=== PATIENT | female | born 1955 | race African-American/Black ===

== ENCOUNTER 2016-10-10 20:26 | Emergency (ER) | payer MEDICAID ==
[~2016-10-10] VITALS: Ht 170.2 cm; Wt 68.0 kg
[2016-10-11 02:00] LABS: CLARITY URINE CLEAR (CLEAR); COLOR URINE YELLOW (YELLOW); GLUCOSE URINE NEGATIVE (NEGATIVE); KETONES URINE NEGATIVE (NEGATIVE); LEUKOCYTE ESTERASE URINE NEGATIVE (NEGATIVE); NITRITE URINE NEGATIVE (NEGATIVE); OCCULT BLOOD URINE NEGATIVE (NEGATIVE); PH URINE 5.5 (4.5-8.0); PROTEIN URINE NEGATIVE (NEGATIVE); SPECIFIC GRAVITY URINE 1.006 (1.005-1.030); UROBILINOGEN URINE 0.2 E.U./dL (0.2-1.0)
[2016-10-11 08:48] VITALS: BP 133/71
== END 2016-10-11 09:20 | disposition home or self-care (01) ==
LOC: ER 10-11 00:23
DX: F10.129 Alcohol abuse with intoxication, unspecified (principal); M25.562 Pain in left knee; J06.9 Acute upper respiratory infection, unspecified; I10 Essential (primary) hypertension
CPT/HCPCS: 36415; 71010; 73562; 81003; 99285; G0482; Z7610

== ENCOUNTER 2016-11-05 18:38 | Emergency (ER) | payer MEDICAID ==
[~2016-11-05] VITALS: Ht 165.1 cm; Wt 60.0 kg
[2016-11-05] MEDS ORDERED: IBUPROFEN 600MG TABLET PO ONE (23:00)
[2016-11-06 00:01] LABS: CLARITY URINE CLEAR (CLEAR); COLOR URINE YELLOW (YELLOW); GLUCOSE URINE NEGATIVE (NEGATIVE); KETONES URINE NEGATIVE (NEGATIVE); LEUKOCYTE ESTERASE URINE NEGATIVE (NEGATIVE); NITRITE URINE NEGATIVE (NEGATIVE); OCCULT BLOOD URINE TRACE (NEGATIVE); PH URINE 5.5 (4.5-8.0); PROTEIN URINE NEGATIVE (NEGATIVE); SPECIFIC GRAVITY URINE 1.009 (1.005-1.030)
[2016-11-06 00:07] LABS: BACTERIA URINE 1+; CALCIUM PHOSPHATE CRYSTALS UR NONE SEEN /lpf; RBC URINE 0-2 /hpf (0-2); SQUAMOUS EPITHELIAL CELL URINE 1+ /lpf (RARE/1+); WAXY CASTS URINE NONE SEEN /lpf; WBC URINE NONE SEEN /hpf (0-2); YEAST URINE NONE SEEN
[2016-11-06 01:32] VITALS: BP 142/90
== END 2016-11-06 01:32 | disposition home or self-care (01) ==
LOC: ER 22:34
DX: M25.561 Pain in right knee (principal); M19.90 Unspecified osteoarthritis, unspecified site; F10.20 Alcohol dependence, uncomplicated; I10 Essential (primary) hypertension; F17.210 Nicotine dependence, cigarettes, uncomplicated
CPT/HCPCS: 73562; 81001; 81003; 99285

== ENCOUNTER 2016-11-15 02:54 | Emergency (ER) | payer MEDICAID ==
[~2016-11-15] VITALS: Ht 162.6 cm; Wt 64.0 kg
[2016-11-15] MEDS ORDERED: KETOROLAC 60MG/2ML VIAL IM ONE (06:45)
[2016-11-15 09:00] VITALS: BP 133/73
== END 2016-11-15 09:02 | disposition home or self-care (01) ==
LOC: ER 02:54
DX: S43.402A Unspecified sprain of left shoulder joint, initial encounter (principal); R07.81 Pleurodynia; E11.9 Type 2 diabetes mellitus without complications; I10 Essential (primary) hypertension; J45.909 Unspecified asthma, uncomplicated; F17.200 Nicotine dependence, unspecified, uncomplicated; W18.30XA Fall on same level, unspecified, initial encounter; Y93.89 Activity, other specified; Y99.8 Other external cause status; Y92.811 Bus as the place of occurrence of the external cause
CPT/HCPCS: 71010; 73030; 96372; 99284; J1885; Z7610

== ENCOUNTER 2016-11-16 11:35 | Emergency (ER) | payer MEDICAID ==
[~2016-11-16] VITALS: Ht 162.6 cm; Wt 50.0 kg
[2016-11-16 11:56] VITALS: BP 107/57
== END 2016-11-16 14:54 | disposition home or self-care (01) ==
LOC: ER 13:21
DX: R91.1 Solitary pulmonary nodule (principal); R07.81 Pleurodynia; J45.909 Unspecified asthma, uncomplicated; I10 Essential (primary) hypertension; F17.210 Nicotine dependence, cigarettes, uncomplicated
CPT/HCPCS: 71101; 99283; 99284

== ENCOUNTER 2016-11-19 11:36 | Emergency (ER) | payer MEDICAID ==
[~2016-11-19] VITALS: Ht 162.6 cm; Wt 59.0 kg
[2016-11-19] MEDS ORDERED: SODIUM CHLORIDE 0.9% 1,000 ML IV ONE (12:23)
[2016-11-19] MEDS ORDERED: ACETAMINOPHEN 325MG TABLET PO ONE (12:30)
[2016-11-19 12:58] LABS: BASOPHILS % 0.6 % (0.0-2.0); EOSINOPHILS % 0.8 % (0.0-5.0); HEMATOCRIT. 34.4 % (36.0-48.0); HEMOGLOBIN. 11.6 g/dL (12.0-16.0); LYMPHOCYTES % 15.7 % (20.0-50.0); MEAN CORPUSCULAR HEMOGLOBIN 32.8 pg (28.0-32.0); MEAN CORPUSCULAR HGB CONC 33.6 g/dL (31.0-37.0); MEAN CORPUSCULAR VOLUME 97.6 fL (81.0-99.0); MEAN PLATELET VOLUME 7.2 fl (7.4-10.4); MONOCYTES % 9.5 % (2.0-8.0); NEUTROPHILS % 73.4 % (40.0-76.0); PLATELET 477 x1000/uL (130-400); RED BLOOD CELL COUNT 3.52 mill/uL (4.2-5.4); RED CELL DISTRIBUTION WIDTH 13.9 % (11.6-14.6); WHITE BLOOD COUNT 4.6 x1000/uL (4.5-11.0)
[2016-11-19 12:59] LABS: ALBUMIN 3.2 g/dL (3.4-5.0); ANION GAP 17; CALCIUM 8.5 mg/dL (8.5-10.1); CARBON DIOXIDE 27 mEq/L (21-32); CHLORIDE 97 mEq/L (98-107); INDEX HEMOLYSI 1 (1-3); INDEX ICTERIC 1 (1-4); INDEX LIPEMIC 1 (1-3); UREA NITROGEN BLOOD 5 mg/dL (7-21)
[2016-11-19 13:04] LABS: ALANINE AMINOTRANSFERASE 18 IU/L (13-61); ETHANOL BLOOD 221 mg/dL; eGFR > 60 mL/min (>60)
[2016-11-19 16:38] VITALS: BP 112/80
== END 2016-11-19 17:13 | disposition home or self-care (01) ==
LOC: ER 12:41
DX: F10.129 Alcohol abuse with intoxication, unspecified (principal); F17.200 Nicotine dependence, unspecified, uncomplicated; W10.9XXA Fall (on) (from) unspecified stairs and steps, initial encounter; Y93.89 Activity, other specified; Y99.9 Unspecified external cause status; Y92.89 Other specified places as the place of occurrence of the external cause
CPT/HCPCS: 36415; 70450; 71010; 72170; 80053; 85025; 99285; G0482; J7030

== ENCOUNTER 2016-11-24 15:04 | Emergency (ER) | payer MEDICAID ==
[~2016-11-24] VITALS: Ht 162.6 cm; Wt 60.0 kg
[2016-11-24 16:04] VITALS: BP 100/49
[2016-11-24] MEDS ORDERED: ACETAMINOPHEN 325MG TABLET PO ONE (20:00)
== END 2016-11-25 00:24 | disposition home or self-care (01) ==
LOC: ER 15:07
DX: S20.212A Contusion of left front wall of thorax, initial encounter (principal); S09.90XA Unspecified injury of head, initial encounter; F10.129 Alcohol abuse with intoxication, unspecified; I10 Essential (primary) hypertension; F17.200 Nicotine dependence, unspecified, uncomplicated; W19.XXXA Unspecified fall, initial encounter; Y93.89 Activity, other specified; Y99.8 Other external cause status; Y92.89 Other specified places as the place of occurrence of the external cause
CPT/HCPCS: 70450; 71010; 72125; 99284; Z7610

== ENCOUNTER 2016-11-28 19:40 | Emergency (ER) | payer MEDICAID ==
[~2016-11-28] VITALS: Ht 162.6 cm; Wt 59.0 kg
[2016-11-28] MEDS ORDERED: IBUPROFEN 600MG TABLET PO ONE (22:15)
[2016-11-28 22:27] LABS: BASOPHILS % 0.2 % (0.0-2.0); EOSINOPHILS % 0.5 % (0.0-5.0); HEMATOCRIT. 31.8 % (36.0-48.0); HEMOGLOBIN. 10.9 g/dL (12.0-16.0); LYMPHOCYTES % 34.8 % (20.0-50.0); MEAN CORPUSCULAR HEMOGLOBIN 33.2 pg (28.0-32.0); MEAN CORPUSCULAR HGB CONC 34.1 g/dL (31.0-37.0); MEAN CORPUSCULAR VOLUME 97.3 fL (81.0-99.0); MEAN PLATELET VOLUME 7.4 fl (7.4-10.4); MONOCYTES % 8.6 % (2.0-8.0); NEUTROPHILS % 55.9 % (40.0-76.0); PLATELET 190 x1000/uL (130-400); RED BLOOD CELL COUNT 3.27 mill/uL (4.2-5.4); RED CELL DISTRIBUTION WIDTH 14.2 % (11.6-14.6); WHITE BLOOD COUNT 4.2 x1000/uL (4.5-11.0)
[2016-11-28 22:32] LABS: CHLORIDE 99 mEq/L (98-107); INDEX HEMOLYSI 1 (1-3); INDEX ICTERIC 1 (1-4); INDEX LIPEMIC 1 (1-3)
[2016-11-28 22:35] LABS: CLARITY URINE CLEAR (CLEAR); COLOR URINE YELLOW (YELLOW); GLUCOSE URINE NEGATIVE (NEGATIVE); KETONES URINE NEGATIVE (NEGATIVE); LEUKOCYTE ESTERASE URINE NEGATIVE (NEGATIVE); NITRITE URINE NEGATIVE (NEGATIVE); OCCULT BLOOD URINE NEGATIVE (NEGATIVE); PH URINE 5.5 (4.5-8.0); PROTEIN URINE NEGATIVE (NEGATIVE); SPECIFIC GRAVITY URINE 1.006 (1.005-1.030); UROBILINOGEN URINE 0.2 E.U./dL (0.2-1.0)
[2016-11-28 22:42] LABS: ALANINE AMINOTRANSFERASE 15 IU/L (13-61); ALBUMIN 3.3 g/dL (3.4-5.0); ANION GAP 11; CALCIUM 8.1 mg/dL (8.5-10.1); CARBON DIOXIDE 29 mEq/L (21-32); UREA NITROGEN BLOOD 8 mg/dL (7-21); eGFR > 60 mL/min (>60)
[2016-11-28 22:49] LABS: ETHANOL BLOOD 308 mg/dL
[2016-11-28 22:50] LABS: *AMPHETAMINES SCREEN URINE NEGATIVE (NEGATIVE); *BARBITURATES SCREEN URINE NEGATIVE (NEGATIVE); *BENZODIAZEPINES SCREEN URINE NEGATIVE (NEGATIVE); *COCAINE SCREEN URINE PRESUMTIVE POSITIVE (NEGATIVE); CANNABINOID URINE SCREEN NEGATIVE (NEGATIVE); ECSTASY MDMA SCREEN URINE NEGATIVE (NEGATIVE); METHADONE URINE SCREEN NEGATIVE (NEGATIVE); OPIATES URINE SCREEN NEGATIVE (NEGATIVE); PHENCYCLIDINE URINE SCREEN NEGATIVE (NEGATIVE)
[2016-11-29 16:45] VITALS: BP 146/85
== END 2016-11-29 17:20 | disposition home or self-care (01) ==
LOC: ER 22:17
DX: S20.219A Contusion of unspecified front wall of thorax, initial encounter (principal); F10.129 Alcohol abuse with intoxication, unspecified; F14.10 Cocaine abuse, uncomplicated; I10 Essential (primary) hypertension; R10.9 Unspecified abdominal pain; F17.200 Nicotine dependence, unspecified, uncomplicated; W10.8XXA Fall (on) (from) other stairs and steps, initial encounter; Y93.89 Activity, other specified; Y99.8 Other external cause status; Y92.89 Other specified places as the place of occurrence of the external cause
CPT/HCPCS: 36415; 71101; 80053; 80305; 81003; 85025; 99285; G0482

== ENCOUNTER 2016-11-30 16:47 | Emergency (ER) | payer MEDICAID | END 2016-11-30 20:58 | disposition left against medical advice (07) | LOC: ER 20:34 | DX: R06.02 Shortness of breath (principal); Z53.21 Procedure and treatment not carried out due to patient leaving prior to being seen by health care provider ==

== ENCOUNTER 2016-12-02 12:30 | Emergency (ER) | payer MEDICAID ==
[~2016-12-02] VITALS: Ht 162.6 cm; Wt 59.0 kg
[2016-12-02] MEDS ORDERED: KETOROLAC 30MG/ML VIAL IV STA (14:10)
[2016-12-02] MEDS ORDERED: KETOROLAC 30MG/ML VIAL IV ONE (14:15)
[2016-12-02 14:27] LABS: BASOPHILS % 0.4 % (0.0-2.0); EOSINOPHILS % 0.1 % (0.0-5.0); HEMATOCRIT. 32.3 % (36.0-48.0); HEMOGLOBIN. 10.9 g/dL (12.0-16.0); LYMPHOCYTES % 10.7 % (20.0-50.0); MEAN CORPUSCULAR HEMOGLOBIN 32.7 pg (28.0-32.0); MEAN CORPUSCULAR HGB CONC 33.7 g/dL (31.0-37.0); MEAN CORPUSCULAR VOLUME 96.9 fL (81.0-99.0); MEAN PLATELET VOLUME 7.5 fl (7.4-10.4); MONOCYTES % 7.4 % (2.0-8.0); NEUTROPHILS % 81.4 % (40.0-76.0); PLATELET 204 x1000/uL (130-400); RED BLOOD CELL COUNT 3.34 mill/uL (4.2-5.4); RED CELL DISTRIBUTION WIDTH 14.1 % (11.6-14.6); WHITE BLOOD COUNT 10.6 x1000/uL (4.5-11.0)
[2016-12-02 14:35] LABS: CHLORIDE 101 mEq/L (98-107); INDEX HEMOLYSI 1 (1-3); INDEX ICTERIC 1 (1-4); INDEX LIPEMIC 1 (1-3)
[2016-12-02 14:37] LABS: INR 0.9; PARTIAL THROMBOPLASTIN TIME 31.4 sec (24.0-34.0); PROTHROMBIN TIME 9.7 sec
[2016-12-02 14:38] LABS: CLARITY URINE CLEAR (CLEAR); COLOR URINE YELLOW (YELLOW); GLUCOSE URINE NEGATIVE (NEGATIVE); KETONES URINE NEGATIVE (NEGATIVE); LEUKOCYTE ESTERASE URINE NEGATIVE (NEGATIVE); NITRITE URINE NEGATIVE (NEGATIVE); OCCULT BLOOD URINE NEGATIVE (NEGATIVE); PH URINE 5.5 (4.5-8.0); PROTEIN URINE NEGATIVE (NEGATIVE); SPECIFIC GRAVITY URINE 1.009 (1.005-1.030); UROBILINOGEN URINE 0.2 E.U./dL (0.2-1.0)
[2016-12-02 14:42] LABS: ALANINE AMINOTRANSFERASE 13 IU/L (13-61); ANION GAP 14; CALCIUM 8.6 mg/dL (8.5-10.1); CARBON DIOXIDE 24 mEq/L (21-32); ETHANOL BLOOD 158 mg/dL; UREA NITROGEN BLOOD 6 mg/dL (7-21); eGFR > 60 mL/min (>60)
[2016-12-02 14:45] LABS: TROPONIN I < 0.02 ng/mL (0.00-0.04)
[2016-12-02 15:01] LABS: *AMPHETAMINES SCREEN URINE NEGATIVE (NEGATIVE); *BARBITURATES SCREEN URINE NEGATIVE (NEGATIVE); *BENZODIAZEPINES SCREEN URINE NEGATIVE (NEGATIVE); *COCAINE SCREEN URINE NEGATIVE (NEGATIVE); CANNABINOID URINE SCREEN NEGATIVE (NEGATIVE); ECSTASY MDMA SCREEN URINE NEGATIVE (NEGATIVE); METHADONE URINE SCREEN NEGATIVE (NEGATIVE); OPIATES URINE SCREEN NEGATIVE (NEGATIVE); PHENCYCLIDINE URINE SCREEN NEGATIVE (NEGATIVE)
[2016-12-02 17:16] VITALS: BP 124/69
== END 2016-12-02 17:17 | disposition home or self-care (01) ==
LOC: ER 14:16
DX: R07.89 Other chest pain (principal); F10.10 Alcohol abuse, uncomplicated; J45.909 Unspecified asthma, uncomplicated; I10 Essential (primary) hypertension; F17.200 Nicotine dependence, unspecified, uncomplicated; F14.10 Cocaine abuse, uncomplicated; Y90.6 Blood alcohol level of 120-199 mg/100 ml
CPT/HCPCS: 36415; 71010; 80053; 80305; 81003; 84484; 85025; 85610; 85730; 93005; 96374; 99285; G0482; J1885; Z7610

== ENCOUNTER 2016-12-07 19:24 | Emergency (ER) | payer MEDICAID | END 2016-12-07 20:52 | disposition left against medical advice (07) | LOC: ER 19:25 | DX: Z53.21 Procedure and treatment not carried out due to patient leaving prior to being seen by health care provider (principal) ==

== ENCOUNTER 2016-12-16 21:18 | Emergency (ER) | payer MEDICAID ==
[~2016-12-16] VITALS: Ht 162.6 cm; Wt 58.0 kg
[2016-12-17] MEDS ORDERED: IBUPROFEN 600MG TABLET PO STA (00:32)
[2016-12-17 01:09] LABS: CHLORIDE 105 mEq/L (98-107)
[2016-12-17 01:11] LABS: BASOPHILS % 0.3 % (0.0-2.0); EOSINOPHILS % 0.9 % (0.0-5.0); HEMATOCRIT. 35.5 % (36.0-48.0); HEMOGLOBIN. 12.1 g/dL (12.0-16.0); LYMPHOCYTES % 42.7 % (20.0-50.0); MEAN CORPUSCULAR HEMOGLOBIN 32.8 pg (28.0-32.0); MEAN CORPUSCULAR VOLUME 96.2 fL (81.0-99.0); MEAN PLATELET VOLUME 7.5 fl (7.4-10.4); MONOCYTES % 8.6 % (2.0-8.0); NEUTROPHILS % 47.5 % (40.0-76.0); PLATELET 213 x1000/uL (130-400); RED BLOOD CELL COUNT 3.69 mill/uL (4.2-5.4)
[2016-12-17 01:18] LABS: CARBON DIOXIDE 28 mEq/L (21-32)
[2016-12-17 01:28] LABS: CLARITY URINE CLEAR (CLEAR); COLOR URINE YELLOW (YELLOW); GLUCOSE URINE NEGATIVE (NEGATIVE); KETONES URINE NEGATIVE (NEGATIVE); LEUKOCYTE ESTERASE URINE NEGATIVE (NEGATIVE); NITRITE URINE NEGATIVE (NEGATIVE); OCCULT BLOOD URINE NEGATIVE (NEGATIVE); PROTEIN URINE NEGATIVE (NEGATIVE); SPECIFIC GRAVITY URINE 1.008 (1.005-1.030); UROBILINOGEN URINE 0.2 E.U./dL (0.2-1.0)
[2016-12-17 04:35] VITALS: BP 134/59
== END 2016-12-17 05:56 | disposition home or self-care (01) ==
LOC: ER 21:18
DX: J06.9 Acute upper respiratory infection, unspecified (principal); R07.81 Pleurodynia; J45.909 Unspecified asthma, uncomplicated; F17.210 Nicotine dependence, cigarettes, uncomplicated
CPT/HCPCS: 36415; 71010; 80053; 81003; 85025; 99285

== ENCOUNTER 2017-01-01 14:39 | Emergency (ER) | payer MEDICAID ==
[~2017-01-01] VITALS: Ht 162.6 cm; Wt 63.0 kg
[2017-01-01] MEDS ORDERED: KETOROLAC 60MG/2ML VIAL IM ONE (15:30)
[2017-01-01 15:54] LABS: CLARITY URINE CLEAR (CLEAR); COLOR URINE YELLOW (YELLOW); GLUCOSE URINE NEGATIVE (NEGATIVE); KETONES URINE NEGATIVE (NEGATIVE); LEUKOCYTE ESTERASE URINE NEGATIVE (NEGATIVE); NITRITE URINE NEGATIVE (NEGATIVE); OCCULT BLOOD URINE NEGATIVE (NEGATIVE); PH URINE 5.5 (4.5-8.0); PROTEIN URINE NEGATIVE (NEGATIVE); SPECIFIC GRAVITY URINE 1.007 (1.005-1.030); UROBILINOGEN URINE 0.2 E.U./dL (0.2-1.0)
[2017-01-01 16:03] LABS: *AMPHETAMINES SCREEN URINE NEGATIVE (NEGATIVE); *BARBITURATES SCREEN URINE NEGATIVE (NEGATIVE); *BENZODIAZEPINES SCREEN URINE NEGATIVE (NEGATIVE); *COCAINE SCREEN URINE PRESUMTIVE POSITIVE (NEGATIVE); CANNABINOID URINE SCREEN NEGATIVE (NEGATIVE); METHADONE URINE SCREEN NEGATIVE (NEGATIVE); OPIATES URINE SCREEN NEGATIVE (NEGATIVE); PHENCYCLIDINE URINE SCREEN NEGATIVE (NEGATIVE)
[2017-01-01 16:48] VITALS: BP 115/60
== END 2017-01-01 17:11 | disposition home or self-care (01) ==
LOC: ER 15:51
DX: M54.5 Low back pain (principal); F10.129 Alcohol abuse with intoxication, unspecified; R10.2 Pelvic and perineal pain; F14.10 Cocaine abuse, uncomplicated; J45.909 Unspecified asthma, uncomplicated; F17.200 Nicotine dependence, unspecified, uncomplicated
CPT/HCPCS: 72100; 80305; 81003; 96372; 99285; J1885

== ENCOUNTER 2017-01-07 11:59 | Emergency (ER) | payer MEDICAID ==
[~2017-01-07] VITALS: Ht 162.6 cm; Wt 61.0 kg
[2017-01-07] MEDS ORDERED: KETOROLAC 60MG/2ML VIAL IM ONE (13:00)
[2017-01-07 16:50] VITALS: BP 123/80
== END 2017-01-07 16:40 | disposition home or self-care (01) ==
LOC: ER 13:05
DX: S22.32XA Fracture of one rib, left side, initial encounter for closed fracture (principal); J45.909 Unspecified asthma, uncomplicated; I10 Essential (primary) hypertension; W01.0XXA Fall on same level from slipping, tripping and stumbling without subsequent striking against object, initial encounter; Y93.89 Activity, other specified; Y92.89 Other specified places as the place of occurrence of the external cause; Y99.8 Other external cause status
CPT/HCPCS: 71101; 93005; 96372; 99284; J1885; Z7610

== ENCOUNTER 2017-01-16 17:13 | Emergency (ER) | payer MEDICAID ==
[~2017-01-16] VITALS: Ht 162.6 cm; Wt 61.0 kg
[2017-01-16 17:54] VITALS: BP 128/92
[2017-01-16] MEDS ORDERED: MOTRIN (18:00)
== END 2017-01-16 20:43 | disposition left against medical advice (07) ==
LOC: ER 17:13
DX: R10.9 Unspecified abdominal pain (principal); Z53.21 Procedure and treatment not carried out due to patient leaving prior to being seen by health care provider

== ENCOUNTER 2017-01-18 19:58 | Emergency (ER) | payer MEDICAID ==
[~2017-01-18] VITALS: Ht 167.6 cm; Wt 59.0 kg
[~2017-01-18 19:58] MED LIST: MOTRIN
[2017-01-19] MEDS ORDERED: SODIUM CHLORIDE 0.9% 1,000 ML IV ONE (02:50)
[2017-01-19] MEDS ORDERED: ONDANSETRON HCL 4MG/2ML VIAL IV ONE (03:00)
[2017-01-19] MEDS ORDERED: KETOROLAC 30MG/ML VIAL IV ONE (03:00)
[2017-01-19 03:18] LABS: CLARITY URINE CLEAR (CLEAR); COLOR URINE YELLOW (YELLOW); GLUCOSE URINE NEGATIVE (NEGATIVE); KETONES URINE NEGATIVE (NEGATIVE); LEUKOCYTE ESTERASE URINE NEGATIVE (NEGATIVE); NITRITE URINE NEGATIVE (NEGATIVE); OCCULT BLOOD URINE NEGATIVE (NEGATIVE); PH URINE 5.5 (4.5-8.0); PROTEIN URINE NEGATIVE (NEGATIVE); SPECIFIC GRAVITY URINE 1.006 (1.005-1.030); UROBILINOGEN URINE 0.2 E.U./dL (0.2-1.0)
[2017-01-19 03:40] LABS: *AMPHETAMINES SCREEN URINE NEGATIVE (NEGATIVE); *BARBITURATES SCREEN URINE NEGATIVE (NEGATIVE); *BENZODIAZEPINES SCREEN URINE NEGATIVE (NEGATIVE); *COCAINE SCREEN URINE NEGATIVE (NEGATIVE); CANNABINOID URINE SCREEN NEGATIVE (NEGATIVE); METHADONE URINE SCREEN NEGATIVE (NEGATIVE); OPIATES URINE SCREEN NEGATIVE (NEGATIVE); PHENCYCLIDINE URINE SCREEN NEGATIVE (NEGATIVE)
[2017-01-19 07:25] VITALS: BP 122/73
== END 2017-01-19 08:24 | disposition home or self-care (01) ==
LOC: ER 19:59
DX: F10.10 Alcohol abuse, uncomplicated (principal); I10 Essential (primary) hypertension; F17.210 Nicotine dependence, cigarettes, uncomplicated; Y90.7 Blood alcohol level of 200-239 mg/100 ml; Z91.81 History of falling
CPT/HCPCS: 36415; 70450; 72040; 80305; 81003; 96361; 96374; 96375; 99285; G0482; J1885; J2405; J7030; Z7610

== ENCOUNTER 2017-01-22 15:52 | Emergency (ER) | payer MEDICAID ==
[~2017-01-22] VITALS: Ht 165.1 cm; Wt 65.0 kg
[2017-01-23] MEDS ORDERED: ACETAMINOPHEN 650MG/20.3ML UDC PO ONE (07:30)
[2017-01-23 12:00] VITALS: BP 126/84
== END 2017-01-23 12:31 | disposition home or self-care (01) ==
LOC: ER 16:22
DX: R07.81 Pleurodynia (principal); F10.129 Alcohol abuse with intoxication, unspecified; I10 Essential (primary) hypertension; E11.9 Type 2 diabetes mellitus without complications; J45.909 Unspecified asthma, uncomplicated; Y90.8 Blood alcohol level of 240 mg/100 ml or more
CPT/HCPCS: 36415; 71010; 99285; G0482

== ENCOUNTER 2017-01-29 15:21 | Emergency (ER) | payer MEDICAID ==
[~2017-01-29] VITALS: Ht 162.6 cm; Wt 62.0 kg
[2017-01-29 15:29] VITALS: BP 114/58
== END 2017-01-29 18:20 | disposition left against medical advice (07) ==
LOC: ER 15:21
DX: R10.9 Unspecified abdominal pain (principal); R11.0 Nausea; Z53.21 Procedure and treatment not carried out due to patient leaving prior to being seen by health care provider

== ENCOUNTER 2017-02-04 13:57 | Emergency (ER) | payer MEDICAID ==
[~2017-02-04] VITALS: Ht 165.1 cm; Wt 60.0 kg
[2017-02-04 14:00] VITALS: BP 138/91
== END 2017-02-04 21:34 | disposition left against medical advice (07) ==
LOC: ER 21:28
DX: R07.81 Pleurodynia (principal); Z53.21 Procedure and treatment not carried out due to patient leaving prior to being seen by health care provider

== ENCOUNTER 2017-02-10 15:16 | Emergency (ER) | payer MEDICAID ==
[~2017-02-10] VITALS: Ht 162.6 cm; Wt 59.0 kg
[2017-02-10] MEDS ORDERED: IBUPROFEN 600MG TABLET PO ONE (18:45)
[2017-02-10 19:35] VITALS: BP 110/60
== END 2017-02-10 21:20 | disposition home or self-care (01) ==
LOC: ER 17:56
DX: S22.42XA Multiple fractures of ribs, left side, initial encounter for closed fracture (principal); I11.9 Hypertensive heart disease without heart failure; I51.7 Cardiomegaly; F17.200 Nicotine dependence, unspecified, uncomplicated; W01.0XXA Fall on same level from slipping, tripping and stumbling without subsequent striking against object, initial encounter; Y93.89 Activity, other specified; Y92.89 Other specified places as the place of occurrence of the external cause; Y99.8 Other external cause status
CPT/HCPCS: 71111; 99284

== ENCOUNTER 2017-02-27 11:50 | Emergency (ER) | payer MEDICAID ==
[~2017-02-27] VITALS: Ht 160 cm; Wt 45.0 kg
[2017-02-27] MEDS ORDERED: SODIUM CHLORIDE 0.9% 1,000 ML IV ONE (12:08)
[2017-02-27] MEDS ORDERED: FAMOTIDINE 20MG/2ML VIAL IV ONE (12:15)
[2017-02-27 13:04] LABS: BASOPHILS % 0.1 % (0.0-2.0); EOSINOPHILS % 0.2 % (0.0-5.0); HEMATOCRIT. 33.2 % (36.0-48.0); HEMOGLOBIN. 11.5 g/dL (12.0-16.0); LYMPHOCYTES % 12.4 % (20.0-50.0); MEAN CORPUSCULAR HEMOGLOBIN 33.3 pg (28.0-32.0); MEAN CORPUSCULAR VOLUME 96.3 fL (81.0-99.0); NEUTROPHILS % 75.3 % (40.0-76.0); PLATELET 153 x1000/uL (130-400); RED BLOOD CELL COUNT 3.45 mill/uL (4.2-5.4); RED CELL DISTRIBUTION WIDTH 13.8 % (11.6-14.6)
[2017-02-27 13:12] LABS: *AMPHETAMINES SCREEN URINE NEGATIVE (NEGATIVE); *BARBITURATES SCREEN URINE NEGATIVE (NEGATIVE); *BENZODIAZEPINES SCREEN URINE NEGATIVE (NEGATIVE); *COCAINE SCREEN URINE NEGATIVE (NEGATIVE); CANNABINOID URINE SCREEN NEGATIVE (NEGATIVE); METHADONE URINE SCREEN NEGATIVE (NEGATIVE); OPIATES URINE SCREEN NEGATIVE (NEGATIVE); PHENCYCLIDINE URINE SCREEN NEGATIVE (NEGATIVE)
[2017-02-27 13:12] LABS: CARBON DIOXIDE 22 mEq/L (21-32); CHLORIDE 94 mEq/L (98-107); ETHANOL BLOOD 80 mg/dL
[2017-02-27 14:23] VITALS: BP 115/78
== END 2017-02-27 14:26 | disposition home or self-care (01) ==
LOC: ER 12:13
DX: F10.129 Alcohol abuse with intoxication, unspecified (principal); I10 Essential (primary) hypertension; J45.909 Unspecified asthma, uncomplicated; E11.9 Type 2 diabetes mellitus without complications; W01.0XXA Fall on same level from slipping, tripping and stumbling without subsequent striking against object, initial encounter; Y93.89 Activity, other specified; Y99.8 Other external cause status; Y92.89 Other specified places as the place of occurrence of the external cause
CPT/HCPCS: 36415; 80053; 80305; 85025; 96361; 96374; 99284; G0482; J3490; J7030; Z7610

== ENCOUNTER 2017-03-20 17:17 | Emergency (ER) | payer MEDICAID ==
[~2017-03-20] VITALS: Ht 165.1 cm; Wt 66.0 kg
[2017-03-20 19:55] LABS: BASOPHILS % 0.3 % (0.0-2.0); EOSINOPHILS % 0.7 % (0.0-5.0); HEMOGLOBIN. 9.9 g/dL (12.0-16.0); LYMPHOCYTES % 28.8 % (20.0-50.0); MEAN CORPUSCULAR HEMOGLOBIN 33.3 pg (28.0-32.0); MEAN CORPUSCULAR VOLUME 97.3 fL (81.0-99.0); MEAN PLATELET VOLUME 7.9 fl (7.4-10.4); MONOCYTES % 7.3 % (2.0-8.0); NEUTROPHILS % 62.9 % (40.0-76.0); PLATELET 270 x1000/uL (130-400); RED BLOOD CELL COUNT 2.98 mill/uL (4.2-5.4)
[2017-03-20 20:03] LABS: CARBON DIOXIDE 28 mEq/L (21-32); CHLORIDE 107 mEq/L (98-107); ETHANOL BLOOD 140 mg/dL
[2017-03-20 22:23] VITALS: BP 116/71
== END 2017-03-20 22:17 | disposition home or self-care (01) ==
LOC: ER 19:30
DX: R10.9 Unspecified abdominal pain (principal); F10.129 Alcohol abuse with intoxication, unspecified; I10 Essential (primary) hypertension; Y90.6 Blood alcohol level of 120-199 mg/100 ml
CPT/HCPCS: 36415; 80053; 82962; 83690; 85025; 99284; G0482

== ENCOUNTER 2017-03-21 04:37 | Emergency (ER) | payer MEDICAID ==
[~2017-03-21] VITALS: Ht 162.6 cm; Wt 61.0 kg
[2017-03-21] MEDS ORDERED: KETOROLAC 30MG/ML VIAL IV STA (07:42)
[2017-03-21 08:09] LABS: BASOPHILS % 0.2 % (0.0-2.0); EOSINOPHILS % 0.4 % (0.0-5.0); HEMATOCRIT. 28.9 % (36.0-48.0); HEMOGLOBIN. 9.7 g/dL (12.0-16.0); LYMPHOCYTES % 18.9 % (20.0-50.0); MEAN CORPUSCULAR VOLUME 98.4 fL (81.0-99.0); MEAN PLATELET VOLUME 7.7 fl (7.4-10.4); MONOCYTES % 8.7 % (2.0-8.0); NEUTROPHILS % 71.8 % (40.0-76.0); PLATELET 258 x1000/uL (130-400); RED BLOOD CELL COUNT 2.93 mill/uL (4.2-5.4); RED CELL DISTRIBUTION WIDTH 14.2 % (11.6-14.6)
[2017-03-21 08:10] LABS: GLUCOSE URINE NEGATIVE (NEGATIVE); KETONES URINE NEGATIVE (NEGATIVE); LEUKOCYTE ESTERASE URINE 1+ (NEGATIVE); NITRITE URINE NEGATIVE (NEGATIVE); OCCULT BLOOD URINE NEGATIVE (NEGATIVE); PH URINE 5.5 (4.5-8.0); PROTEIN URINE NEGATIVE (NEGATIVE); SPECIFIC GRAVITY URINE 1.021 (1.005-1.030); UROBILINOGEN URINE 0.2 E.U./dL (0.2-1.0)
[2017-03-21 08:14] LABS: CHLORIDE 110 mEq/L (98-107); CLARITY URINE CLOUDY (CLEAR); COLOR URINE YELLOW (YELLOW)
[2017-03-21 08:16] LABS: INR 0.9; PROTHROMBIN TIME 9.7 sec (9.4-11.6)
[2017-03-21 08:23] LABS: CARBON DIOXIDE 29 mEq/L (21-32); ETHANOL BLOOD < 10 mg/dL
[2017-03-21 08:31] LABS: *AMPHETAMINES SCREEN URINE NEGATIVE (NEGATIVE); *BARBITURATES SCREEN URINE NEGATIVE (NEGATIVE); *BENZODIAZEPINES SCREEN URINE NEGATIVE (NEGATIVE); CANNABINOID URINE SCREEN PRESUMTIVE POSITIVE (NEGATIVE); METHADONE URINE SCREEN NEGATIVE (NEGATIVE); OPIATES URINE SCREEN NEGATIVE (NEGATIVE); PHENCYCLIDINE URINE SCREEN NEGATIVE (NEGATIVE)
[2017-03-21 08:45] LABS: *COCAINE SCREEN URINE PRESUMTIVE POSITIVE (NEGATIVE)
[2017-03-21 09:30] VITALS: BP 107/57
== END 2017-03-21 10:28 | disposition home or self-care (01) ==
LOC: ER 04:37
DX: R10.32 Left lower quadrant pain (principal); F17.210 Nicotine dependence, cigarettes, uncomplicated; F14.10 Cocaine abuse, uncomplicated; F12.10 Cannabis abuse, uncomplicated
CPT/HCPCS: 36415; 80053; 80305; 81001; 81025; 83690; 85025; 85610; 96374; 99284; G0482; J1885; Z7610

== ENCOUNTER 2017-03-21 15:33 | Emergency (ER) | payer MEDICAID | END 2017-03-21 16:52 | disposition left against medical advice (07) | LOC: ER 15:33 | DX: M54.9 Dorsalgia, unspecified (principal); Z53.21 Procedure and treatment not carried out due to patient leaving prior to being seen by health care provider ==

== ENCOUNTER 2017-04-19 18:01 | Emergency (ER) | payer MEDICAID ==
[~2017-04-19] VITALS: Ht 160 cm; Wt 64.0 kg
[2017-04-19] MEDS ORDERED: LIDOCAINE HCL 1% 20ML VIAL (Pyxis) INJ MC ONE (21:45)
[2017-04-19] MEDS ORDERED: BACITRACIN ZINC OINT UDPKT TOP ONE (21:45)
[2017-04-19] MEDS ORDERED: TETANUS, DIPHTHERIA, PERTUSSIS VAC/PF 0.5ML (>7YR OLD) IM ONE (21:45)
[2017-04-20 05:29] VITALS: BP 108/73
== END 2017-04-20 06:51 | disposition home or self-care (01) ==
LOC: ER 18:31
DX: S01.01XA Laceration without foreign body of scalp, initial encounter (principal); S79.912A Unspecified injury of left hip, initial encounter; M85.80 Other specified disorders of bone density and structure, unspecified site; W01.0XXA Fall on same level from slipping, tripping and stumbling without subsequent striking against object, initial encounter; Y93.89 Activity, other specified; Y92.018 Other place in single-family (private) house as the place of occurrence of the external cause
CPT/HCPCS: 12002; 70450; 73502; 99284; J3490; X7700; Z7610

== ENCOUNTER 2017-05-14 16:23 | Emergency (ER) | payer MEDICAID ==
[~2017-05-14] VITALS: Ht 167.6 cm; Wt 55.0 kg
[2017-05-14] MEDS ORDERED: SODIUM CHLORIDE 0.9% 1,000 ML IV ONE (18:26)
[2017-05-14] MEDS ORDERED: ONDANSETRON HCL 4MG/2ML VIAL IV ONE (18:30)
[2017-05-14] MEDS ORDERED: ACETAMINOPHEN 325MG TABLET PO ONE (18:30)
[2017-05-14 19:09] LABS: CLARITY URINE CLOUDY (CLEAR); COLOR URINE YELLOW (YELLOW); GLUCOSE URINE NEGATIVE (NEGATIVE); KETONES URINE NEGATIVE (NEGATIVE); LEUKOCYTE ESTERASE URINE 2+ (NEGATIVE); NITRITE URINE POSITIVE (NEGATIVE); OCCULT BLOOD URINE TRACE (NEGATIVE); PROTEIN URINE NEGATIVE (NEGATIVE); UROBILINOGEN URINE 0.2 E.U./dL (0.2-1.0)
[2017-05-14 19:10] LABS: BASOPHILS % 0.2 % (0.0-2.0); EOSINOPHILS % 0.5 % (0.0-5.0); HEMATOCRIT. 35.7 % (36.0-48.0); HEMOGLOBIN. 12.1 g/dL (12.0-16.0); LYMPHOCYTES % 34.4 % (20.0-50.0); MEAN CORPUSCULAR HEMOGLOBIN 33.4 pg (28.0-32.0); MEAN CORPUSCULAR VOLUME 98.3 fL (81.0-99.0); MEAN PLATELET VOLUME 7.9 fl (7.4-10.4); MONOCYTES % 9.3 % (2.0-8.0); NEUTROPHILS % 55.6 % (40.0-76.0); PLATELET 290 x1000/uL (130-400); RED BLOOD CELL COUNT 3.63 mill/uL (4.2-5.4); RED CELL DISTRIBUTION WIDTH 13.8 % (11.6-14.6)
[2017-05-14 19:21] LABS: CARBON DIOXIDE 25 mEq/L (21-32); CHLORIDE 101 mEq/L (98-107); ETHANOL BLOOD 222 mg/dL
[2017-05-14 19:23] LABS: *AMPHETAMINES SCREEN URINE NEGATIVE (NEGATIVE); *BARBITURATES SCREEN URINE NEGATIVE (NEGATIVE); *BENZODIAZEPINES SCREEN URINE NEGATIVE (NEGATIVE); *COCAINE SCREEN URINE NEGATIVE (NEGATIVE); CANNABINOID URINE SCREEN NEGATIVE (NEGATIVE); OPIATES URINE SCREEN NEGATIVE (NEGATIVE); PHENCYCLIDINE URINE SCREEN NEGATIVE (NEGATIVE)
[2017-05-14 19:28] LABS: METHADONE URINE SCREEN NEGATIVE (NEGATIVE)
[2017-05-14 22:35] VITALS: BP 143/77
== END 2017-05-14 22:35 | disposition home or self-care (01) ==
LOC: ER 16:59
DX: S20.212A Contusion of left front wall of thorax, initial encounter (principal); S20.211A Contusion of right front wall of thorax, initial encounter; S00.01XA Abrasion of scalp, initial encounter; F10.129 Alcohol abuse with intoxication, unspecified; J45.909 Unspecified asthma, uncomplicated; I10 Essential (primary) hypertension; E11.9 Type 2 diabetes mellitus without complications; F17.200 Nicotine dependence, unspecified, uncomplicated; W10.9XXA Fall (on) (from) unspecified stairs and steps, initial encounter; Y93.89 Activity, other specified; Y92.89 Other specified places as the place of occurrence of the external cause; Y99.8 Other external cause status
CPT/HCPCS: 36415; 70450; 71111; 80048; 80305; 81001; 85025; 87086; 96361; 96374; 99285; G0482; J2405; J7030; Z7610

== ENCOUNTER 2017-05-19 17:51 | Emergency (ER) | payer MEDICAID ==
[~2017-05-19] VITALS: Ht 167.6 cm; Wt 59.0 kg
[2017-05-19] MEDS ORDERED: MORPHINE SULFATE 10 MG/ML CPJ IM ONE (18:45)
[2017-05-19] MEDS ORDERED: KETOROLAC 30MG/ML VIAL IM ONE (18:45)
[2017-05-20 06:14] VITALS: BP 152/73
== END 2017-05-20 06:30 | disposition home or self-care (01) ==
LOC: ER 17:55
DX: S09.90XA Unspecified injury of head, initial encounter (principal); T51.0X1A Toxic effect of ethanol, accidental (unintentional), initial encounter; I10 Essential (primary) hypertension; E11.9 Type 2 diabetes mellitus without complications; J45.909 Unspecified asthma, uncomplicated; F17.200 Nicotine dependence, unspecified, uncomplicated; W19.XXXA Unspecified fall, initial encounter; Y93.89 Activity, other specified; Y92.89 Other specified places as the place of occurrence of the external cause; Y99.8 Other external cause status
CPT/HCPCS: 36415; 70450; 73560; 82962; 96372; 99285; 99406; G0482; J1885; J2270; Z7610

== ENCOUNTER 2017-05-20 16:00 | Emergency (ER) | payer MEDICAID ==
[~2017-05-20] VITALS: Ht 162.6 cm; Wt 59.0 kg
[2017-05-20] MEDS ORDERED: IBUPROFEN 400MG TABLET PO ONE (19:15)
[2017-05-20 21:04] VITALS: BP 105/78
== END 2017-05-20 20:55 | disposition home or self-care (01) ==
LOC: ER 16:00
DX: R07.81 Pleurodynia (principal); R51 Headache; F17.200 Nicotine dependence, unspecified, uncomplicated
CPT/HCPCS: 99283; Z7610

== ENCOUNTER 2017-05-22 16:42 | Emergency (ER) | payer MEDICAID ==
[~2017-05-22] VITALS: Ht 162.6 cm; Wt 59.0 kg
[2017-05-22 19:51] LABS: CLARITY URINE CLOUDY (CLEAR); COLOR URINE YELLOW (YELLOW); GLUCOSE URINE NEGATIVE (NEGATIVE); KETONES URINE 1+ (NEGATIVE); LEUKOCYTE ESTERASE URINE 2+ (NEGATIVE); NITRITE URINE POSITIVE (NEGATIVE); OCCULT BLOOD URINE TRACE (NEGATIVE); PROTEIN URINE 1+ (NEGATIVE); SPECIFIC GRAVITY URINE 1.017 (1.005-1.030)
[2017-05-22] MEDS ORDERED: IBUPROFEN 600MG TABLET PO ONE (20:30)
[2017-05-22 20:32] VITALS: BP 147/76
== END 2017-05-22 21:56 | disposition home or self-care (01) ==
LOC: ER 16:53
DX: M13.861 Other specified arthritis, right knee (principal); N39.0 Urinary tract infection, site not specified
CPT/HCPCS: 73560; 81001; 99285

== ENCOUNTER 2017-05-24 23:42 | Emergency (ER) | payer MEDICAID ==
[~2017-05-24] VITALS: Ht 162.6 cm; Wt 54.0 kg
[2017-05-25 01:23] LABS: BASOPHILS % 0.2 % (0.0-2.0); EOSINOPHILS % 0.3 % (0.0-5.0); HEMATOCRIT. 35.8 % (36.0-48.0); HEMOGLOBIN. 12.2 g/dL (12.0-16.0); LYMPHOCYTES % 28.8 % (20.0-50.0); MEAN CORPUSCULAR HEMOGLOBIN 33.9 pg (28.0-32.0); MEAN CORPUSCULAR VOLUME 99.1 fL (81.0-99.0); MEAN PLATELET VOLUME 7.5 fl (7.4-10.4); MONOCYTES % 9.6 % (2.0-8.0); NEUTROPHILS % 61.1 % (40.0-76.0); PLATELET 224 x1000/uL (130-400); RED BLOOD CELL COUNT 3.61 mill/uL (4.2-5.4)
[2017-05-25 02:21] LABS: CARBON DIOXIDE 22 mEq/L (21-32); CHLORIDE 106 mEq/L (98-107)
[2017-05-25 02:40] LABS: ETHANOL BLOOD 354 mg/dL
[2017-05-25] MEDS ORDERED: BACITRACIN ZINC OINT UDPKT TOP ONE (03:30)
[2017-05-25] MEDS ORDERED: SODIUM CHLORIDE 0.9% 1,000 ML IV ONE (04:15)
[2017-05-25 06:00] VITALS: BP 118/80
== END 2017-05-25 08:49 | disposition home or self-care (01) ==
LOC: ER 23:42
DX: F10.129 Alcohol abuse with intoxication, unspecified (principal); I10 Essential (primary) hypertension; J45.909 Unspecified asthma, uncomplicated; E11.9 Type 2 diabetes mellitus without complications; Y90.8 Blood alcohol level of 240 mg/100 ml or more
CPT/HCPCS: 36415; 70450; 80053; 85025; 96360; 96361; 99285; G0482; J7030; Z7610

== ENCOUNTER 2017-05-27 19:28 | Emergency (ER) | payer MEDICAID ==
[~2017-05-27] VITALS: Ht 172.7 cm; Wt 64.0 kg
[2017-05-27 20:24] LABS: BASOPHILS % 0.6 % (0.0-2.0); EOSINOPHILS % 0.6 % (0.0-5.0); HEMATOCRIT. 34.2 % (36.0-48.0); HEMOGLOBIN. 11.6 g/dL (12.0-16.0); LYMPHOCYTES % 30.1 % (20.0-50.0); MEAN CORPUSCULAR HEMOGLOBIN 33.7 pg (28.0-32.0); MEAN CORPUSCULAR VOLUME 99.7 fL (81.0-99.0); MEAN PLATELET VOLUME 7.8 fl (7.4-10.4); MONOCYTES % 9.4 % (2.0-8.0); NEUTROPHILS % 59.3 % (40.0-76.0); PLATELET 226 x1000/uL (130-400); RED BLOOD CELL COUNT 3.43 mill/uL (4.2-5.4)
[2017-05-27 20:42] LABS: CHLORIDE 99 mEq/L (98-107)
[2017-05-27 20:47] LABS: CARBON DIOXIDE 28 mEq/L (21-32)
[2017-05-27 20:56] LABS: ETHANOL BLOOD 326 mg/dL
[2017-05-28 04:05] VITALS: BP 120/56
== END 2017-05-28 04:09 | disposition home or self-care (01) ==
LOC: ER 19:41
DX: T51.0X1A Toxic effect of ethanol, accidental (unintentional), initial encounter (principal); S09.90XA Unspecified injury of head, initial encounter; J45.909 Unspecified asthma, uncomplicated; I10 Essential (primary) hypertension; F17.200 Nicotine dependence, unspecified, uncomplicated; W19.XXXA Unspecified fall, initial encounter; Y93.89 Activity, other specified; Y99.8 Other external cause status; Y92.89 Other specified places as the place of occurrence of the external cause
CPT/HCPCS: 36415; 70450; 80053; 85025; 99285; G0482

== ENCOUNTER 2017-06-01 05:10 | Emergency (ER) | payer MEDICAID ==
[~2017-06-01] VITALS: Ht 162.6 cm; Wt 55.0 kg
[2017-06-01] MEDS ORDERED: ACETAMINOPHEN 325MG TABLET PO ONE (07:00)
[2017-06-01 07:43] LABS: BASOPHILS % 0.3 % (0.0-2.0); EOSINOPHILS % 0.1 % (0.0-5.0); HEMATOCRIT. 33.9 % (36.0-48.0); HEMOGLOBIN. 11.5 g/dL (12.0-16.0); LYMPHOCYTES % 23.7 % (20.0-50.0); MEAN CORPUSCULAR HEMOGLOBIN 33.7 pg (28.0-32.0); MEAN CORPUSCULAR VOLUME 99.3 fL (81.0-99.0); MEAN PLATELET VOLUME 7.1 fl (7.4-10.4); MONOCYTES % 9.2 % (2.0-8.0); NEUTROPHILS % 66.7 % (40.0-76.0); PLATELET 290 x1000/uL (130-400); RED BLOOD CELL COUNT 3.42 mill/uL (4.2-5.4); RED CELL DISTRIBUTION WIDTH 14.2 % (11.6-14.6)
[2017-06-01 07:50] LABS: CHLORIDE 108 mEq/L (98-107)
[2017-06-01 07:55] LABS: *AMPHETAMINES SCREEN URINE NEGATIVE (NEGATIVE); *BARBITURATES SCREEN URINE NEGATIVE (NEGATIVE); *BENZODIAZEPINES SCREEN URINE NEGATIVE (NEGATIVE); *COCAINE SCREEN URINE NEGATIVE (NEGATIVE); CANNABINOID URINE SCREEN NEGATIVE (NEGATIVE); METHADONE URINE SCREEN NEGATIVE (NEGATIVE); OPIATES URINE SCREEN NEGATIVE (NEGATIVE); PHENCYCLIDINE URINE SCREEN NEGATIVE (NEGATIVE)
[2017-06-01 07:56] LABS: CARBON DIOXIDE 26 mEq/L (21-32); ETHANOL BLOOD 233 mg/dL
[2017-06-01] MEDS ORDERED: SODIUM CHLORIDE 0.9% 1,000 ML IV ONE (08:15)
[2017-06-01 12:20] VITALS: BP 135/64
== END 2017-06-01 12:21 | disposition home or self-care (01) ==
LOC: ER 05:10
DX: S09.8XXA Other specified injuries of head, initial encounter (principal); I10 Essential (primary) hypertension; F10.129 Alcohol abuse with intoxication, unspecified; F17.210 Nicotine dependence, cigarettes, uncomplicated; F14.10 Cocaine abuse, uncomplicated; W01.0XXA Fall on same level from slipping, tripping and stumbling without subsequent striking against object, initial encounter; Y93.E9 Activity, other interior property and clothing maintenance
CPT/HCPCS: 36415; 70450; 80048; 80305; 85025; 96360; 96361; 99285; G0482; J7030; Z7610

== ENCOUNTER 2017-06-06 11:35 | Emergency (ER) | payer MEDICAID ==
[~2017-06-06] VITALS: Ht 162.6 cm; Wt 55.0 kg
[2017-06-06] MEDS ORDERED: IBUPROFEN 600MG TABLET PO STA (14:43)
[2017-06-06 14:55] VITALS: BP 102/66
== END 2017-06-06 15:51 | disposition home or self-care (01) ==
LOC: ER 11:44
DX: S09.90XA Unspecified injury of head, initial encounter (principal); W01.0XXA Fall on same level from slipping, tripping and stumbling without subsequent striking against object, initial encounter; M79.1 Myalgia; J45.909 Unspecified asthma, uncomplicated; F14.10 Cocaine abuse, uncomplicated; E11.9 Type 2 diabetes mellitus without complications; I10 Essential (primary) hypertension
CPT/HCPCS: 70450; 99284

== ENCOUNTER 2017-06-06 23:36 | Emergency (ER) | payer MEDICAID ==
[~2017-06-06] VITALS: Ht 165.1 cm; Wt 59.0 kg
[2017-06-07] MEDS ORDERED: SODIUM CHLORIDE 0.9% 1,000 ML IV ONE (01:33)
[2017-06-07 01:53] LABS: BASOPHILS % 0.3 % (0.0-2.0); EOSINOPHILS % 0.4 % (0.0-5.0); HEMATOCRIT. 32.8 % (36.0-48.0); HEMOGLOBIN. 11.3 g/dL (12.0-16.0); LYMPHOCYTES % 12.6 % (20.0-50.0); MEAN CORPUSCULAR HEMOGLOBIN 34.1 pg (28.0-32.0); MEAN CORPUSCULAR VOLUME 99.1 fL (81.0-99.0); MEAN PLATELET VOLUME 7.6 fl (7.4-10.4); MONOCYTES % 10.6 % (2.0-8.0); NEUTROPHILS % 76.1 % (40.0-76.0); PLATELET 217 x1000/uL (130-400); RED BLOOD CELL COUNT 3.31 mill/uL (4.2-5.4); RED CELL DISTRIBUTION WIDTH 14.1 % (11.6-14.6)
[2017-06-07 01:57] LABS: CHLORIDE 100 mEq/L (98-107)
[2017-06-07 02:06] LABS: CARBON DIOXIDE 27 mEq/L (21-32); ETHANOL BLOOD 112 mg/dL
[2017-06-07 06:40] VITALS: BP 151/93
== END 2017-06-07 07:01 | disposition home or self-care (01) ==
LOC: ER 23:36
DX: R51 Headache (principal); G31.2 Degeneration of nervous system due to alcohol; E11.9 Type 2 diabetes mellitus without complications; J45.909 Unspecified asthma, uncomplicated; F14.10 Cocaine abuse, uncomplicated; I10 Essential (primary) hypertension
CPT/HCPCS: 36415; 80053; 85025; 96360; 99284; G0482; J7030; Z7610

== ENCOUNTER 2017-06-08 17:30 | Emergency (ER) | payer MEDICAID ==
[~2017-06-08] VITALS: Ht 160 cm; Wt 65.0 kg
[2017-06-08 18:07] LABS: HEMATOCRIT. 33.6 % (36.0-48.0); HEMOGLOBIN. 11.3 g/dL (12.0-16.0); MEAN CORPUSCULAR HEMOGLOBIN 33.7 pg (28.0-32.0); MEAN CORPUSCULAR VOLUME 99.9 fL (81.0-99.0); MEAN PLATELET VOLUME 7.6 fl (7.4-10.4); PLATELET 234 x1000/uL (130-400); RED BLOOD CELL COUNT 3.37 mill/uL (4.2-5.4); RED CELL DISTRIBUTION WIDTH 14.1 % (11.6-14.6)
[2017-06-08 18:11] LABS: CHLORIDE 100 mEq/L (98-107)
[2017-06-08 18:16] LABS: CARBON DIOXIDE 26 mEq/L (21-32); ETHANOL BLOOD 272 mg/dL
[2017-06-08] MEDS: SODIUM CHLORIDE 0.9% 1,000 ML IV ONE (18:23)
[2017-06-08 18:39] LABS: *AMPHETAMINES SCREEN URINE NEGATIVE (NEGATIVE); *BARBITURATES SCREEN URINE NEGATIVE (NEGATIVE); *BENZODIAZEPINES SCREEN URINE NEGATIVE (NEGATIVE); *COCAINE SCREEN URINE NEGATIVE (NEGATIVE); CANNABINOID URINE SCREEN NEGATIVE (NEGATIVE); METHADONE URINE SCREEN NEGATIVE (NEGATIVE); OPIATES URINE SCREEN NEGATIVE (NEGATIVE); PHENCYCLIDINE URINE SCREEN NEGATIVE (NEGATIVE)
[2017-06-08 19:46] LABS: PLATELET ESTIMATE NORMAL
[2017-06-09 06:00] VITALS: BP 117/88
== END 2017-06-09 06:13 | disposition home or self-care (01) ==
LOC: ER 17:35
DX: S06.0X0A Concussion without loss of consciousness, initial encounter (principal); F10.129 Alcohol abuse with intoxication, unspecified; I10 Essential (primary) hypertension; E11.9 Type 2 diabetes mellitus without complications; J45.909 Unspecified asthma, uncomplicated; F17.200 Nicotine dependence, unspecified, uncomplicated; F14.10 Cocaine abuse, uncomplicated; W10.9XXA Fall (on) (from) unspecified stairs and steps, initial encounter; Y93.89 Activity, other specified; Y92.89 Other specified places as the place of occurrence of the external cause; Y99.8 Other external cause status
CPT/HCPCS: 36415; 70450; 70486; 80048; 80305; 83735; 85025; 93005; 96360; 99285; G0482; J7030

== ENCOUNTER 2017-06-11 16:56 | Emergency (ER) | payer MEDICAID, OTHER ==
[~2017-06-11] VITALS: Ht 162.6 cm; Wt 55.0 kg
[2017-06-12 02:19] LABS: CHLORIDE 102 mEq/L (98-107)
[2017-06-12 02:21] LABS: BASOPHILS % 0.3 % (0.0-2.0); EOSINOPHILS % 0.9 % (0.0-5.0); HEMATOCRIT. 33.4 % (36.0-48.0); HEMOGLOBIN. 11.3 g/dL (12.0-16.0); LYMPHOCYTES % 31.6 % (20.0-50.0); MEAN CORPUSCULAR VOLUME 97.7 fL (81.0-99.0); MEAN PLATELET VOLUME 7.6 fl (7.4-10.4); MONOCYTES % 11.3 % (2.0-8.0); NEUTROPHILS % 55.9 % (40.0-76.0); PLATELET 235 x1000/uL (130-400); RED BLOOD CELL COUNT 3.42 mill/uL (4.2-5.4); RED CELL DISTRIBUTION WIDTH 13.5 % (11.6-14.6)
[2017-06-12 02:30] LABS: CARBON DIOXIDE 29 mEq/L (21-32); ETHANOL BLOOD < 10 mg/dL
[2017-06-12] MEDS ORDERED: ACETAMINOPHEN 325MG TABLET PO ONE (03:45)
[2017-06-12 03:47] LABS: CLARITY URINE TURBID (CLEAR); COLOR URINE YELLOW (YELLOW); GLUCOSE URINE NEGATIVE (NEGATIVE); KETONES URINE NEGATIVE (NEGATIVE); LEUKOCYTE ESTERASE URINE 3+ (NEGATIVE); NITRITE URINE POSITIVE (NEGATIVE); OCCULT BLOOD URINE 1+ (NEGATIVE); PH URINE 6.5 (4.5-8.0); PROTEIN URINE NEGATIVE (NEGATIVE); UROBILINOGEN URINE 0.2 E.U./dL (0.2-1.0)
[2017-06-12 04:01] LABS: *AMPHETAMINES SCREEN URINE NEGATIVE (NEGATIVE); *BARBITURATES SCREEN URINE NEGATIVE (NEGATIVE); *BENZODIAZEPINES SCREEN URINE NEGATIVE (NEGATIVE); *COCAINE SCREEN URINE NEGATIVE (NEGATIVE); CANNABINOID URINE SCREEN NEGATIVE (NEGATIVE); METHADONE URINE SCREEN NEGATIVE (NEGATIVE); OPIATES URINE SCREEN NEGATIVE (NEGATIVE); PHENCYCLIDINE URINE SCREEN NEGATIVE (NEGATIVE)
[2017-06-12 05:44] VITALS: BP 143/93
== END 2017-06-12 06:46 | disposition home or self-care (01) ==
LOC: ER 17:35
DX: R51 Headache (principal); N39.0 Urinary tract infection, site not specified; I10 Essential (primary) hypertension; E11.9 Type 2 diabetes mellitus without complications; J45.909 Unspecified asthma, uncomplicated; F14.10 Cocaine abuse, uncomplicated; W19.XXXA Unspecified fall, initial encounter; Y93.89 Activity, other specified; Y92.89 Other specified places as the place of occurrence of the external cause; Y99.8 Other external cause status
CPT/HCPCS: 36415; 80053; 80305; 81001; 85025; 93005; 99285; G0482

== ENCOUNTER 2017-06-15 18:01 | Emergency (ER) | payer MEDICAID ==
[~2017-06-15] VITALS: Ht 162.6 cm; Wt 50.0 kg
[2017-06-15 23:32] LABS: CHLORIDE 105 mEq/L (98-107)
[2017-06-15 23:33] LABS: BASOPHILS % 0.3 % (0.0-2.0); EOSINOPHILS % 0.8 % (0.0-5.0); HEMATOCRIT. 35.5 % (36.0-48.0); HEMOGLOBIN. 11.7 g/dL (12.0-16.0); LYMPHOCYTES % 40.4 % (20.0-50.0); MEAN CORPUSCULAR HEMOGLOBIN 32.2 pg (28.0-32.0); MEAN CORPUSCULAR VOLUME 98.1 fL (81.0-99.0); MEAN PLATELET VOLUME 7.5 fl (7.4-10.4); NEUTROPHILS % 47.5 % (40.0-76.0); PLATELET 303 x1000/uL (130-400); RED BLOOD CELL COUNT 3.62 mill/uL (4.2-5.4)
[2017-06-15 23:41] LABS: CARBON DIOXIDE 29 mEq/L (21-32); ETHANOL BLOOD 123 mg/dL
[2017-06-16 00:11] LABS: CLARITY URINE CLEAR (CLEAR); COLOR URINE YELLOW (YELLOW); GLUCOSE URINE NEGATIVE (NEGATIVE); KETONES URINE NEGATIVE (NEGATIVE); LEUKOCYTE ESTERASE URINE 2+ (NEGATIVE); NITRITE URINE NEGATIVE (NEGATIVE); OCCULT BLOOD URINE NEGATIVE (NEGATIVE); PH URINE 5.5 (4.5-8.0); PROTEIN URINE NEGATIVE (NEGATIVE); SPECIFIC GRAVITY URINE 1.008 (1.005-1.030); UROBILINOGEN URINE 0.2 E.U./dL (0.2-1.0)
[2017-06-16 00:23] LABS: *AMPHETAMINES SCREEN URINE NEGATIVE (NEGATIVE); *BARBITURATES SCREEN URINE NEGATIVE (NEGATIVE); *BENZODIAZEPINES SCREEN URINE NEGATIVE (NEGATIVE); *COCAINE SCREEN URINE PRESUMTIVE POSITIVE (NEGATIVE); CANNABINOID URINE SCREEN NEGATIVE (NEGATIVE); METHADONE URINE SCREEN NEGATIVE (NEGATIVE); OPIATES URINE SCREEN NEGATIVE (NEGATIVE); PHENCYCLIDINE URINE SCREEN NEGATIVE (NEGATIVE)
[2017-06-16 06:35] VITALS: BP 147/68
== END 2017-06-16 07:35 | disposition home or self-care (01) ==
LOC: ER 18:08
DX: F14.10 Cocaine abuse, uncomplicated (principal); F10.129 Alcohol abuse with intoxication, unspecified; I10 Essential (primary) hypertension; E11.9 Type 2 diabetes mellitus without complications; J45.909 Unspecified asthma, uncomplicated
CPT/HCPCS: 36415; 80053; 80305; 81001; 85025; 99284; G0482

== ENCOUNTER 2017-06-17 01:06 | Emergency (ER) | payer MEDICAID ==
[~2017-06-17] VITALS: Ht 167.6 cm; Wt 64.0 kg
[2017-06-17 08:15] VITALS: BP 164/80
== END 2017-06-17 08:30 | disposition home or self-care (01) ==
LOC: ER 01:06
DX: R51 Headache (principal); I10 Essential (primary) hypertension; E11.9 Type 2 diabetes mellitus without complications; J45.909 Unspecified asthma, uncomplicated; F10.20 Alcohol dependence, uncomplicated; F14.10 Cocaine abuse, uncomplicated; W10.9XXA Fall (on) (from) unspecified stairs and steps, initial encounter; Y93.89 Activity, other specified; Y92.009 Unspecified place in unspecified non-institutional (private) residence as the place of occurrence of the external cause; Y99.8 Other external cause status
CPT/HCPCS: 70450; 99284; Z7610

== ENCOUNTER 2017-06-17 13:33 | Emergency (ER) | payer MEDICAID ==
[~2017-06-17] VITALS: Ht 167.6 cm; Wt 75.0 kg
[2017-06-17 13:41] VITALS: BP 110/60
== END 2017-06-17 16:43 | disposition home or self-care (01) ==
LOC: ER 13:41
DX: R51 Headache (principal); I10 Essential (primary) hypertension; E11.9 Type 2 diabetes mellitus without complications; J45.909 Unspecified asthma, uncomplicated; F10.20 Alcohol dependence, uncomplicated; F17.200 Nicotine dependence, unspecified, uncomplicated; F14.10 Cocaine abuse, uncomplicated; W19.XXXA Unspecified fall, initial encounter; Y93.89 Activity, other specified; Y92.89 Other specified places as the place of occurrence of the external cause; Y99.8 Other external cause status
CPT/HCPCS: 99283

== ENCOUNTER 2017-06-26 20:42 | Emergency (ER) | payer MEDICAID ==
[~2017-06-26] VITALS: Ht 167.6 cm; Wt 69.0 kg
[2017-06-26 21:23] VITALS: BP 146/82
== END 2017-06-26 21:57 | disposition home or self-care (01) ==
LOC: ER 21:53
DX: F10.129 Alcohol abuse with intoxication, unspecified (principal); I10 Essential (primary) hypertension; E11.9 Type 2 diabetes mellitus without complications; J45.909 Unspecified asthma, uncomplicated; F19.10 Other psychoactive substance abuse, uncomplicated; Y09 Assault by unspecified means
CPT/HCPCS: 99283

== ENCOUNTER 2017-06-27 01:12 | Emergency (ER) | payer MEDICAID ==
[~2017-06-27] VITALS: Ht 162.6 cm; Wt 69.0 kg
[2017-06-27 01:18] VITALS: BP 126/66
== END 2017-06-27 02:28 | disposition home or self-care (01) ==
LOC: ER 01:12
DX: Z09 Encounter for follow-up examination after completed treatment for conditions other than malignant neoplasm (principal)
CPT/HCPCS: 99283

== ENCOUNTER 2017-06-27 22:19 | Emergency (ER) | payer MEDICAID ==
[~2017-06-27] VITALS: Ht 162.6 cm; Wt 73.0 kg
[2017-06-28 08:38] VITALS: BP 126/88
== END 2017-06-28 08:39 | disposition home or self-care (01) ==
LOC: ER 22:19
DX: F10.229 Alcohol dependence with intoxication, unspecified (principal); Y90.9 Presence of alcohol in blood, level not specified
CPT/HCPCS: 99283; Z7610

== ENCOUNTER 2017-07-03 19:39 | Emergency (ER) | payer MEDICAID ==
[~2017-07-03] VITALS: Ht 167.6 cm; Wt 54.0 kg
[2017-07-03 19:44] VITALS: BP 127/77
== END 2017-07-03 21:00 | disposition left against medical advice (07) ==
LOC: ER 19:39
DX: R51 Headache (principal); Z53.21 Procedure and treatment not carried out due to patient leaving prior to being seen by health care provider

== ENCOUNTER 2017-07-04 20:20 | Emergency (ER) | payer MEDICAID ==
[~2017-07-04] VITALS: Ht 162.6 cm; Wt 59.0 kg
[2017-07-05] MEDS ORDERED: SODIUM CHLORIDE 0.9% 1,000 ML IV ONE (01:01)
[2017-07-05 01:33] LABS: BASOPHILS % 0.2 % (0.0-2.0); EOSINOPHILS % 0.3 % (0.0-5.0); HEMATOCRIT. 35.4 % (36.0-48.0); HEMOGLOBIN. 11.7 g/dL (12.0-16.0); LYMPHOCYTES % 19.8 % (20.0-50.0); MEAN CORPUSCULAR HEMOGLOBIN 32.2 pg (28.0-32.0); MEAN CORPUSCULAR VOLUME 97.1 fL (81.0-99.0); MEAN PLATELET VOLUME 7.5 fl (7.4-10.4); MONOCYTES % 7.2 % (2.0-8.0); NEUTROPHILS % 72.5 % (40.0-76.0); PLATELET 255 x1000/uL (130-400); RED BLOOD CELL COUNT 3.65 mill/uL (4.2-5.4); RED CELL DISTRIBUTION WIDTH 13.6 % (11.6-14.6)
[2017-07-05 01:42] LABS: CHLORIDE 105 mEq/L (98-107)
[2017-07-05 01:52] LABS: CARBON DIOXIDE 26 mEq/L (21-32)
[2017-07-05 01:58] LABS: ETHANOL BLOOD 302 mg/dL
[2017-07-05 09:54] VITALS: BP 150/78
== END 2017-07-05 13:00 | disposition home or self-care (01) ==
LOC: ER 20:29
DX: F10.129 Alcohol abuse with intoxication, unspecified (principal); D72.819 Decreased white blood cell count, unspecified; E11.9 Type 2 diabetes mellitus without complications; I10 Essential (primary) hypertension; J45.909 Unspecified asthma, uncomplicated; F17.210 Nicotine dependence, cigarettes, uncomplicated; Y90.8 Blood alcohol level of 240 mg/100 ml or more
CPT/HCPCS: 36415; 80053; 85025; 96360; 99284; G0482; J7030

== ENCOUNTER 2017-07-07 22:35 | Emergency (ER) | payer MEDICAID ==
[~2017-07-07] VITALS: Ht 167.6 cm; Wt 64.0 kg
[2017-07-08 09:32] VITALS: BP 133/71
[2017-07-08] MEDS ORDERED: ACETAMINOPHEN 325MG TABLET PO ONE (10:45)
== END 2017-07-08 11:12 | disposition home or self-care (01) ==
LOC: ER 22:46
DX: S09.8XXA Other specified injuries of head, initial encounter (principal); W01.0XXA Fall on same level from slipping, tripping and stumbling without subsequent striking against object, initial encounter; Y93.89 Activity, other specified; Y99.8 Other external cause status; Y92.000 Kitchen of unspecified non-institutional (private) residence as the place of occurrence of the external cause
CPT/HCPCS: 70450; 99284

== ENCOUNTER 2017-07-14 23:18 | Emergency (ER) | payer MEDICAID ==
[~2017-07-14] VITALS: Ht 162.6 cm; Wt 55.0 kg
[2017-07-15 09:40] LABS: *AMPHETAMINES SCREEN URINE NEGATIVE (NEGATIVE); *BARBITURATES SCREEN URINE NEGATIVE (NEGATIVE); *BENZODIAZEPINES SCREEN URINE NEGATIVE (NEGATIVE); *COCAINE SCREEN URINE NEGATIVE (NEGATIVE); CANNABINOID URINE SCREEN NEGATIVE (NEGATIVE); METHADONE URINE SCREEN NEGATIVE (NEGATIVE); OPIATES URINE SCREEN NEGATIVE (NEGATIVE); PHENCYCLIDINE URINE SCREEN NEGATIVE (NEGATIVE)
[2017-07-15 10:45] VITALS: BP 126/77
== END 2017-07-15 11:28 | disposition home or self-care (01) ==
LOC: ER 23:18
DX: F10.129 Alcohol abuse with intoxication, unspecified (principal); I10 Essential (primary) hypertension; J45.909 Unspecified asthma, uncomplicated; W01.0XXA Fall on same level from slipping, tripping and stumbling without subsequent striking against object, initial encounter; Y93.89 Activity, other specified; Y92.89 Other specified places as the place of occurrence of the external cause; Y99.8 Other external cause status
CPT/HCPCS: 36415; 70450; 80305; 99285; G0482

== ENCOUNTER 2017-07-15 19:55 | Emergency (ER) | payer MEDICAID ==
[~2017-07-15] VITALS: Ht 162.6 cm; Wt 56.0 kg
[2017-07-16 10:00] LABS: *AMPHETAMINES SCREEN URINE NEGATIVE (NEGATIVE); *BARBITURATES SCREEN URINE NEGATIVE (NEGATIVE); *BENZODIAZEPINES SCREEN URINE NEGATIVE (NEGATIVE); *COCAINE SCREEN URINE NEGATIVE (NEGATIVE); CANNABINOID URINE SCREEN NEGATIVE (NEGATIVE); METHADONE URINE SCREEN NEGATIVE (NEGATIVE); OPIATES URINE SCREEN NEGATIVE (NEGATIVE); PHENCYCLIDINE URINE SCREEN NEGATIVE (NEGATIVE)
[2017-07-16 10:04] VITALS: BP 127/77
== END 2017-07-16 10:13 | disposition home or self-care (01) ==
LOC: ER 20:26
DX: S09.90XA Unspecified injury of head, initial encounter (principal); F10.129 Alcohol abuse with intoxication, unspecified; I10 Essential (primary) hypertension; J45.909 Unspecified asthma, uncomplicated; W01.0XXA Fall on same level from slipping, tripping and stumbling without subsequent striking against object, initial encounter; Y93.01 Activity, walking, marching and hiking; Y92.89 Other specified places as the place of occurrence of the external cause; Y99.8 Other external cause status
CPT/HCPCS: 36415; 70450; 80305; 99285; G0482; Z7610

== ENCOUNTER 2017-07-17 00:28 | Emergency (ER) | payer MEDICAID ==
[~2017-07-17] VITALS: Ht 167.6 cm; Wt 50.0 kg
[2017-07-17 04:13] LABS: BASOPHILS % 0.4 % (0.0-2.0); EOSINOPHILS % 0.8 % (0.0-5.0); HEMATOCRIT. 36.1 % (36.0-48.0); HEMOGLOBIN. 11.8 g/dL (12.0-16.0); LYMPHOCYTES % 38.1 % (20.0-50.0); MEAN CORPUSCULAR HEMOGLOBIN 31.2 pg (28.0-32.0); MEAN CORPUSCULAR VOLUME 95.5 fL (81.0-99.0); MEAN PLATELET VOLUME 7.4 fl (7.4-10.4); MONOCYTES % 9.9 % (2.0-8.0); NEUTROPHILS % 50.8 % (40.0-76.0); PLATELET 247 x1000/uL (130-400); RED BLOOD CELL COUNT 3.78 mill/uL (4.2-5.4); RED CELL DISTRIBUTION WIDTH 13.6 % (11.6-14.6)
[2017-07-17 04:26] LABS: CARBON DIOXIDE 29 mEq/L (21-32); CHLORIDE 102 mEq/L (98-107); ETHANOL BLOOD 161 mg/dL
[2017-07-17 07:08] VITALS: BP 121/76
== END 2017-07-17 07:09 | disposition home or self-care (01) ==
LOC: ER 00:34
DX: S09.90XA Unspecified injury of head, initial encounter (principal); T51.0X1A Toxic effect of ethanol, accidental (unintentional), initial encounter; I10 Essential (primary) hypertension; F17.200 Nicotine dependence, unspecified, uncomplicated; W01.0XXA Fall on same level from slipping, tripping and stumbling without subsequent striking against object, initial encounter; Y93.89 Activity, other specified; Y92.89 Other specified places as the place of occurrence of the external cause; Y99.8 Other external cause status
CPT/HCPCS: 36415; 70450; 80053; 85025; 99285; G0482

== ENCOUNTER 2017-07-18 00:36 | Emergency (ER) | payer MEDICAID ==
[~2017-07-18] VITALS: Ht 167.6 cm; Wt 75.0 kg
[2017-07-18 10:28] LABS: BASOPHILS % 0.2 % (0.0-2.0); EOSINOPHILS % 0.5 % (0.0-5.0); HEMATOCRIT. 37.3 % (36.0-48.0); HEMOGLOBIN. 12.4 g/dL (12.0-16.0); LYMPHOCYTES % 23.2 % (20.0-50.0); MEAN CORPUSCULAR HEMOGLOBIN 31.3 pg (28.0-32.0); MEAN CORPUSCULAR VOLUME 94.2 fL (81.0-99.0); MEAN PLATELET VOLUME 7.5 fl (7.4-10.4); MONOCYTES % 11.3 % (2.0-8.0); NEUTROPHILS % 64.8 % (40.0-76.0); PLATELET 248 x1000/uL (130-400); RED BLOOD CELL COUNT 3.96 mill/uL (4.2-5.4); RED CELL DISTRIBUTION WIDTH 13.5 % (11.6-14.6)
[2017-07-18 10:32] LABS: CHLORIDE 104 mEq/L (98-107)
[2017-07-18 10:37] LABS: CARBON DIOXIDE 29 mEq/L (21-32); ETHANOL BLOOD 18 mg/dL
[2017-07-18 11:35] VITALS: BP 121/64
== END 2017-07-18 12:09 | disposition home or self-care (01) ==
LOC: ER 00:36
DX: F10.229 Alcohol dependence with intoxication, unspecified (principal); R51 Headache; I10 Essential (primary) hypertension; F17.200 Nicotine dependence, unspecified, uncomplicated
CPT/HCPCS: 36415; 80048; 85025; 99284; G0482

== ENCOUNTER 2017-07-24 17:21 | Emergency (ER) | payer MEDICAID ==
[~2017-07-24] VITALS: Ht 165.1 cm; Wt 64.0 kg
[2017-07-24 17:27] VITALS: BP 116/89
== END 2017-07-24 22:09 | disposition left against medical advice (07) ==
LOC: ER 17:21
DX: R51 Headache (principal); Z53.21 Procedure and treatment not carried out due to patient leaving prior to being seen by health care provider

== ENCOUNTER 2017-07-25 01:16 | Emergency (ER) | payer MEDICAID ==
[~2017-07-25] VITALS: Ht 162.6 cm; Wt 50.0 kg
[2017-07-25 02:17] VITALS: BP 142/71
== END 2017-07-25 09:49 | disposition left against medical advice (07) ==
LOC: ER 01:16
DX: R52 Pain, unspecified (principal); Z53.21 Procedure and treatment not carried out due to patient leaving prior to being seen by health care provider

== ENCOUNTER 2017-08-05 19:06 | Emergency (ER) | payer MEDICAID ==
[~2017-08-05] VITALS: Ht 162.6 cm; Wt 60.0 kg
[2017-08-06] MEDS ORDERED: ACETAMINOPHEN 325MG TABLET PO STA (06:32)
[2017-08-06] MEDS ORDERED: SODIUM CHLORIDE 0.9% 1,000 ML IV ONE (06:32)
[2017-08-06 07:15] LABS: BASOPHILS % 0.2 % (0.0-2.0); EOSINOPHILS % 0.4 % (0.0-5.0); HEMATOCRIT. 36.8 % (36.0-48.0); HEMOGLOBIN. 12.8 g/dL (12.0-16.0); LYMPHOCYTES % 29.7 % (20.0-50.0); MEAN CORPUSCULAR HEMOGLOBIN 32.5 pg (28.0-32.0); MEAN CORPUSCULAR VOLUME 93.5 fL (81.0-99.0); MEAN PLATELET VOLUME 7.7 fl (7.4-10.4); MONOCYTES % 10.8 % (2.0-8.0); NEUTROPHILS % 58.9 % (40.0-76.0); PLATELET 317 x1000/uL (130-400); RED BLOOD CELL COUNT 3.94 mill/uL (4.2-5.4); RED CELL DISTRIBUTION WIDTH 14.1 % (11.6-14.6)
[2017-08-06 07:34] LABS: CHLORIDE 106 mEq/L (98-107)
[2017-08-06 07:38] LABS: AMMONIA 26 uMol/L (<32)
[2017-08-06 07:44] LABS: CARBON DIOXIDE 25 mEq/L (21-32); ETHANOL BLOOD < 10 mg/dL
[2017-08-06 08:03] LABS: HCG SCREEN NEGATIVE
[2017-08-06 08:17] LABS: CLARITY URINE TURBID (CLEAR); COLOR URINE YELLOW (YELLOW); KETONES URINE NEGATIVE (NEGATIVE); LEUKOCYTE ESTERASE URINE 3+ (NEGATIVE); NITRITE URINE POSITIVE (NEGATIVE); OCCULT BLOOD URINE 1+ (NEGATIVE); PROTEIN URINE TRACE (NEGATIVE); SPECIFIC GRAVITY URINE 1.017 (1.005-1.030); UROBILINOGEN URINE 0.2 E.U./dL (0.2-1.0)
[2017-08-06 09:30] VITALS: BP 140/75
[2017-08-06] MEDS ORDERED: CEFTRIAXONE 1 G PREMIX 50 ML IV ONE (09:30)
[2017-08-06 09:31] LABS: *AMPHETAMINES SCREEN URINE NEGATIVE (NEGATIVE); *BARBITURATES SCREEN URINE NEGATIVE (NEGATIVE); *BENZODIAZEPINES SCREEN URINE NEGATIVE (NEGATIVE); *COCAINE SCREEN URINE NEGATIVE (NEGATIVE); CANNABINOID URINE SCREEN NEGATIVE (NEGATIVE); METHADONE URINE SCREEN NEGATIVE (NEGATIVE); PHENCYCLIDINE URINE SCREEN NEGATIVE (NEGATIVE)
[2017-08-06 09:32] LABS: OPIATES URINE SCREEN NEGATIVE (NEGATIVE)
== END 2017-08-06 13:08 | disposition home or self-care (01) ==
LOC: ER 19:47
DX: R51 Headache (principal); F10.229 Alcohol dependence with intoxication, unspecified; I10 Essential (primary) hypertension; W01.0XXA Fall on same level from slipping, tripping and stumbling without subsequent striking against object, initial encounter; Y93.89 Activity, other specified; Y92.89 Other specified places as the place of occurrence of the external cause; Y99.8 Other external cause status; Y90.0 Blood alcohol level of less than 20 mg/100 ml
CPT/HCPCS: 36415; 70450; 72125; 80053; 80305; 80307; 80329; 81001; 82140; 84703; 85025; 87086; 96361; 96365; 99285; G0482; J0696; J7040; Z7610; J7030

== ENCOUNTER 2017-08-07 19:38 | Emergency (ER) | payer MEDICAID ==
[~2017-08-07] VITALS: Ht 165.1 cm; Wt 57.0 kg
[2017-08-08] MEDS ORDERED: ACETAMINOPHEN 500MG TABLET PO ONE (06:30)
[2017-08-08] MEDS ORDERED: IBUPROFEN 400MG TABLET PO ONE (06:30)
[2017-08-08 06:51] VITALS: BP 118/74
[2017-08-08 06:59] LABS: BASOPHILS % 0.4 % (0.0-2.0); EOSINOPHILS % 0.8 % (0.0-5.0); HEMATOCRIT. 36.8 % (36.0-48.0); HEMOGLOBIN. 12.5 g/dL (12.0-16.0); LYMPHOCYTES % 27.4 % (20.0-50.0); MEAN CORPUSCULAR HEMOGLOBIN 31.6 pg (28.0-32.0); MEAN CORPUSCULAR VOLUME 93.6 fL (81.0-99.0); MEAN PLATELET VOLUME 7.4 fl (7.4-10.4); MONOCYTES % 9.3 % (2.0-8.0); NEUTROPHILS % 62.1 % (40.0-76.0); PLATELET 307 x1000/uL (130-400); RED BLOOD CELL COUNT 3.94 mill/uL (4.2-5.4); RED CELL DISTRIBUTION WIDTH 13.8 % (11.6-14.6)
[2017-08-08 07:06] LABS: CHLORIDE 107 mEq/L (98-107)
[2017-08-08 07:11] LABS: CARBON DIOXIDE 28 mEq/L (21-32); ETHANOL BLOOD 45 mg/dL
[2017-08-08 08:18] LABS: CLARITY URINE CLEAR (CLEAR); COLOR URINE YELLOW (YELLOW); KETONES URINE NEGATIVE (NEGATIVE); LEUKOCYTE ESTERASE URINE 1+ (NEGATIVE); NITRITE URINE NEGATIVE (NEGATIVE); OCCULT BLOOD URINE NEGATIVE (NEGATIVE); PROTEIN URINE NEGATIVE (NEGATIVE); SPECIFIC GRAVITY URINE 1.014 (1.005-1.030); UROBILINOGEN URINE 0.2 E.U./dL (0.2-1.0)
[2017-08-08 08:50] LABS: *AMPHETAMINES SCREEN URINE NEGATIVE (NEGATIVE); *BARBITURATES SCREEN URINE NEGATIVE (NEGATIVE); *BENZODIAZEPINES SCREEN URINE NEGATIVE (NEGATIVE); *COCAINE SCREEN URINE NEGATIVE (NEGATIVE); CANNABINOID URINE SCREEN NEGATIVE (NEGATIVE); METHADONE URINE SCREEN NEGATIVE (NEGATIVE); OPIATES URINE SCREEN NEGATIVE (NEGATIVE); PHENCYCLIDINE URINE SCREEN NEGATIVE (NEGATIVE)
[2017-08-08] MEDS ORDERED: NITROFURANTOIN 100MG M/M CAPSULE PO ONE (09:00)
== END 2017-08-08 09:29 | disposition home or self-care (01) ==
LOC: ER 19:38
DX: S50.01XA Contusion of right elbow, initial encounter (principal); S80.01XA Contusion of right knee, initial encounter; S09.90XA Unspecified injury of head, initial encounter; N39.0 Urinary tract infection, site not specified; F10.229 Alcohol dependence with intoxication, unspecified; I10 Essential (primary) hypertension; F17.200 Nicotine dependence, unspecified, uncomplicated; W10.9XXA Fall (on) (from) unspecified stairs and steps, initial encounter; Y93.89 Activity, other specified; Y92.89 Other specified places as the place of occurrence of the external cause; Y99.8 Other external cause status
CPT/HCPCS: 36415; 70450; 72125; 73080; 73562; 80048; 80305; 81001; 82962; 85025; 87086; 99285; G0482

== ENCOUNTER 2017-08-10 20:13 | Emergency (ER) | payer MEDICAID ==
[~2017-08-10] VITALS: Ht 162.6 cm; Wt 63.0 kg
[2017-08-11 08:49] VITALS: BP 159/94
== END 2017-08-11 09:26 | disposition home or self-care (01) ==
LOC: ER 20:30
DX: S09.8XXA Other specified injuries of head, initial encounter (principal); F10.129 Alcohol abuse with intoxication, unspecified; I10 Essential (primary) hypertension; E11.9 Type 2 diabetes mellitus without complications; J45.909 Unspecified asthma, uncomplicated; F17.200 Nicotine dependence, unspecified, uncomplicated; Y04.0XXA Assault by unarmed brawl or fight, initial encounter; Y93.89 Activity, other specified; Y92.89 Other specified places as the place of occurrence of the external cause; Y99.8 Other external cause status
CPT/HCPCS: 70450; 99284

== ENCOUNTER 2017-08-11 18:20 | Emergency (ER) | payer MEDICAID ==
[~2017-08-11] VITALS: Ht 162.6 cm; Wt 64.0 kg
[2017-08-12 03:07] LABS: BASOPHILS % 0.8 % (0.0-2.0); EOSINOPHILS % 1.1 % (0.0-5.0); HEMATOCRIT. 34.8 % (36.0-48.0); HEMOGLOBIN. 11.8 g/dL (12.0-16.0); LYMPHOCYTES % 37.1 % (20.0-50.0); MEAN CORPUSCULAR HEMOGLOBIN 31.9 pg (28.0-32.0); MEAN CORPUSCULAR VOLUME 94.1 fL (81.0-99.0); MEAN PLATELET VOLUME 7.9 fl (7.4-10.4); MONOCYTES % 12.4 % (2.0-8.0); NEUTROPHILS % 48.6 % (40.0-76.0); PLATELET 237 x1000/uL (130-400); RED CELL DISTRIBUTION WIDTH 14.1 % (11.6-14.6)
[2017-08-12 03:19] LABS: CHLORIDE 106 mEq/L (98-107); ETHANOL BLOOD 14 mg/dL
[2017-08-12 03:34] LABS: *AMPHETAMINES SCREEN URINE NEGATIVE (NEGATIVE); *BENZODIAZEPINES SCREEN URINE NEGATIVE (NEGATIVE); METHADONE URINE SCREEN NEGATIVE (NEGATIVE); PHENCYCLIDINE URINE SCREEN NEGATIVE (NEGATIVE)
[2017-08-12 04:31] LABS: *BARBITURATES SCREEN URINE NEGATIVE (NEGATIVE); *COCAINE SCREEN URINE NEGATIVE (NEGATIVE); CANNABINOID URINE SCREEN NEGATIVE (NEGATIVE); OPIATES URINE SCREEN NEGATIVE (NEGATIVE)
[2017-08-12 05:46] VITALS: BP 123/82
== END 2017-08-12 05:45 | disposition home or self-care (01) ==
LOC: ER 18:26
DX: S50.01XA Contusion of right elbow, initial encounter (principal); S20.211A Contusion of right front wall of thorax, initial encounter; F17.200 Nicotine dependence, unspecified, uncomplicated; F10.229 Alcohol dependence with intoxication, unspecified; J44.9 Chronic obstructive pulmonary disease, unspecified; I10 Essential (primary) hypertension; E11.9 Type 2 diabetes mellitus without complications; Y90.0 Blood alcohol level of less than 20 mg/100 ml; W10.9XXA Fall (on) (from) unspecified stairs and steps, initial encounter; Y93.89 Activity, other specified; Y99.8 Other external cause status; Y92.89 Other specified places as the place of occurrence of the external cause
CPT/HCPCS: 36415; 71101; 73070; 80048; 80305; 80307; 80329; 85025; 99285; G0482

== ENCOUNTER 2017-08-12 17:36 | Emergency (ER) | payer MEDICAID ==
[~2017-08-12] VITALS: Ht 165.1 cm; Wt 63.0 kg
[2017-08-12] MEDS ORDERED: ACETAMINOPHEN 325MG TABLET PO ONE (21:00)
[2017-08-12 21:19] LABS: CLARITY URINE CLEAR (CLEAR); COLOR URINE YELLOW (YELLOW); KETONES URINE NEGATIVE (NEGATIVE); LEUKOCYTE ESTERASE URINE NEGATIVE (NEGATIVE); NITRITE URINE NEGATIVE (NEGATIVE); OCCULT BLOOD URINE NEGATIVE (NEGATIVE); PROTEIN URINE NEGATIVE (NEGATIVE); SPECIFIC GRAVITY URINE 1.014 (1.005-1.030); UROBILINOGEN URINE 0.2 E.U./dL (0.2-1.0)
[2017-08-12 22:05] VITALS: BP 120/76
== END 2017-08-12 22:05 | disposition home or self-care (01) ==
LOC: ER 17:36
DX: S22.31XA Fracture of one rib, right side, initial encounter for closed fracture (principal); J44.9 Chronic obstructive pulmonary disease, unspecified; I10 Essential (primary) hypertension; F10.20 Alcohol dependence, uncomplicated; E11.9 Type 2 diabetes mellitus without complications; F17.200 Nicotine dependence, unspecified, uncomplicated; W18.30XA Fall on same level, unspecified, initial encounter; Y93.89 Activity, other specified; Y99.8 Other external cause status; Y92.89 Other specified places as the place of occurrence of the external cause
CPT/HCPCS: 99283

== ENCOUNTER 2017-08-13 01:36 | Emergency (ER) | payer MEDICAID ==
[~2017-08-13] VITALS: Ht 162.6 cm; Wt 60.0 kg
[2017-08-13] MEDS ORDERED: ACETAMINOPHEN 325MG TABLET PO ONE (05:30)
[2017-08-13] MEDS ORDERED: IBUPROFEN 400MG TABLET PO ONE (08:15)
[2017-08-13 08:37] VITALS: BP 112/68
== END 2017-08-13 08:45 | disposition home or self-care (01) ==
LOC: ER 01:36
DX: M25.559 Pain in unspecified hip (principal); F17.200 Nicotine dependence, unspecified, uncomplicated; I10 Essential (primary) hypertension; W10.9XXA Fall (on) (from) unspecified stairs and steps, initial encounter; Y93.89 Activity, other specified; Y99.8 Other external cause status; Y92.89 Other specified places as the place of occurrence of the external cause
CPT/HCPCS: 72170; 99283; X7700

== ENCOUNTER 2017-08-13 20:16 | Emergency (ER) | payer MEDICAID ==
[~2017-08-13] VITALS: Ht 165.1 cm; Wt 57.0 kg
[2017-08-14 00:37] LABS: BASOPHILS % 0.3 % (0.0-2.0); EOSINOPHILS % 1.1 % (0.0-5.0); HEMATOCRIT. 35.7 % (36.0-48.0); HEMOGLOBIN. 11.9 g/dL (12.0-16.0); LYMPHOCYTES % 42.1 % (20.0-50.0); MEAN CORPUSCULAR HEMOGLOBIN 31.4 pg (28.0-32.0); MEAN PLATELET VOLUME 7.8 fl (7.4-10.4); MONOCYTES % 9.7 % (2.0-8.0); NEUTROPHILS % 46.8 % (40.0-76.0); PLATELET 271 x1000/uL (130-400); RED CELL DISTRIBUTION WIDTH 13.9 % (11.6-14.6)
[2017-08-14 00:41] LABS: CHLORIDE 105 mEq/L (98-107)
[2017-08-14 00:45] LABS: AMMONIA 36 uMol/L (<32)
[2017-08-14 00:51] LABS: CARBON DIOXIDE 26 mEq/L (21-32); ETHANOL BLOOD 116 mg/dL
[2017-08-14 09:30] VITALS: BP 140/70
== END 2017-08-14 10:15 | disposition home or self-care (01) ==
LOC: ER 21:58
DX: S50.00XA Contusion of unspecified elbow, initial encounter (principal); E11.9 Type 2 diabetes mellitus without complications; I10 Essential (primary) hypertension; J45.909 Unspecified asthma, uncomplicated; R51 Headache; M25.561 Pain in right knee; F10.10 Alcohol abuse, uncomplicated; W10.8XXA Fall (on) (from) other stairs and steps, initial encounter; Y93.89 Activity, other specified; Y99.8 Other external cause status; Y92.89 Other specified places as the place of occurrence of the external cause
CPT/HCPCS: 36415; 70450; 80053; 80307; 80329; 82140; 83690; 85025; 85610; 93005; 99285; G0482

== ENCOUNTER 2017-08-14 19:59 | Emergency (ER) | payer MEDICAID ==
[~2017-08-14] VITALS: Ht 170.2 cm; Wt 59.0 kg
[2017-08-15 03:27] VITALS: BP 161/71
== END 2017-08-15 09:00 | disposition left against medical advice (07) ==
LOC: ER 20:13
DX: Z53.21 Procedure and treatment not carried out due to patient leaving prior to being seen by health care provider (principal)

== ENCOUNTER 2017-08-16 01:21 | Emergency (ER) | payer MEDICAID ==
[~2017-08-16] VITALS: Ht 167.6 cm; Wt 65.0 kg
[2017-08-16 07:28] VITALS: BP 133/89
== END 2017-08-16 08:10 | disposition home or self-care (01) ==
LOC: ER 01:21
DX: R51 Headache (principal); F10.20 Alcohol dependence, uncomplicated; Y90.9 Presence of alcohol in blood, level not specified; F17.210 Nicotine dependence, cigarettes, uncomplicated; W01.0XXA Fall on same level from slipping, tripping and stumbling without subsequent striking against object, initial encounter; Y93.89 Activity, other specified; Y92.89 Other specified places as the place of occurrence of the external cause
CPT/HCPCS: 99283

== ENCOUNTER 2017-08-18 02:41 | Emergency (ER) | payer MEDICAID ==
[~2017-08-18] VITALS: Ht 157.5 cm; Wt 63.0 kg
[2017-08-18 08:45] VITALS: BP 116/62
== END 2017-08-18 08:48 | disposition home or self-care (01) ==
LOC: ER 02:41
DX: M25.551 Pain in right hip (principal); F10.129 Alcohol abuse with intoxication, unspecified; E11.9 Type 2 diabetes mellitus without complications; I10 Essential (primary) hypertension; W01.0XXA Fall on same level from slipping, tripping and stumbling without subsequent striking against object, initial encounter; Y93.89 Activity, other specified; Y92.000 Kitchen of unspecified non-institutional (private) residence as the place of occurrence of the external cause; Y99.8 Other external cause status
CPT/HCPCS: 99283

== ENCOUNTER 2017-08-20 18:54 | Emergency (ER) | payer MEDICAID ==
[~2017-08-20] VITALS: Ht 162.6 cm; Wt 61.0 kg
[2017-08-20 18:56] VITALS: BP 124/78
== END 2017-08-21 00:59 | disposition left against medical advice (07) ==
LOC: ER 19:11
DX: R51 Headache (principal); Z53.21 Procedure and treatment not carried out due to patient leaving prior to being seen by health care provider

== ENCOUNTER 2017-08-21 02:22 | Emergency (ER) | payer MEDICAID ==
[~2017-08-21] VITALS: Ht 160 cm; Wt 59.0 kg
[2017-08-21] MEDS ORDERED: IBUPROFEN 600MG TABLET PO ONE (08:00)
[2017-08-21 08:35] VITALS: BP 145/79
== END 2017-08-21 08:54 | disposition home or self-care (01) ==
LOC: ER 02:22
DX: R07.81 Pleurodynia (principal); J44.9 Chronic obstructive pulmonary disease, unspecified; W01.0XXA Fall on same level from slipping, tripping and stumbling without subsequent striking against object, initial encounter; Y92.000 Kitchen of unspecified non-institutional (private) residence as the place of occurrence of the external cause
CPT/HCPCS: 71045; 99283

== ENCOUNTER 2017-08-26 00:19 | Emergency (ER) | payer MEDICAID ==
[~2017-08-26] VITALS: Ht 157.5 cm; Wt 59.0 kg
[2017-08-26 00:21] VITALS: BP 163/91
== END 2017-08-26 10:36 | disposition left against medical advice (07) ==
LOC: ER 00:19
DX: Z53.21 Procedure and treatment not carried out due to patient leaving prior to being seen by health care provider (principal)

== ENCOUNTER 2017-08-27 00:11 | Emergency (ER) | payer MEDICAID ==
[~2017-08-27] VITALS: Ht 167.6 cm; Wt 70.0 kg
[2017-08-27] MEDS ORDERED: SODIUM CHLORIDE 0.9% 1,000 ML IV ONE (07:15)
[2017-08-27] MEDS ORDERED: ONDANSETRON HCL 4MG/2ML VIAL IV STA (07:15)
[2017-08-27 07:30] LABS: BASOPHILS % 0.3 % (0.0-2.0); EOSINOPHILS % 0.8 % (0.0-5.0); HEMOGLOBIN. 11.4 g/dL (12.0-16.0); LYMPHOCYTES % 34.7 % (20.0-50.0); MEAN CORPUSCULAR HEMOGLOBIN 31.4 pg (28.0-32.0); MEAN CORPUSCULAR VOLUME 93.4 fL (81.0-99.0); MEAN PLATELET VOLUME 7.3 fl (7.4-10.4); MONOCYTES % 12.4 % (2.0-8.0); NEUTROPHILS % 51.8 % (40.0-76.0); PLATELET 277 x1000/uL (130-400); RED BLOOD CELL COUNT 3.64 mill/uL (4.2-5.4); RED CELL DISTRIBUTION WIDTH 14.3 % (11.6-14.6)
[2017-08-27 07:35] LABS: CHLORIDE 105 mEq/L (98-107)
[2017-08-27 07:36] LABS: PROTHROMBIN TIME 10.1 sec (9.4-11.6)
[2017-08-27 07:43] LABS: ETHANOL BLOOD 15 mg/dL
[2017-08-27] MEDS ORDERED: ONDANSETRON 4MG ODT PO ONE (08:45)
[2017-08-27 09:47] VITALS: BP 151/86
== END 2017-08-27 10:15 | disposition home or self-care (01) ==
LOC: ER 00:11
DX: S09.90XA Unspecified injury of head, initial encounter (principal); I10 Essential (primary) hypertension; E11.9 Type 2 diabetes mellitus without complications; J45.909 Unspecified asthma, uncomplicated; F10.20 Alcohol dependence, uncomplicated; W18.30XA Fall on same level, unspecified, initial encounter; Y93.89 Activity, other specified; Y92.410 Unspecified street and highway as the place of occurrence of the external cause; Y99.8 Other external cause status
CPT/HCPCS: 36415; 70450; 80053; 85025; 85610; 96361; 96374; 99285; G0482; J2405; J7030; Q0162; Z7610

== ENCOUNTER 2017-08-29 23:27 | Emergency (ER) | payer MEDICAID ==
[~2017-08-29] VITALS: Ht 165.1 cm; Wt 54.0 kg
[2017-08-29 23:32] VITALS: BP 140/80
== END 2017-08-30 02:30 | disposition left against medical advice (07) ==
LOC: ER 23:27
DX: S00.83XA Contusion of other part of head, initial encounter (principal); F10.129 Alcohol abuse with intoxication, unspecified; E11.9 Type 2 diabetes mellitus without complications; I10 Essential (primary) hypertension; J45.909 Unspecified asthma, uncomplicated; Y90.9 Presence of alcohol in blood, level not specified; Y08.89XA Assault by other specified means, initial encounter; Y93.89 Activity, other specified; Y92.488 Other paved roadways as the place of occurrence of the external cause
CPT/HCPCS: 99283

== ENCOUNTER 2017-09-02 20:55 | Emergency (ER) | payer MEDICAID ==
[~2017-09-02] VITALS: Ht 160 cm; Wt 66.0 kg
[2017-09-03] MEDS ORDERED: SODIUM CHLORIDE 0.9% 1,000 ML IV ONE (02:49)
[2017-09-03 03:14] LABS: BASOPHILS % 0.2 % (0.0-2.0); EOSINOPHILS % 0.7 % (0.0-5.0); HEMATOCRIT. 34.7 % (36.0-48.0); HEMOGLOBIN. 11.8 g/dL (12.0-16.0); LYMPHOCYTES % 24.6 % (20.0-50.0); MEAN CORPUSCULAR HEMOGLOBIN 32.1 pg (28.0-32.0); MEAN CORPUSCULAR VOLUME 94.1 fL (81.0-99.0); MEAN PLATELET VOLUME 7.5 fl (7.4-10.4); MONOCYTES % 10.4 % (2.0-8.0); NEUTROPHILS % 64.1 % (40.0-76.0); PLATELET 220 x1000/uL (130-400); RED BLOOD CELL COUNT 3.69 mill/uL (4.2-5.4); RED CELL DISTRIBUTION WIDTH 14.8 % (11.6-14.6)
[2017-09-03 03:35] LABS: CHLORIDE 103 mEq/L (98-107); ETHANOL BLOOD 105 mg/dL
[2017-09-03] MEDS ORDERED: IBUPROFEN 600MG TABLET PO ONE (06:00)
[2017-09-03 09:06] LABS: CLARITY URINE CLEAR (CLEAR); COLOR URINE YELLOW (YELLOW); KETONES URINE NEGATIVE (NEGATIVE); LEUKOCYTE ESTERASE URINE NEGATIVE (NEGATIVE); NITRITE URINE NEGATIVE (NEGATIVE); OCCULT BLOOD URINE NEGATIVE (NEGATIVE); PROTEIN URINE NEGATIVE (NEGATIVE); SPECIFIC GRAVITY URINE 1.007 (1.005-1.030); UROBILINOGEN URINE 0.2 E.U./dL (0.2-1.0)
[2017-09-03 09:40] LABS: *AMPHETAMINES SCREEN URINE NEGATIVE (NEGATIVE); *BARBITURATES SCREEN URINE NEGATIVE (NEGATIVE); *BENZODIAZEPINES SCREEN URINE NEGATIVE (NEGATIVE); *COCAINE SCREEN URINE NEGATIVE (NEGATIVE); CANNABINOID URINE SCREEN NEGATIVE (NEGATIVE); METHADONE URINE SCREEN NEGATIVE (NEGATIVE); OPIATES URINE SCREEN NEGATIVE (NEGATIVE); PHENCYCLIDINE URINE SCREEN NEGATIVE (NEGATIVE)
[2017-09-03 10:16] VITALS: BP 158/86
== END 2017-09-03 10:00 | disposition home or self-care (01) ==
LOC: ER 21:10
DX: F10.229 Alcohol dependence with intoxication, unspecified (principal); Y90.5 Blood alcohol level of 100-119 mg/100 ml
CPT/HCPCS: 36415; 80053; 80305; 81003; 85025; 96360; 96361; 99285; G0482; J7030

== ENCOUNTER 2017-09-03 21:40 | Emergency (ER) | payer MEDICAID ==
[~2017-09-03] VITALS: Ht 162.6 cm; Wt 61.0 kg
[2017-09-03] MEDS ORDERED: ACETAMINOPHEN 325MG TABLET PO ONE (23:15)
[2017-09-04 00:36] LABS: BASOPHILS % 0.1 % (0.0-2.0); EOSINOPHILS % 0.5 % (0.0-5.0); HEMATOCRIT. 36.4 % (36.0-48.0); HEMOGLOBIN. 12.1 g/dL (12.0-16.0); LYMPHOCYTES % 34.7 % (20.0-50.0); MEAN CORPUSCULAR HEMOGLOBIN 31.9 pg (28.0-32.0); MEAN CORPUSCULAR VOLUME 95.7 fL (81.0-99.0); MEAN PLATELET VOLUME 7.6 fl (7.4-10.4); MONOCYTES % 7.6 % (2.0-8.0); NEUTROPHILS % 57.1 % (40.0-76.0); PLATELET 230 x1000/uL (130-400); RED BLOOD CELL COUNT 3.81 mill/uL (4.2-5.4); RED CELL DISTRIBUTION WIDTH 14.7 % (11.6-14.6)
[2017-09-04 00:41] LABS: CHLORIDE 102 mEq/L (98-107)
[2017-09-04 00:52] LABS: ETHANOL BLOOD 180 mg/dL
[2017-09-04 06:20] VITALS: BP 131/62
== END 2017-09-04 06:28 | disposition home or self-care (01) ==
LOC: ER 21:40
DX: S09.8XXA Other specified injuries of head, initial encounter (principal); F17.200 Nicotine dependence, unspecified, uncomplicated; Y08.89XA Assault by other specified means, initial encounter; Y93.89 Activity, other specified; Y92.89 Other specified places as the place of occurrence of the external cause; Y99.8 Other external cause status
CPT/HCPCS: 36415; 80048; 85025; 99284; G0482

== ENCOUNTER 2017-10-12 22:46 | Emergency (ER) | payer MEDICAID ==
[~2017-10-12] VITALS: Ht 162.6 cm; Wt 66.0 kg
[2017-10-13] MEDS ORDERED: SODIUM CHLORIDE 0.9% 1,000 ML IV ONE (04:52)
[2017-10-13 05:23] LABS: BASOPHILS % 0.3 % (0.0-2.0); EOSINOPHILS % 0.7 % (0.0-5.0); HEMATOCRIT. 34.3 % (36.0-48.0); HEMOGLOBIN. 11.7 g/dL (12.0-16.0); LYMPHOCYTES % 26.3 % (20.0-50.0); MEAN CORPUSCULAR HEMOGLOBIN 31.4 pg (28.0-32.0); MEAN CORPUSCULAR VOLUME 92.4 fL (81.0-99.0); MEAN PLATELET VOLUME 7.8 fl (7.4-10.4); MONOCYTES % 11.6 % (2.0-8.0); NEUTROPHILS % 61.1 % (40.0-76.0); PLATELET 273 x1000/uL (130-400); RED BLOOD CELL COUNT 3.71 mill/uL (4.2-5.4); RED CELL DISTRIBUTION WIDTH 14.7 % (11.6-14.6)
[2017-10-13 05:33] LABS: CHLORIDE 105 mEq/L (98-107); ETHANOL BLOOD 48 mg/dL
[2017-10-13 12:11] VITALS: BP 163/74
== END 2017-10-13 13:07 | disposition home or self-care (01) ==
LOC: ER 22:59
DX: R51 Headache (principal); F10.229 Alcohol dependence with intoxication, unspecified; I10 Essential (primary) hypertension; J44.9 Chronic obstructive pulmonary disease, unspecified; E11.9 Type 2 diabetes mellitus without complications; F17.200 Nicotine dependence, unspecified, uncomplicated; Y90.2 Blood alcohol level of 40-59 mg/100 ml
CPT/HCPCS: 36415; 80048; 85025; 96360; 96361; 99285; G0482; J7030

== ENCOUNTER 2017-10-13 21:00 | Emergency (ER) | payer MEDICAID ==
[~2017-10-13] VITALS: Ht 172.7 cm; Wt 73.0 kg
[2017-10-13 21:05] VITALS: BP 118/69
== END 2017-10-14 07:13 | disposition left against medical advice (07) ==
LOC: ER 21:22
DX: M79.1 Myalgia (principal); Z53.21 Procedure and treatment not carried out due to patient leaving prior to being seen by health care provider

== ENCOUNTER 2017-10-14 21:25 | Emergency (ER) | payer MEDICAID ==
[~2017-10-14] VITALS: Ht 165.1 cm; Wt 56.0 kg
[2017-10-14 21:35] VITALS: BP 126/86
[2017-10-15 00:31] LABS: ETHANOL BLOOD 88 mg/dL
== END 2017-10-14 23:00 | disposition home or self-care (01) ==
LOC: ER 21:31
DX: F10.20 Alcohol dependence, uncomplicated (principal); I10 Essential (primary) hypertension; E11.9 Type 2 diabetes mellitus without complications; J44.9 Chronic obstructive pulmonary disease, unspecified; W19.XXXA Unspecified fall, initial encounter; Y93.89 Activity, other specified; Y99.8 Other external cause status; Y92.89 Other specified places as the place of occurrence of the external cause
CPT/HCPCS: 36415; 82947; 99284

== ENCOUNTER 2017-10-15 01:12 | Emergency (ER) | payer MEDICAID ==
[~2017-10-15] VITALS: Ht 154.9 cm; Wt 60.0 kg
[2017-10-15 07:21] VITALS: BP 138/79
== END 2017-10-15 07:22 | disposition home or self-care (01) ==
LOC: ER 01:12
DX: F10.10 Alcohol abuse, uncomplicated (principal); F17.200 Nicotine dependence, unspecified, uncomplicated; W18.30XA Fall on same level, unspecified, initial encounter; Y93.01 Activity, walking, marching and hiking; Y92.000 Kitchen of unspecified non-institutional (private) residence as the place of occurrence of the external cause; Y99.8 Other external cause status
CPT/HCPCS: 99283

== ENCOUNTER 2017-10-17 01:44 | Emergency (ER) | payer MEDICAID ==
[~2017-10-17] VITALS: Ht 162.6 cm; Wt 68.0 kg
[2017-10-17 11:43] VITALS: BP 161/88
== END 2017-10-17 11:49 | disposition home or self-care (01) ==
LOC: ER 01:44
DX: S09.8XXA Other specified injuries of head, initial encounter (principal); F10.229 Alcohol dependence with intoxication, unspecified; F17.200 Nicotine dependence, unspecified, uncomplicated; Y90.9 Presence of alcohol in blood, level not specified; W01.0XXA Fall on same level from slipping, tripping and stumbling without subsequent striking against object, initial encounter; Y93.89 Activity, other specified; Y92.010 Kitchen of single-family (private) house as the place of occurrence of the external cause
CPT/HCPCS: 70450; 99284; Z7610

== ENCOUNTER 2017-11-05 20:42 | Emergency (ER) | payer MEDICAID ==
[~2017-11-05] VITALS: Ht 162.6 cm; Wt 50.0 kg
[2017-11-06 06:44] VITALS: BP 142/81
== END 2017-11-06 07:01 | disposition home or self-care (01) ==
LOC: ER 20:42
DX: F10.229 Alcohol dependence with intoxication, unspecified (principal); Y90.6 Blood alcohol level of 120-199 mg/100 ml
CPT/HCPCS: 36415; 99283; G0482

== ENCOUNTER 2017-11-08 03:50 | Emergency (ER) | payer MEDICAID ==
[~2017-11-08] VITALS: Ht 162.6 cm; Wt 54.0 kg
[2017-11-08] MEDS ORDERED: IBUPROFEN 600MG TABLET PO STA (06:33)
[2017-11-08 07:02] LABS: CHLORIDE 103 mEq/L (98-107)
[2017-11-08 07:06] LABS: BASOPHILS % 0.3 % (0.0-2.0); EOSINOPHILS % 0.4 % (0.0-5.0); HEMATOCRIT. 32.7 % (36.0-48.0); HEMOGLOBIN. 11.2 g/dL (12.0-16.0); LYMPHOCYTES % 25.2 % (20.0-50.0); MEAN CORPUSCULAR HEMOGLOBIN 31.4 pg (28.0-32.0); MEAN CORPUSCULAR VOLUME 91.4 fL (81.0-99.0); MEAN PLATELET VOLUME 7.5 fl (7.4-10.4); MONOCYTES % 8.7 % (2.0-8.0); NEUTROPHILS % 65.4 % (40.0-76.0); PLATELET 304 x1000/uL (130-400); RED BLOOD CELL COUNT 3.58 mill/uL (4.2-5.4); RED CELL DISTRIBUTION WIDTH 14.5 % (11.6-14.6)
[2017-11-08 07:07] LABS: ETHANOL BLOOD 73 mg/dL
[2017-11-08 08:22] VITALS: BP 140/79
== END 2017-11-08 09:24 | disposition home or self-care (01) ==
LOC: ER 03:56
DX: R07.81 Pleurodynia (principal); M79.602 Pain in left arm; R51 Headache; F10.229 Alcohol dependence with intoxication, unspecified; Y90.3 Blood alcohol level of 60-79 mg/100 ml; W10.9XXA Fall (on) (from) unspecified stairs and steps, initial encounter; Y93.89 Activity, other specified; Y92.89 Other specified places as the place of occurrence of the external cause; I10 Essential (primary) hypertension; E11.9 Type 2 diabetes mellitus without complications; J45.909 Unspecified asthma, uncomplicated; Z91.14 Patient's other noncompliance with medication regimen; Z87.81 Personal history of (healed) traumatic fracture
CPT/HCPCS: 36415; 71101; 73060; 73090; 80053; 85025; 99285; G0482; Z7610

== ENCOUNTER 2017-11-08 21:16 | Emergency (ER) | payer MEDICAID ==
[~2017-11-08] VITALS: Ht 167.6 cm; Wt 64.0 kg
[2017-11-08 21:19] VITALS: BP 155/79
== END 2017-11-08 23:51 | disposition left against medical advice (07) ==
LOC: ER 21:16
DX: Z53.21 Procedure and treatment not carried out due to patient leaving prior to being seen by health care provider (principal)

== ENCOUNTER 2017-11-09 22:23 | Emergency (ER) | payer MEDICAID ==
[~2017-11-09] VITALS: Ht 162.6 cm; Wt 54.0 kg
[2017-11-10] MEDS ORDERED: KETOROLAC 15MG/ML VIAL IM ONE (05:15)
[2017-11-10 05:28] LABS: BASOPHILS % 0.4 % (0.0-2.0); EOSINOPHILS % 0.8 % (0.0-5.0); HEMATOCRIT. 35.6 % (36.0-48.0); HEMOGLOBIN. 11.9 g/dL (12.0-16.0); LYMPHOCYTES % 31.6 % (20.0-50.0); MEAN CORPUSCULAR HEMOGLOBIN 30.6 pg (28.0-32.0); MEAN CORPUSCULAR VOLUME 91.2 fL (81.0-99.0); MEAN PLATELET VOLUME 7.7 fl (7.4-10.4); MONOCYTES % 10.4 % (2.0-8.0); NEUTROPHILS % 56.8 % (40.0-76.0); PLATELET 274 x1000/uL (130-400); RED CELL DISTRIBUTION WIDTH 14.8 % (11.6-14.6)
[2017-11-10 05:33] LABS: CHLORIDE 105 mEq/L (98-107)
[2017-11-10 05:39] LABS: ETHANOL BLOOD 52 mg/dL
[2017-11-10 07:56] VITALS: BP 141/61
== END 2017-11-10 08:38 | disposition home or self-care (01) ==
LOC: ER 22:30
DX: F10.129 Alcohol abuse with intoxication, unspecified (principal); E11.9 Type 2 diabetes mellitus without complications; D64.9 Anemia, unspecified; W18.30XA Fall on same level, unspecified, initial encounter; Y93.89 Activity, other specified; Y92.89 Other specified places as the place of occurrence of the external cause; Y99.8 Other external cause status
CPT/HCPCS: 36415; 80053; 85025; 96372; 99284; G0482; J1885

== ENCOUNTER 2017-11-26 21:40 | Emergency (ER) | payer MEDICAID ==
[~2017-11-26] VITALS: Ht 165.1 cm; Wt 55.0 kg
[2017-11-27] MEDS ORDERED: ACETAMINOPHEN 325MG TABLET PO ONE (07:15)
[2017-11-27 07:35] VITALS: BP 150/80
== END 2017-11-27 08:06 | disposition home or self-care (01) ==
LOC: ER 21:52
DX: F10.20 Alcohol dependence, uncomplicated (principal); M79.671 Pain in right foot; M79.672 Pain in left foot; J45.909 Unspecified asthma, uncomplicated; I10 Essential (primary) hypertension; F17.200 Nicotine dependence, unspecified, uncomplicated; Y90.9 Presence of alcohol in blood, level not specified
CPT/HCPCS: 99283

== ENCOUNTER 2017-11-27 21:55 | Emergency (ER) | payer MEDICAID ==
[~2017-11-27] VITALS: Ht 162.6 cm; Wt 70.0 kg
[2017-11-27 23:10] LABS: HEMATOCRIT 35.4 % (36.0-48.0); HEMOGLOBIN 12.1 g/dL (12.0-16.0); MEAN CORPUSCULAR HEMOGLOBIN 30.8 pg (28.0-32.0); MEAN CORPUSCULAR VOLUME 89.9 fL (81.0-99.0); PLATELET 246 x1000/uL (130-400); RED BLOOD CELL COUNT 3.94 mill/uL (4.2-5.4); RED CELL DISTRIBUTION WIDTH 14.7 % (11.6-14.6)
[2017-11-27 23:15] LABS: CHLORIDE 99 mEq/L (98-107)
[2017-11-27 23:20] LABS: ETHANOL BLOOD 85 mg/dL
[2017-11-28 03:40] VITALS: BP 160/82
== END 2017-11-28 04:30 | disposition home or self-care (01) ==
LOC: ER 22:03
DX: F10.129 Alcohol abuse with intoxication, unspecified (principal); G89.29 Other chronic pain; W19.XXXA Unspecified fall, initial encounter
CPT/HCPCS: 36415; 80053; 85027; 99284; G0482; Z7610

== ENCOUNTER 2017-11-30 21:47 | Emergency (ER) | payer MEDICAID ==
[~2017-11-30] VITALS: Ht 162.6 cm; Wt 59.0 kg
[2017-11-30] MEDS ORDERED: IBUPROFEN 600MG TABLET PO STA (22:52)
[2017-11-30] MEDS ORDERED: IBUPROFEN 600MG TABLET PO SCH (23:54)
[2017-12-01 00:08] LABS: BASOPHILS % 0.3 % (0.0-2.0); EOSINOPHILS % 0.4 % (0.0-5.0); HEMATOCRIT. 33.4 % (36.0-48.0); HEMOGLOBIN. 11.4 g/dL (12.0-16.0); MEAN CORPUSCULAR HEMOGLOBIN 30.7 pg (28.0-32.0); MEAN CORPUSCULAR VOLUME 89.6 fL (81.0-99.0); MEAN PLATELET VOLUME 7.3 fl (7.4-10.4); MONOCYTES % 7.5 % (2.0-8.0); NEUTROPHILS % 64.8 % (40.0-76.0); PLATELET 267 x1000/uL (130-400); RED BLOOD CELL COUNT 3.73 mill/uL (4.2-5.4); RED CELL DISTRIBUTION WIDTH 14.9 % (11.6-14.6)
[2017-12-01 00:12] LABS: CHLORIDE 103 mEq/L (98-107)
[2017-12-01 00:16] LABS: INR 0.9; PARTIAL THROMBOPLASTIN TIME 26.7 sec (23.4-31.0); PROTHROMBIN TIME 9.8 sec (9.4-11.6)
[2017-12-01 08:45] VITALS: BP 135/85
== END 2017-12-01 09:09 | disposition home or self-care (01) ==
LOC: ER 21:56
DX: F10.20 Alcohol dependence, uncomplicated (principal); E04.1 Nontoxic single thyroid nodule; W19.XXXA Unspecified fall, initial encounter; Y93.89 Activity, other specified; Y92.89 Other specified places as the place of occurrence of the external cause; Y99.8 Other external cause status; R79.1 Abnormal coagulation profile; Y90.9 Presence of alcohol in blood, level not specified
CPT/HCPCS: 36415; 70450; 71045; 72125; 72170; 80053; 85025; 85610; 85730; 86850; 86900; 99285; A4315

== ENCOUNTER 2017-12-03 01:03 | Emergency (ER) | payer MEDICAID ==
[~2017-12-03] VITALS: Ht 167.6 cm; Wt 68.0 kg
[2017-12-03 01:06] VITALS: BP 138/60
== END 2017-12-03 01:35 | disposition left against medical advice (07) ==
LOC: ER 01:03
DX: M79.605 Pain in left leg (principal); Z53.21 Procedure and treatment not carried out due to patient leaving prior to being seen by health care provider

== ENCOUNTER 2017-12-03 21:47 | Emergency (ER) | payer MEDICAID ==
[~2017-12-03] VITALS: Ht 167.6 cm; Wt 64.0 kg
[2017-12-04 01:16] LABS: BASOPHILS % 0.4 % (0.0-2.0); EOSINOPHILS % 0.5 % (0.0-5.0); HEMATOCRIT. 33.1 % (36.0-48.0); HEMOGLOBIN. 11.2 g/dL (12.0-16.0); LYMPHOCYTES % 26.6 % (20.0-50.0); MEAN CORPUSCULAR HEMOGLOBIN 30.1 pg (28.0-32.0); MEAN CORPUSCULAR VOLUME 88.8 fL (81.0-99.0); MEAN PLATELET VOLUME 7.2 fl (7.4-10.4); MONOCYTES % 9.9 % (2.0-8.0); NEUTROPHILS % 62.6 % (40.0-76.0); PLATELET 297 x1000/uL (130-400); RED BLOOD CELL COUNT 3.73 mill/uL (4.2-5.4); RED CELL DISTRIBUTION WIDTH 14.7 % (11.6-14.6)
[2017-12-04 01:20] LABS: CHLORIDE 102 mEq/L (98-107)
[2017-12-04 01:24] LABS: ETHANOL BLOOD 184 mg/dL
[2017-12-04 06:49] VITALS: BP 141/65
== END 2017-12-04 06:49 | disposition home or self-care (01) ==
LOC: ER 22:01
DX: F10.229 Alcohol dependence with intoxication, unspecified (principal); Y90.6 Blood alcohol level of 120-199 mg/100 ml
CPT/HCPCS: 36415; 80053; 85025; 99284; G0482

== ENCOUNTER 2017-12-04 19:40 | Emergency (ER) | payer MEDICAID ==
[~2017-12-04] VITALS: Ht 162.6 cm; Wt 61.0 kg
[2017-12-04 19:42] VITALS: BP 130/73
== END 2017-12-04 21:00 | disposition left against medical advice (07) ==
LOC: ER 20:00
DX: M54.9 Dorsalgia, unspecified (principal); Z53.21 Procedure and treatment not carried out due to patient leaving prior to being seen by health care provider

== ENCOUNTER 2017-12-05 04:51 | Emergency (ER) | payer MEDICAID ==
[~2017-12-05] VITALS: Ht 165.1 cm; Wt 63.0 kg
[2017-12-05] MEDS ORDERED: ACETAMINOPHEN 325MG TABLET PO ONE (08:45)
[2017-12-05 09:18] LABS: BASOPHILS % 0.2 % (0.0-2.0); EOSINOPHILS % 0.6 % (0.0-5.0); HEMATOCRIT. 35.6 % (36.0-48.0); HEMOGLOBIN. 12.2 g/dL (12.0-16.0); LYMPHOCYTES % 21.7 % (20.0-50.0); MEAN CORPUSCULAR HEMOGLOBIN 30.4 pg (28.0-32.0); MEAN CORPUSCULAR VOLUME 88.7 fL (81.0-99.0); MEAN PLATELET VOLUME 7.3 fl (7.4-10.4); MONOCYTES % 9.2 % (2.0-8.0); NEUTROPHILS % 68.3 % (40.0-76.0); PLATELET 328 x1000/uL (130-400); RED BLOOD CELL COUNT 4.01 mill/uL (4.2-5.4)
[2017-12-05 10:23] LABS: CHLORIDE 106 mEq/L (98-107)
[2017-12-05 10:31] LABS: ETHANOL BLOOD 142 mg/dL
[2017-12-05 12:40] VITALS: BP 138/76
== END 2017-12-05 12:55 | disposition home or self-care (01) ==
LOC: ER 04:51
DX: R51 Headache (principal); F10.20 Alcohol dependence, uncomplicated; Y90.6 Blood alcohol level of 120-199 mg/100 ml; F17.210 Nicotine dependence, cigarettes, uncomplicated
CPT/HCPCS: 36415; 80053; 85025; 99284; G0482

== ENCOUNTER 2017-12-05 22:11 | Emergency (ER) | payer MEDICAID ==
[~2017-12-05] VITALS: Ht 157.5 cm; Wt 60.0 kg
[2017-12-06] MEDS ORDERED: ACETAMINOPHEN 325MG TABLET PO STA (06:21)
[2017-12-06 06:52] LABS: BASOPHILS % 0.3 % (0.0-2.0); EOSINOPHILS % 0.7 % (0.0-5.0); HEMATOCRIT. 35.1 % (36.0-48.0); HEMOGLOBIN. 11.8 g/dL (12.0-16.0); LYMPHOCYTES % 30.5 % (20.0-50.0); MEAN CORPUSCULAR HEMOGLOBIN 29.9 pg (28.0-32.0); MEAN CORPUSCULAR VOLUME 89.2 fL (81.0-99.0); MEAN PLATELET VOLUME 7.3 fl (7.4-10.4); MONOCYTES % 11.9 % (2.0-8.0); NEUTROPHILS % 56.6 % (40.0-76.0); PLATELET 333 x1000/uL (130-400); RED BLOOD CELL COUNT 3.93 mill/uL (4.2-5.4); RED CELL DISTRIBUTION WIDTH 14.8 % (11.6-14.6)
[2017-12-06 06:54] LABS: CHLORIDE 104 mEq/L (98-107)
[2017-12-06 07:00] LABS: ETHANOL BLOOD 59 mg/dL
[2017-12-06 10:34] VITALS: BP 149/84
== END 2017-12-06 10:34 | disposition home or self-care (01) ==
LOC: ER 22:44
DX: R51 Headache (principal); F10.20 Alcohol dependence, uncomplicated; Y90.2 Blood alcohol level of 40-59 mg/100 ml; I10 Essential (primary) hypertension
CPT/HCPCS: 36415; 80053; 85025; 99284; G0482

== ENCOUNTER 2017-12-07 02:23 | Emergency (ER) | payer MEDICAID ==
[~2017-12-07] VITALS: Ht 167.6 cm; Wt 65.0 kg
[2017-12-07] MEDS ORDERED: IBUPROFEN 600MG TABLET PO ONE (08:00)
[2017-12-07 09:00] VITALS: BP 121/63
== END 2017-12-07 09:43 | disposition home or self-care (01) ==
LOC: ER 02:23
DX: M79.605 Pain in left leg (principal); F10.10 Alcohol abuse, uncomplicated; Y90.4 Blood alcohol level of 80-99 mg/100 ml; M54.5 Low back pain; I10 Essential (primary) hypertension; W10.8XXA Fall (on) (from) other stairs and steps, initial encounter; Y93.89 Activity, other specified; Y92.098 Other place in other non-institutional residence as the place of occurrence of the external cause
CPT/HCPCS: 99283; Z7610

== ENCOUNTER 2017-12-10 01:00 | Emergency (ER) | payer MEDICAID ==
[~2017-12-10] VITALS: Ht 165.1 cm; Wt 73.0 kg
[2017-12-10 05:26] LABS: BASOPHILS % 0.5 % (0.0-2.0); EOSINOPHILS % 0.9 % (0.0-5.0); HEMATOCRIT. 34.3 % (36.0-48.0); HEMOGLOBIN. 11.4 g/dL (12.0-16.0); LYMPHOCYTES % 39.7 % (20.0-50.0); MEAN CORPUSCULAR HEMOGLOBIN 29.8 pg (28.0-32.0); MEAN CORPUSCULAR VOLUME 89.3 fL (81.0-99.0); MEAN PLATELET VOLUME 7.2 fl (7.4-10.4); MONOCYTES % 10.7 % (2.0-8.0); NEUTROPHILS % 48.2 % (40.0-76.0); PLATELET 272 x1000/uL (130-400); RED BLOOD CELL COUNT 3.84 mill/uL (4.2-5.4); RED CELL DISTRIBUTION WIDTH 15.1 % (11.6-14.6)
[2017-12-10 05:35] LABS: CHLORIDE 108 mEq/L (98-107)
[2017-12-10 05:40] LABS: ETHANOL BLOOD 91 mg/dL
[2017-12-10 06:24] VITALS: BP 153/89
== END 2017-12-10 07:15 | disposition home or self-care (01) ==
LOC: ER 01:00
DX: G92 Toxic encephalopathy (principal); F10.129 Alcohol abuse with intoxication, unspecified; F17.290 Nicotine dependence, other tobacco product, uncomplicated; E66.9 Obesity, unspecified; G89.29 Other chronic pain; I10 Essential (primary) hypertension; Y90.4 Blood alcohol level of 80-99 mg/100 ml
CPT/HCPCS: 36415; 80053; 85025; 99284; 99406; G0482

== ENCOUNTER 2017-12-14 21:00 | Emergency (ER) | payer MEDICAID ==
[~2017-12-14] VITALS: Ht 162.6 cm; Wt 59.0 kg
[2017-12-15] MEDS ORDERED: ACETAMINOPHEN 325MG TABLET PO ONE (00:15)
[2017-12-15 06:03] VITALS: BP 121/61
== END 2017-12-15 06:06 | disposition home or self-care (01) ==
LOC: ER 21:00
DX: F10.229 Alcohol dependence with intoxication, unspecified (principal); M79.1 Myalgia; I10 Essential (primary) hypertension; F17.200 Nicotine dependence, unspecified, uncomplicated; Y90.6 Blood alcohol level of 120-199 mg/100 ml
CPT/HCPCS: 36415; 99283; G0482

== ENCOUNTER 2018-02-23 02:49 | Emergency (ER) | payer MEDICAID ==
[~2018-02-23] VITALS: Ht 165.1 cm; Wt 54.0 kg
[2018-02-23] MEDS ORDERED: ACETAMINOPHEN 325MG TABLET PO ONE (07:45)
[2018-02-23 09:07] VITALS: BP 124/67
== END 2018-02-23 09:09 | disposition home or self-care (01) ==
LOC: ER 02:49
DX: S09.8XXA Other specified injuries of head, initial encounter (principal); M79.1 Myalgia; I10 Essential (primary) hypertension; J44.9 Chronic obstructive pulmonary disease, unspecified; R56.9 Unspecified convulsions; W01.0XXA Fall on same level from slipping, tripping and stumbling without subsequent striking against object, initial encounter; Y93.89 Activity, other specified; Y92.000 Kitchen of unspecified non-institutional (private) residence as the place of occurrence of the external cause
CPT/HCPCS: 70450; 99284

== ENCOUNTER 2018-02-24 17:58 | Emergency (ER) | payer MEDICAID ==
[~2018-02-24] VITALS: Ht 165.1 cm; Wt 62.0 kg
[2018-02-24 18:04] VITALS: BP 100/72
== END 2018-02-24 21:40 | disposition left against medical advice (07) ==
LOC: ER 18:11
DX: Z53.21 Procedure and treatment not carried out due to patient leaving prior to being seen by health care provider (principal)

== ENCOUNTER 2018-02-24 22:22 | Emergency (ER) | payer MEDICAID ==
[~2018-02-24] VITALS: Ht 165.1 cm; Wt 62.3 kg
[2018-02-24] MEDS ORDERED: IBUPROFEN 600MG TABLET PO ONE (23:15)
[2018-02-25 03:17] VITALS: BP 100/58
== END 2018-02-25 03:22 | disposition home or self-care (01) ==
LOC: ER 22:22
DX: S20.212A Contusion of left front wall of thorax, initial encounter (principal); S20.211A Contusion of right front wall of thorax, initial encounter; W19.XXXA Unspecified fall, initial encounter; Y93.89 Activity, other specified; Y92.89 Other specified places as the place of occurrence of the external cause; Y99.8 Other external cause status
CPT/HCPCS: 71045; 99283

== ENCOUNTER 2018-03-01 18:46 | Emergency (ER) | payer MEDICAID ==
[~2018-03-01] VITALS: Ht 165.1 cm; Wt 56.0 kg
[2018-03-01 18:48] VITALS: BP 119/64
== END 2018-03-01 19:20 | disposition left against medical advice (07) ==
LOC: ER 18:46
DX: R10.9 Unspecified abdominal pain (principal); Z53.21 Procedure and treatment not carried out due to patient leaving prior to being seen by health care provider

== ENCOUNTER 2018-03-03 03:49 | Emergency (ER) | payer MEDICAID ==
[~2018-03-03] VITALS: Ht 167.6 cm; Wt 68.0 kg
[2018-03-03] MEDS ORDERED: ACETAMINOPHEN 325MG TABLET PO ONE (04:30)
[2018-03-03 06:17] VITALS: BP 122/82
== END 2018-03-03 07:00 | disposition home or self-care (01) ==
LOC: ER 03:49
DX: S43.402A Unspecified sprain of left shoulder joint, initial encounter (principal); I10 Essential (primary) hypertension; E11.9 Type 2 diabetes mellitus without complications; Y08.89XA Assault by other specified means, initial encounter; Y93.9 Activity, unspecified; Y92.9 Unspecified place or not applicable
CPT/HCPCS: 73030; 99284

== ENCOUNTER 2018-05-20 23:25 | Emergency (ER) | payer MEDICAID ==
[~2018-05-20] VITALS: Ht 167.6 cm; Wt 68.0 kg
[2018-05-21] MEDS ORDERED: SODIUM CHLORIDE 0.9% 1,000 ML IV ONE (04:41)
[2018-05-21] MEDS ORDERED: ACETAMINOPHEN 325MG TABLET PO ONE (04:45)
[2018-05-21 05:35] LABS: CHLORIDE 105 mEq/L (98-107)
[2018-05-21 05:38] LABS: BASOPHILS % 0.2 % (0.0-2.0); EOSINOPHILS % 1.1 % (0.0-5.0); HEMATOCRIT. 39.1 % (36.0-48.0); HEMOGLOBIN. 13.3 g/dL (12.0-16.0); LYMPHOCYTES % 40.6 % (20.0-50.0); MEAN CORPUSCULAR HEMOGLOBIN 32.5 pg (28.0-32.0); MEAN CORPUSCULAR VOLUME 95.5 fL (81.0-99.0); MEAN PLATELET VOLUME 8.2 fl (7.4-10.4); MONOCYTES % 9.8 % (2.0-8.0); NEUTROPHILS % 48.3 % (40.0-76.0); PLATELET 201 x1000/uL (130-400); RED CELL DISTRIBUTION WIDTH 15.3 % (11.6-14.6)
[2018-05-21 07:25] LABS: ETHANOL BLOOD 181 mg/dL
[2018-05-21 07:28] LABS: CLARITY URINE CLEAR (CLEAR); COLOR URINE YELLOW (YELLOW); KETONES URINE NEGATIVE (NEGATIVE); LEUKOCYTE ESTERASE URINE NEGATIVE (NEGATIVE); NITRITE URINE NEGATIVE (NEGATIVE); OCCULT BLOOD URINE NEGATIVE (NEGATIVE); PH URINE 5.5 (4.5-8.0); PROTEIN URINE NEGATIVE (NEGATIVE); SPECIFIC GRAVITY URINE 1.003 (1.005-1.030); UROBILINOGEN URINE 0.2 E.U./dL (0.2-1.0)
[2018-05-21 07:42] LABS: *AMPHETAMINES SCREEN URINE NEGATIVE (NEGATIVE); *BARBITURATES SCREEN URINE NEGATIVE (NEGATIVE); *BENZODIAZEPINES SCREEN URINE NEGATIVE (NEGATIVE); *COCAINE SCREEN URINE NEGATIVE (NEGATIVE); CANNABINOID URINE SCREEN NEGATIVE (NEGATIVE); METHADONE URINE SCREEN NEGATIVE (NEGATIVE); OPIATES URINE SCREEN NEGATIVE (NEGATIVE); PHENCYCLIDINE URINE SCREEN NEGATIVE (NEGATIVE)
[2018-05-21 08:29] VITALS: BP 129/66
== END 2018-05-21 08:34 | disposition home or self-care (01) ==
LOC: ER 23:25
DX: F10.129 Alcohol abuse with intoxication, unspecified (principal); Y90.6 Blood alcohol level of 120-199 mg/100 ml; E11.9 Type 2 diabetes mellitus without complications; R42 Dizziness and giddiness; I10 Essential (primary) hypertension; F17.200 Nicotine dependence, unspecified, uncomplicated
CPT/HCPCS: 36415; 70450; 80053; 80305; 81003; 85025; 93005; 96360; 96361; 99285; G0482; J7030

== ENCOUNTER 2018-06-13 02:29 | Emergency (ER) | payer MEDICAID ==
[~2018-06-13] VITALS: Ht 162.6 cm; Wt 65.0 kg
[2018-06-13] MEDS ORDERED: IBUPROFEN 600MG TABLET PO STA (04:43)
[2018-06-13 09:05] VITALS: BP 124/75
== END 2018-06-13 09:10 | disposition home or self-care (01) ==
LOC: ER 02:29
DX: M79.10 Myalgia, unspecified site (principal); F17.200 Nicotine dependence, unspecified, uncomplicated; F10.20 Alcohol dependence, uncomplicated; Y90.9 Presence of alcohol in blood, level not specified; Y04.0XXA Assault by unarmed brawl or fight, initial encounter
CPT/HCPCS: 99283

== ENCOUNTER 2018-06-14 23:30 | Emergency (ER) | payer MEDICAID ==
[~2018-06-14] VITALS: Ht 167.6 cm; Wt 71.0 kg
[2018-06-15] MEDS ORDERED: SODIUM CHLORIDE 0.9% 1,000 ML IV ONE (07:04)
[2018-06-15 08:02] LABS: BASOPHILS % 0.1 % (0.0-2.0); HEMATOCRIT. 35.6 % (36.0-48.0); HEMOGLOBIN. 12.2 g/dL (12.0-16.0); LYMPHOCYTES % 21.5 % (20.0-50.0); MEAN CORPUSCULAR HEMOGLOBIN 32.8 pg (28.0-32.0); MEAN CORPUSCULAR VOLUME 95.6 fL (81.0-99.0); MEAN PLATELET VOLUME 8.2 fl (7.4-10.4); MONOCYTES % 13.1 % (2.0-8.0); NEUTROPHILS % 64.3 % (40.0-76.0); PLATELET 146 x1000/uL (130-400); RED BLOOD CELL COUNT 3.73 mill/uL (4.2-5.4); RED CELL DISTRIBUTION WIDTH 14.9 % (11.6-14.6)
[2018-06-15 08:06] LABS: CHLORIDE 105 mEq/L (98-107)
[2018-06-15 08:11] LABS: ETHANOL BLOOD < 10 mg/dL
[2018-06-15 08:40] LABS: CLARITY URINE CLEAR (CLEAR); COLOR URINE YELLOW (YELLOW); KETONES URINE NEGATIVE (NEGATIVE); LEUKOCYTE ESTERASE URINE NEGATIVE (NEGATIVE); NITRITE URINE NEGATIVE (NEGATIVE); OCCULT BLOOD URINE NEGATIVE (NEGATIVE); PH URINE 5.5 (4.5-8.0); PROTEIN URINE NEGATIVE (NEGATIVE); SPECIFIC GRAVITY URINE 1.011 (1.005-1.030)
[2018-06-15 09:10] LABS: *AMPHETAMINES SCREEN URINE NEGATIVE (NEGATIVE); *BARBITURATES SCREEN URINE NEGATIVE (NEGATIVE); CANNABINOID URINE SCREEN PRESUMTIVE POSITIVE (NEGATIVE)
[2018-06-15 09:12] LABS: *BENZODIAZEPINES SCREEN URINE NEGATIVE (NEGATIVE); *COCAINE SCREEN URINE NEGATIVE (NEGATIVE); METHADONE URINE SCREEN NEGATIVE (NEGATIVE); OPIATES URINE SCREEN NEGATIVE (NEGATIVE); PHENCYCLIDINE URINE SCREEN NEGATIVE (NEGATIVE)
[2018-06-15 10:21] VITALS: BP 164/84
== END 2018-06-15 10:21 | disposition home or self-care (01) ==
LOC: ER 06-15 07:22
DX: F10.10 Alcohol abuse, uncomplicated (principal); Y90.0 Blood alcohol level of less than 20 mg/100 ml; F17.200 Nicotine dependence, unspecified, uncomplicated
CPT/HCPCS: 36415; 80053; 80305; 81003; 85025; 99283; G0482; J7030

== ENCOUNTER 2018-06-16 12:28 | Emergency (ER) | payer MEDICAID ==
[~2018-06-16] VITALS: Ht 160 cm; Wt 54.5 kg
[2018-06-16] MEDS ORDERED: ACETAMINOPHEN 325MG TABLET PO ONE (13:00)
[2018-06-16 13:31] VITALS: BP 129/98
== END 2018-06-16 13:35 | disposition home or self-care (01) ==
LOC: ER 12:28
DX: F10.129 Alcohol abuse with intoxication, unspecified (principal); G89.29 Other chronic pain
CPT/HCPCS: 99283

== ENCOUNTER 2018-06-16 19:25 | Emergency (ER) | payer MEDICAID ==
[~2018-06-16] VITALS: Ht 157.5 cm; Wt 59.0 kg
[2018-06-16] MEDS ORDERED: IBUPROFEN 600MG TABLET PO ONE (23:15)
[2018-06-17 07:04] VITALS: BP 133/62
== END 2018-06-17 07:08 | disposition home or self-care (01) ==
LOC: ER 19:25
DX: F10.129 Alcohol abuse with intoxication, unspecified (principal); M79.602 Pain in left arm; Y90.8 Blood alcohol level of 240 mg/100 ml or more
CPT/HCPCS: 36415; 73060; 73070; 99284; G0482

== ENCOUNTER 2018-06-17 20:34 | Emergency (ER) | payer MEDICAID ==
[~2018-06-17] VITALS: Ht 170.2 cm; Wt 68.0 kg
[2018-06-18] MEDS ORDERED: IBUPROFEN 600MG TABLET PO ONE (08:30)
[2018-06-18 09:16] VITALS: BP 143/72
== END 2018-06-18 09:26 | disposition home or self-care (01) ==
LOC: ER 20:39
DX: M79.18 Myalgia, other site (principal); F17.200 Nicotine dependence, unspecified, uncomplicated; W01.0XXA Fall on same level from slipping, tripping and stumbling without subsequent striking against object, initial encounter; Y93.01 Activity, walking, marching and hiking; Y92.9 Unspecified place or not applicable
CPT/HCPCS: 99283

== ENCOUNTER 2018-06-21 22:56 | Emergency (ER) | payer MEDICAID ==
[~2018-06-21] VITALS: Ht 167.6 cm; Wt 68.0 kg
[2018-06-21 23:14] VITALS: BP 124/82
== END 2018-06-22 10:30 | disposition left against medical advice (07) ==
LOC: ER 22:56
DX: F10.220 Alcohol dependence with intoxication, uncomplicated (principal); I10 Essential (primary) hypertension; Z53.21 Procedure and treatment not carried out due to patient leaving prior to being seen by health care provider; Y90.8 Blood alcohol level of 240 mg/100 ml or more

== ENCOUNTER 2018-06-22 21:56 | Emergency (ER) | payer MEDICAID ==
[~2018-06-22] VITALS: Ht 160 cm; Wt 76.0 kg
[2018-06-23] MEDS ORDERED: ACETAMINOPHEN 325MG TABLET PO ONE (08:15)
[2018-06-23 11:17] VITALS: BP 169/79
== END 2018-06-23 11:21 | disposition home or self-care (01) ==
LOC: ER 21:56
DX: R52 Pain, unspecified (principal); I10 Essential (primary) hypertension; F17.200 Nicotine dependence, unspecified, uncomplicated; W18.09XA Striking against other object with subsequent fall, initial encounter; Y93.89 Activity, other specified; Y92.89 Other specified places as the place of occurrence of the external cause; Y99.8 Other external cause status
CPT/HCPCS: 99283

== ENCOUNTER 2018-06-24 14:00 | Emergency (ER) | payer MEDICAID ==
[~2018-06-24] VITALS: Ht 162.6 cm; Wt 56.0 kg
[2018-06-24] MEDS ORDERED: KETOROLAC 60MG/2ML VIAL IM ONE (23:15)
[2018-06-24 23:21] VITALS: BP 163/70
== END 2018-06-25 00:03 | disposition home or self-care (01) ==
LOC: ER 14:00
DX: M79.604 Pain in right leg (principal); W19.XXXA Unspecified fall, initial encounter; Y93.89 Activity, other specified; Y92.89 Other specified places as the place of occurrence of the external cause; Y99.8 Other external cause status
CPT/HCPCS: 96372; 99283; J1885

== ENCOUNTER 2018-06-27 22:18 | Emergency (ER) | payer MEDICAID ==
[~2018-06-27] VITALS: Ht 167.6 cm; Wt 68.0 kg
[2018-06-28 06:42] VITALS: BP 166/91
[2018-06-28] MEDS ORDERED: ACETAMINOPHEN 325MG TABLET PO ONE (06:45)
[2018-06-28 07:18] LABS: BASOPHILS % 0.3 % (0.0-2.0); EOSINOPHILS % 1.1 % (0.0-5.0); HEMATOCRIT. 37.4 % (36.0-48.0); HEMOGLOBIN. 12.6 g/dL (12.0-16.0); LYMPHOCYTES % 34.8 % (20.0-50.0); MEAN CORPUSCULAR HEMOGLOBIN 32.4 pg (28.0-32.0); MEAN CORPUSCULAR VOLUME 96.3 fL (81.0-99.0); MEAN PLATELET VOLUME 7.8 fl (7.4-10.4); MONOCYTES % 12.8 % (2.0-8.0); PLATELET 218 x1000/uL (130-400); RED BLOOD CELL COUNT 3.89 mill/uL (4.2-5.4); RED CELL DISTRIBUTION WIDTH 15.1 % (11.6-14.6)
[2018-06-28 07:23] LABS: CHLORIDE 107 mEq/L (98-107)
[2018-06-28 07:28] LABS: ETHANOL BLOOD 128 mg/dL
== END 2018-06-28 09:50 | disposition home or self-care (01) ==
LOC: ER 22:18
DX: M79.10 Myalgia, unspecified site (principal); J45.909 Unspecified asthma, uncomplicated; E11.9 Type 2 diabetes mellitus without complications; I10 Essential (primary) hypertension; F10.129 Alcohol abuse with intoxication, unspecified; Y90.6 Blood alcohol level of 120-199 mg/100 ml
CPT/HCPCS: 36415; 80048; 85025; 99283; G0482

== ENCOUNTER 2018-06-28 16:29 | Emergency (ER) | payer MEDICAID ==
[~2018-06-28] VITALS: Ht 162.6 cm; Wt 65.0 kg
[2018-06-28] MEDS ORDERED: ACETAMINOPHEN 325MG TABLET PO ONE (22:00)
[2018-06-28 23:05] VITALS: BP 112/58
== END 2018-06-28 23:14 | disposition home or self-care (01) ==
LOC: ER 16:40
DX: F10.229 Alcohol dependence with intoxication, unspecified (principal); M79.18 Myalgia, other site; J45.909 Unspecified asthma, uncomplicated; E11.9 Type 2 diabetes mellitus without complications; I10 Essential (primary) hypertension; Z79.899 Other long term (current) drug therapy; Y90.9 Presence of alcohol in blood, level not specified
CPT/HCPCS: 99283

== ENCOUNTER 2018-06-29 20:26 | Emergency (ER) | payer MEDICAID ==
[~2018-06-29] VITALS: Ht 167.6 cm; Wt 72.0 kg
[2018-06-30 01:27] VITALS: BP 100/63
== END 2018-06-30 01:29 | disposition home or self-care (01) ==
LOC: ER 20:26
DX: G89.29 Other chronic pain (principal)
CPT/HCPCS: 99283

== ENCOUNTER 2018-06-30 21:16 | Emergency (ER) | payer MEDICAID ==
[~2018-06-30] VITALS: Ht 165.1 cm; Wt 70.0 kg
[2018-07-01 03:47] VITALS: BP 121/71
== END 2018-07-01 03:49 | disposition home or self-care (01) ==
LOC: ER 21:16
DX: M79.10 Myalgia, unspecified site (principal); M19.90 Unspecified osteoarthritis, unspecified site; F10.20 Alcohol dependence, uncomplicated; F17.200 Nicotine dependence, unspecified, uncomplicated; Y90.9 Presence of alcohol in blood, level not specified
CPT/HCPCS: 99283

== ENCOUNTER 2018-09-14 13:57 | Emergency (ER) | payer MEDICAID ==
[~2018-09-14] VITALS: Ht 167.6 cm; Wt 75.0 kg
[2018-09-14] MEDS ORDERED: IBUPROFEN 600MG TABLET PO ONE (16:45)
[2018-09-14] MEDS ORDERED: ACETAMINOPHEN 325MG TABLET PO ONE (21:30)
[2018-09-15] MEDS ORDERED: ONDANSETRON HCL 4MG TABLET PO ONE (11:45)
[2018-09-15 13:00] VITALS: BP 166/85
== END 2018-09-15 13:45 | disposition home or self-care (01) ==
LOC: ER 13:57
DX: T51.91XA Toxic effect of unspecified alcohol, accidental (unintentional), initial encounter (principal); Y92.9 Unspecified place or not applicable; F10.129 Alcohol abuse with intoxication, unspecified; Y90.8 Blood alcohol level of 240 mg/100 ml or more
CPT/HCPCS: 36415; 80320; 82962; 99284; Q0162; G0480

== ENCOUNTER 2018-09-15 20:06 | Emergency (ER) | payer MEDICAID ==
[~2018-09-15] VITALS: Ht 165.1 cm; Wt 53.0 kg
[2018-09-16] MEDS ORDERED: IBUPROFEN 600MG TABLET PO ONE (03:45)
[2018-09-16 07:09] VITALS: BP 126/71
== END 2018-09-16 07:14 | disposition home or self-care (01) ==
LOC: ER 20:06
DX: M25.551 Pain in right hip (principal); F17.290 Nicotine dependence, other tobacco product, uncomplicated
CPT/HCPCS: 73501; 99283

== ENCOUNTER 2018-09-16 10:51 | Emergency (ER) | payer MEDICAID ==
[~2018-09-16] VITALS: Ht 162.6 cm; Wt 60.0 kg
[2018-09-16] MEDS ORDERED: IBUPROFEN 600MG TABLET PO ONE (15:30)
[2018-09-16 15:55] VITALS: BP 122/80
== END 2018-09-16 15:58 | disposition home or self-care (01) ==
LOC: ER 10:51
DX: G89.29 Other chronic pain (principal); F10.20 Alcohol dependence, uncomplicated; R09.89 Other specified symptoms and signs involving the circulatory and respiratory systems; F17.200 Nicotine dependence, unspecified, uncomplicated; W18.39XA Other fall on same level, initial encounter; Y93.89 Activity, other specified; Y92.000 Kitchen of unspecified non-institutional (private) residence as the place of occurrence of the external cause; Y99.8 Other external cause status
CPT/HCPCS: 99283

== ENCOUNTER 2018-09-18 16:32 | Emergency (ER) | payer MEDICAID ==
[~2018-09-18] VITALS: Ht 157.5 cm; Wt 64.0 kg
[2018-09-18 16:38] VITALS: BP 106/76
== END 2018-09-19 01:16 | disposition left against medical advice (07) ==
LOC: ER 16:32
DX: Z53.21 Procedure and treatment not carried out due to patient leaving prior to being seen by health care provider (principal)

== ENCOUNTER 2018-09-19 03:13 | Emergency (ER) | payer MEDICAID ==
[~2018-09-19] VITALS: Ht 167.6 cm; Wt 75.0 kg
[2018-09-19 12:34] VITALS: BP 162/95
[2018-09-19] MEDS ORDERED: ACETAMINOPHEN 325MG TABLET PO ONE (13:15)
== END 2018-09-19 13:18 | disposition home or self-care (01) ==
LOC: ER 03:13
DX: M79.605 Pain in left leg (principal); W10.8XXA Fall (on) (from) other stairs and steps, initial encounter; Y93.89 Activity, other specified; Y92.89 Other specified places as the place of occurrence of the external cause
CPT/HCPCS: 99283

== ENCOUNTER 2018-09-21 19:19 | Emergency (ER) | payer MEDICAID ==
[~2018-09-21] VITALS: Ht 165.1 cm; Wt 62.0 kg
[2018-09-22] MEDS ORDERED: ACETAMINOPHEN 325MG TABLET PO ONE (09:15)
[2018-09-22 11:41] VITALS: BP 158/68
== END 2018-09-22 11:44 | disposition home or self-care (01) ==
LOC: ER 19:31
DX: G89.29 Other chronic pain (principal); F10.10 Alcohol abuse, uncomplicated; I10 Essential (primary) hypertension
CPT/HCPCS: 99283

== ENCOUNTER 2018-09-23 09:03 | Emergency (ER) | payer MEDICAID ==
[~2018-09-23] VITALS: Ht 165.1 cm; Wt 60.0 kg
[2018-09-23] MEDS ORDERED: ACETAMINOPHEN 325MG TABLET PO ONE (09:30)
[2018-09-23 12:42] VITALS: BP 111/65
== END 2018-09-23 12:52 | disposition home or self-care (01) ==
LOC: ER 09:36
DX: M79.672 Pain in left foot (principal); I10 Essential (primary) hypertension
CPT/HCPCS: 99283

== ENCOUNTER 2018-09-23 17:17 | Emergency (ER) | payer MEDICAID ==
[~2018-09-23] VITALS: Ht 162.6 cm; Wt 135.0 kg
[2018-09-23 20:25] VITALS: BP 108/73
[2018-09-24] MEDS ORDERED: ACETAMINOPHEN 325MG TABLET PO ONE (00:45)
== END 2018-09-24 03:00 | disposition home or self-care (01) ==
LOC: ER 17:17
DX: M25.562 Pain in left knee (principal); M85.88 Other specified disorders of bone density and structure, other site; J45.909 Unspecified asthma, uncomplicated; E11.9 Type 2 diabetes mellitus without complications; I10 Essential (primary) hypertension; F17.200 Nicotine dependence, unspecified, uncomplicated; W01.0XXA Fall on same level from slipping, tripping and stumbling without subsequent striking against object, initial encounter; Y93.9 Activity, unspecified; Y92.9 Unspecified place or not applicable
CPT/HCPCS: 73562; 99283

== ENCOUNTER 2018-09-24 08:24 | Emergency (ER) | payer MEDICAID ==
[~2018-09-24] VITALS: Ht 162.6 cm; Wt 57.0 kg
[2018-09-24] MEDS ORDERED: ACETAMINOPHEN 325MG TABLET PO ONE (10:15)
[2018-09-24 13:35] VITALS: BP 142/64
== END 2018-09-24 13:40 | disposition home or self-care (01) ==
LOC: ER 08:24
DX: S82.432A Displaced oblique fracture of shaft of left fibula, initial encounter for closed fracture (principal); F10.10 Alcohol abuse, uncomplicated; I10 Essential (primary) hypertension; E11.9 Type 2 diabetes mellitus without complications; J45.909 Unspecified asthma, uncomplicated; M85.88 Other specified disorders of bone density and structure, other site; W01.0XXA Fall on same level from slipping, tripping and stumbling without subsequent striking against object, initial encounter; Y93.9 Activity, unspecified; Y92.9 Unspecified place or not applicable; Y90.9 Presence of alcohol in blood, level not specified
CPT/HCPCS: 29515; 73562; 99283

== ENCOUNTER 2018-09-24 22:23 | Emergency (ER) | payer MEDICAID ==
[~2018-09-24] VITALS: Ht 162.6 cm; Wt 61.0 kg
[2018-09-25] MEDS ORDERED: ACETAMINOPHEN 325MG TABLET PO ONE (03:30)
[2018-09-25 09:10] VITALS: BP 121/60
== END 2018-09-25 09:10 | disposition home or self-care (01) ==
LOC: ER 22:40
DX: S82.402A Unspecified fracture of shaft of left fibula, initial encounter for closed fracture (principal); M79.605 Pain in left leg; F14.10 Cocaine abuse, uncomplicated; F10.20 Alcohol dependence, uncomplicated; Y90.9 Presence of alcohol in blood, level not specified; X58.XXXA Exposure to other specified factors, initial encounter; Y93.89 Activity, other specified; Y92.89 Other specified places as the place of occurrence of the external cause; Y99.8 Other external cause status
CPT/HCPCS: 29505; 93922; 93971; 99284; Z7610

== ENCOUNTER 2018-09-25 23:19 | Emergency (ER) | payer MEDICAID ==
[~2018-09-25] VITALS: Ht 170.2 cm; Wt 54.0 kg
[2018-09-26] MEDS ORDERED: ACETAMINOPHEN 500MG TABLET PO ONE (12:15)
[2018-09-26 12:35] VITALS: BP 142/81
== END 2018-09-26 12:43 | disposition home or self-care (01) ==
LOC: ER 23:19
DX: M79.10 Myalgia, unspecified site (principal); F14.10 Cocaine abuse, uncomplicated; F10.21 Alcohol dependence, in remission; W10.8XXA Fall (on) (from) other stairs and steps, initial encounter; Y93.9 Activity, unspecified; Y92.038 Other place in apartment as the place of occurrence of the external cause
CPT/HCPCS: 99283

== ENCOUNTER 2018-09-26 22:26 | Emergency (ER) | payer MEDICAID ==
[~2018-09-26] VITALS: Ht 167.6 cm; Wt 54.0 kg
[2018-09-27] MEDS ORDERED: SODIUM CHLORIDE 0.9% 1,000 ML IV ONE (11:12)
[2018-09-27] MEDS ORDERED: IBUPROFEN 600MG TABLET PO STA (11:12)
[2018-09-27 12:06] LABS: BASOPHILS % 0.1 % (0.0-2.0); EOSINOPHILS % 0.8 % (0.0-5.0); HEMATOCRIT. 38.1 % (36.0-48.0); HEMOGLOBIN. 12.5 g/dL (12.0-16.0); MEAN CORPUSCULAR HEMOGLOBIN 31.9 pg (28.0-32.0); MEAN CORPUSCULAR VOLUME 97.1 fL (81.0-99.0); MEAN PLATELET VOLUME 8.3 fl (7.4-10.4); MONOCYTES % 9.5 % (2.0-8.0); NEUTROPHILS % 64.6 % (40.0-76.0); PLATELET 203 x1000/uL (130-400); RED BLOOD CELL COUNT 3.92 mill/uL (4.2-5.4)
[2018-09-27 12:09] LABS: CHLORIDE 107 mEq/L (98-107)
[2018-09-27 12:13] LABS: ETHANOL BLOOD 102 mg/dL
[2018-09-27 16:41] VITALS: BP 159/67
== END 2018-09-27 16:53 | disposition home or self-care (01) ==
LOC: ER 22:26
DX: M25.512 Pain in left shoulder (principal); M25.572 Pain in left ankle and joints of left foot; M79.672 Pain in left foot; F10.229 Alcohol dependence with intoxication, unspecified; F14.10 Cocaine abuse, uncomplicated; Y90.5 Blood alcohol level of 100-119 mg/100 ml; W10.8XXA Fall (on) (from) other stairs and steps, initial encounter; Y93.89 Activity, other specified; Y92.038 Other place in apartment as the place of occurrence of the external cause
CPT/HCPCS: 36415; 70450; 71045; 73030; 73610; 73630; 80053; 80305; 80320; 85025; 99284; J7030; Z7610; G0480

== ENCOUNTER 2018-09-28 16:51 | Emergency (ER) | payer MEDICAID ==
[~2018-09-28] VITALS: Ht 162.6 cm; Wt 63.0 kg
[2018-09-28 16:53] VITALS: BP 128/67
== END 2018-09-28 19:13 | disposition home or self-care (01) ==
LOC: ER 16:51
DX: Z00.00 Encounter for general adult medical examination without abnormal findings (principal); R52 Pain, unspecified; F17.200 Nicotine dependence, unspecified, uncomplicated
CPT/HCPCS: 99283

== ENCOUNTER 2018-09-29 00:52 | Emergency (ER) | payer MEDICAID ==
[~2018-09-29] VITALS: Ht 172.7 cm; Wt 63.0 kg
[2018-09-29] MEDS ORDERED: ACETAMINOPHEN 325MG TABLET PO ONE (06:45)
[2018-09-29 06:57] VITALS: BP 128/71
== END 2018-09-29 07:10 | disposition home or self-care (01) ==
LOC: ER 00:52
DX: M79.605 Pain in left leg (principal); F10.10 Alcohol abuse, uncomplicated; I10 Essential (primary) hypertension
CPT/HCPCS: 99283

== ENCOUNTER 2018-10-20 20:50 | Emergency (ER) | payer MEDICAID ==
[~2018-10-20] VITALS: Ht 162.6 cm; Wt 61.0 kg
[2018-10-21] MEDS ORDERED: IBUPROFEN 600MG TABLET PO ONE (03:15)
[2018-10-21 04:56] VITALS: BP 167/87
== END 2018-10-21 04:58 | disposition home or self-care (01) ==
LOC: ER 20:50
DX: M79.18 Myalgia, other site (principal); F17.200 Nicotine dependence, unspecified, uncomplicated; I10 Essential (primary) hypertension
CPT/HCPCS: 99283

== ENCOUNTER 2018-10-22 19:56 | Emergency (ER) | payer MEDICAID ==
[~2018-10-22] VITALS: Ht 160 cm; Wt 60.0 kg
[2018-10-23] MEDS ORDERED: IBUPROFEN 600MG TABLET PO ONE (02:15)
[2018-10-23 05:59] VITALS: BP 132/77
== END 2018-10-23 06:03 | disposition home or self-care (01) ==
LOC: ER 19:56
DX: M79.18 Myalgia, other site (principal); J45.909 Unspecified asthma, uncomplicated; E11.9 Type 2 diabetes mellitus without complications; I10 Essential (primary) hypertension; F17.200 Nicotine dependence, unspecified, uncomplicated; F10.20 Alcohol dependence, uncomplicated; Y90.0 Blood alcohol level of less than 20 mg/100 ml
CPT/HCPCS: 99283

== ENCOUNTER 2018-10-31 18:22 | Emergency (ER) | payer MEDICAID ==
[~2018-10-31] VITALS: Ht 162.6 cm; Wt 65.0 kg
[2018-11-01 06:36] VITALS: BP 124/68
== END 2018-11-01 06:36 | disposition home or self-care (01) ==
LOC: ER 18:22
DX: F10.229 Alcohol dependence with intoxication, unspecified (principal); J45.909 Unspecified asthma, uncomplicated; E11.9 Type 2 diabetes mellitus without complications; I10 Essential (primary) hypertension; Z79.899 Other long term (current) drug therapy; Y90.9 Presence of alcohol in blood, level not specified
CPT/HCPCS: 99283; Z7610

== ENCOUNTER 2018-11-01 21:24 | Emergency (ER) | payer MEDICAID ==
[~2018-11-01] VITALS: Ht 165.1 cm; Wt 55.0 kg
[2018-11-02] MEDS ORDERED: IBUPROFEN 600MG TABLET PO ONE (10:30)
[2018-11-02 10:57] VITALS: BP 158/80
== END 2018-11-02 10:58 | disposition home or self-care (01) ==
LOC: ER 21:24
DX: M79.18 Myalgia, other site (principal); F10.129 Alcohol abuse with intoxication, unspecified; Y90.9 Presence of alcohol in blood, level not specified
CPT/HCPCS: 99283

== ENCOUNTER 2018-11-02 20:04 | Emergency (ER) | payer MEDICAID ==
[~2018-11-02] VITALS: Ht 162.6 cm; Wt 64.0 kg
[2018-11-03] MEDS ORDERED: IBUPROFEN 600MG TABLET PO ONE
[2018-11-03 00:53] VITALS: BP 149/60
== END 2018-11-03 01:05 | disposition home or self-care (01) ==
LOC: ER 20:04
DX: G89.29 Other chronic pain (principal)
CPT/HCPCS: 99283; Z7610

== ENCOUNTER 2018-11-05 00:03 | Emergency (ER) | payer MEDICAID ==
[~2018-11-05] VITALS: Ht 167.6 cm; Wt 66.0 kg
[2018-11-05] MEDS ORDERED: IBUPROFEN 400MG TABLET PO ONE (05:00)
[2018-11-05 05:11] VITALS: BP 148/82
== END 2018-11-05 05:12 | disposition home or self-care (01) ==
LOC: ER 00:03
DX: G89.29 Other chronic pain (principal)
CPT/HCPCS: 99283

== ENCOUNTER 2018-11-05 20:21 | Emergency (ER) | payer MEDICAID ==
[~2018-11-05] VITALS: Ht 167.6 cm; Wt 61.0 kg
[2018-11-05 20:25] VITALS: BP 120/100
== END 2018-11-05 22:46 | disposition left against medical advice (07) ==
LOC: ER 21:00
DX: Z53.21 Procedure and treatment not carried out due to patient leaving prior to being seen by health care provider (principal)

== ENCOUNTER 2018-11-07 01:48 | Emergency (ER) | payer MEDICAID ==
[~2018-11-07] VITALS: Ht 167.6 cm; Wt 59.1 kg
[2018-11-07] MEDS ORDERED: ACETAMINOPHEN 500MG TABLET PO ONE (07:15)
[2018-11-07 09:00] VITALS: BP 119/74
== END 2018-11-07 09:30 | disposition home or self-care (01) ==
LOC: ER 01:48
DX: M79.18 Myalgia, other site (principal); F10.20 Alcohol dependence, uncomplicated; Y90.0 Blood alcohol level of less than 20 mg/100 ml
CPT/HCPCS: 99283

== ENCOUNTER 2018-11-08 04:19 | Emergency (ER) | payer MEDICAID ==
[~2018-11-08] VITALS: Ht 165.1 cm; Wt 60.0 kg
[2018-11-08] MEDS ORDERED: ACETAMINOPHEN 325MG TABLET PO ONE (07:00)
[2018-11-08 08:15] VITALS: BP 116/84
== END 2018-11-08 08:36 | disposition home or self-care (01) ==
LOC: ER 04:19
DX: M54.5 Low back pain (principal); M79.605 Pain in left leg; F10.20 Alcohol dependence, uncomplicated; Y90.0 Blood alcohol level of less than 20 mg/100 ml
CPT/HCPCS: 99283

== ENCOUNTER 2019-01-02 01:38 | Emergency (ER) | payer MEDICAID ==
[~2019-01-02] VITALS: Ht 167.6 cm; Wt 59.0 kg
[2019-01-02] MEDS ORDERED: ACETAMINOPHEN 500MG TABLET PO ONE (06:00)
[2019-01-02 06:13] LABS: BASOPHILS % 0.3 % (0.0-2.0); EOSINOPHILS % 0.5 % (0.0-5.0); HEMATOCRIT. 38.2 % (36.0-48.0); HEMOGLOBIN. 12.9 g/dL (12.0-16.0); LYMPHOCYTES % 37.7 % (20.0-50.0); MEAN CORPUSCULAR HEMOGLOBIN 31.6 pg (28.0-32.0); MEAN CORPUSCULAR VOLUME 93.7 fL (81.0-99.0); MEAN PLATELET VOLUME 7.5 fl (7.4-10.4); MONOCYTES % 10.3 % (2.0-8.0); NEUTROPHILS % 51.2 % (40.0-76.0); PLATELET 308 x1000/uL (130-400); RED BLOOD CELL COUNT 4.08 mill/uL (4.2-5.4); RED CELL DISTRIBUTION WIDTH 15.2 % (11.6-14.6)
[2019-01-02 06:23] LABS: CLARITY URINE CLEAR (CLEAR); COLOR URINE YELLOW (YELLOW); KETONES URINE NEGATIVE (NEGATIVE); LEUKOCYTE ESTERASE URINE NEGATIVE (NEGATIVE); NITRITE URINE NEGATIVE (NEGATIVE); OCCULT BLOOD URINE NEGATIVE (NEGATIVE); PROTEIN URINE NEGATIVE (NEGATIVE); SPECIFIC GRAVITY URINE 1.006 (1.005-1.030); UROBILINOGEN URINE 0.2 E.U./dL (0.2-1.0)
[2019-01-02 06:29] LABS: CHLORIDE 106 mEq/L (98-107)
[2019-01-02 06:32] LABS: ETHANOL BLOOD 68 mg/dL
[2019-01-02 06:36] LABS: *AMPHETAMINES SCREEN URINE NEGATIVE (NEGATIVE); *BARBITURATES SCREEN URINE NEGATIVE (NEGATIVE)
[2019-01-02 06:37] LABS: *BENZODIAZEPINES SCREEN URINE NEGATIVE (NEGATIVE); *COCAINE SCREEN URINE NEGATIVE (NEGATIVE); CANNABINOID URINE SCREEN NEGATIVE (NEGATIVE); METHADONE URINE SCREEN NEGATIVE (NEGATIVE); OPIATES URINE SCREEN NEGATIVE (NEGATIVE); PHENCYCLIDINE URINE SCREEN NEGATIVE (NEGATIVE)
[2019-01-02 08:21] VITALS: BP 158/80
== END 2019-01-02 08:22 | disposition home or self-care (01) ==
LOC: ER 01:52
DX: M79.621 Pain in right upper arm (principal); M79.661 Pain in right lower leg; F17.200 Nicotine dependence, unspecified, uncomplicated; W01.0XXA Fall on same level from slipping, tripping and stumbling without subsequent striking against object, initial encounter; Y93.89 Activity, other specified; Y92.89 Other specified places as the place of occurrence of the external cause; Y99.8 Other external cause status
CPT/HCPCS: 36415; 80048; 80305; 80320; 81003; 85025; 99283; Z7610; G0480

== ENCOUNTER 2019-01-07 22:33 | Emergency (ER) | payer MEDICAID ==
[~2019-01-07] VITALS: Ht 167.6 cm; Wt 55.0 kg
[2019-01-08 04:09] VITALS: BP 128/82
== END 2019-01-08 04:11 | disposition home or self-care (01) ==
LOC: ER 22:33
DX: M79.18 Myalgia, other site (principal); F10.129 Alcohol abuse with intoxication, unspecified; I10 Essential (primary) hypertension; J45.909 Unspecified asthma, uncomplicated; F17.200 Nicotine dependence, unspecified, uncomplicated; Z79.899 Other long term (current) drug therapy; Y90.9 Presence of alcohol in blood, level not specified
CPT/HCPCS: 99283

== ENCOUNTER 2019-01-08 15:28 | Emergency (ER) | payer MEDICAID ==
[~2019-01-08] VITALS: Ht 167.6 cm; Wt 75.0 kg
[2019-01-08 15:30] VITALS: BP 145/67
== END 2019-01-08 20:48 | disposition left against medical advice (07) ==
LOC: ER 15:28
DX: R10.9 Unspecified abdominal pain (principal); Z53.21 Procedure and treatment not carried out due to patient leaving prior to being seen by health care provider

== ENCOUNTER 2019-01-09 23:50 | Emergency (ER) | payer MEDICAID ==
[~2019-01-09] VITALS: Ht 165.1 cm; Wt 61.0 kg
[2019-01-10 07:00] VITALS: BP 132/85
[2019-01-10] MEDS ORDERED: ACETAMINOPHEN 500MG TABLET PO ONE (08:30)
== END 2019-01-10 09:15 | disposition home or self-care (01) ==
LOC: ER 23:50
DX: M25.511 Pain in right shoulder (principal); I10 Essential (primary) hypertension; J45.909 Unspecified asthma, uncomplicated; F10.20 Alcohol dependence, uncomplicated; Y90.3 Blood alcohol level of 60-79 mg/100 ml; F17.200 Nicotine dependence, unspecified, uncomplicated; W10.8XXA Fall (on) (from) other stairs and steps, initial encounter; Y93.89 Activity, other specified; Y92.89 Other specified places as the place of occurrence of the external cause; Y99.8 Other external cause status
CPT/HCPCS: 99283

== ENCOUNTER 2019-01-11 23:23 | Emergency (ER) | payer MEDICAID ==
[~2019-01-11] VITALS: Ht 175.3 cm; Wt 60.0 kg
[2019-01-12 05:51] VITALS: BP 139/71
== END 2019-01-12 05:57 | disposition home or self-care (01) ==
LOC: ER 23:23
DX: S40.011A Contusion of right shoulder, initial encounter (principal); S70.01XA Contusion of right hip, initial encounter; J44.9 Chronic obstructive pulmonary disease, unspecified; I10 Essential (primary) hypertension; R56.9 Unspecified convulsions; F17.210 Nicotine dependence, cigarettes, uncomplicated; W01.0XXA Fall on same level from slipping, tripping and stumbling without subsequent striking against object, initial encounter; Y93.9 Activity, unspecified; Y92.9 Unspecified place or not applicable
CPT/HCPCS: 71045; 72170; 73060; 99283

== ENCOUNTER 2019-01-12 14:55 | Emergency (ER) | payer MEDICAID ==
[~2019-01-12] VITALS: Ht 162.6 cm; Wt 59.0 kg
[2019-01-12 15:01] VITALS: BP 132/82
[2019-01-12] MEDS ORDERED: ACETAMINOPHEN 325MG TABLET PO ONE (15:30)
== END 2019-01-12 16:59 | disposition home or self-care (01) ==
LOC: ER 14:55
DX: M25.551 Pain in right hip (principal); L03.90 Cellulitis, unspecified; J45.909 Unspecified asthma, uncomplicated; E11.9 Type 2 diabetes mellitus without complications; I10 Essential (primary) hypertension; F17.210 Nicotine dependence, cigarettes, uncomplicated; W01.0XXA Fall on same level from slipping, tripping and stumbling without subsequent striking against object, initial encounter; Y93.9 Activity, unspecified; Y92.9 Unspecified place or not applicable
CPT/HCPCS: 73030; 73502; 99283

== ENCOUNTER 2019-01-12 22:45 | Emergency (ER) | payer MEDICAID ==
[~2019-01-12] VITALS: Ht 162.6 cm; Wt 62.0 kg
[2019-01-13] MEDS ORDERED: IBUPROFEN 600MG TABLET PO ONE (02:45)
[2019-01-13 04:20] VITALS: BP 135/81
== END 2019-01-13 04:25 | disposition home or self-care (01) ==
LOC: ER 22:45
DX: S40.011A Contusion of right shoulder, initial encounter (principal); F17.200 Nicotine dependence, unspecified, uncomplicated; Z98.890 Other specified postprocedural states; W18.39XA Other fall on same level, initial encounter; Y93.89 Activity, other specified; Y92.89 Other specified places as the place of occurrence of the external cause; Y99.8 Other external cause status
CPT/HCPCS: 99283; A4565

== ENCOUNTER 2019-01-13 21:24 | Emergency (ER) | payer MEDICAID ==
[~2019-01-13] VITALS: Ht 167.6 cm; Wt 61.0 kg
[2019-01-14 01:20] VITALS: BP 128/77
== END 2019-01-14 01:21 | disposition home or self-care (01) ==
LOC: ER 22:58
DX: Z00.00 Encounter for general adult medical examination without abnormal findings (principal); R52 Pain, unspecified
CPT/HCPCS: 99283

== ENCOUNTER 2019-01-14 12:09 | Emergency (ER) | payer MEDICAID ==
[~2019-01-14] VITALS: Ht 162.6 cm; Wt 64.0 kg
[2019-01-14] MEDS ORDERED: IBUPROFEN 600MG TABLET PO ONE (16:45)
[2019-01-14 16:51] VITALS: BP 118/64
== END 2019-01-14 18:36 | disposition home or self-care (01) ==
LOC: ER 12:09
DX: S40.021A Contusion of right upper arm, initial encounter (principal); W01.0XXA Fall on same level from slipping, tripping and stumbling without subsequent striking against object, initial encounter; Y93.9 Activity, unspecified; Y92.090 Kitchen in other non-institutional residence as the place of occurrence of the external cause
CPT/HCPCS: 73030; 73060; 73090; 99283

== ENCOUNTER 2019-01-25 05:07 | Emergency (ER) | payer MEDICAID ==
[~2019-01-25] VITALS: Ht 167.6 cm; Wt 63.5 kg
[2019-01-25] MEDS ORDERED: IBUPROFEN 600MG TABLET PO ONE (06:30)
[2019-01-25 10:37] VITALS: BP 124/68
== END 2019-01-25 10:49 | disposition home or self-care (01) ==
LOC: ER 05:07
DX: M25.511 Pain in right shoulder (principal); J44.9 Chronic obstructive pulmonary disease, unspecified; E11.9 Type 2 diabetes mellitus without complications; I10 Essential (primary) hypertension; F10.20 Alcohol dependence, uncomplicated; Y90.0 Blood alcohol level of less than 20 mg/100 ml
CPT/HCPCS: 73030; 99283

== ENCOUNTER 2019-01-25 22:28 | Emergency (ER) | payer MEDICAID ==
[~2019-01-25] VITALS: Ht 162.6 cm; Wt 62.0 kg
[2019-01-25] MEDS ORDERED: IBUPROFEN 600MG TABLET PO STA (23:02)
[2019-01-25] MEDS ORDERED: SODIUM CHLORIDE 0.9% 1,000 ML IV ONE (23:02)
[2019-01-25 23:43] LABS: BASOPHILS % 0.2 % (0.0-2.0); EOSINOPHILS % 0.7 % (0.0-5.0); HEMATOCRIT. 37.8 % (36.0-48.0); HEMOGLOBIN. 12.7 g/dL (12.0-16.0); LYMPHOCYTES % 38.7 % (20.0-50.0); MEAN CORPUSCULAR HEMOGLOBIN 31.2 pg (28.0-32.0); MEAN PLATELET VOLUME 7.9 fl (7.4-10.4); MONOCYTES % 9.5 % (2.0-8.0); NEUTROPHILS % 50.9 % (40.0-76.0); PLATELET 286 x1000/uL (130-400); RED BLOOD CELL COUNT 4.06 mill/uL (4.2-5.4); RED CELL DISTRIBUTION WIDTH 15.3 % (11.6-14.6)
[2019-01-25 23:44] LABS: CHLORIDE 101 mEq/L (98-107)
[2019-01-25 23:49] LABS: ETHANOL BLOOD 193 mg/dL
[2019-01-25 23:49] LABS: CLARITY URINE CLEAR (CLEAR); COLOR URINE YELLOW (YELLOW); KETONES URINE NEGATIVE (NEGATIVE); LEUKOCYTE ESTERASE URINE TRACE (NEGATIVE); NITRITE URINE NEGATIVE (NEGATIVE); OCCULT BLOOD URINE NEGATIVE (NEGATIVE); PH URINE 5.5 (4.5-8.0); PROTEIN URINE NEGATIVE (NEGATIVE); SPECIFIC GRAVITY URINE 1.002 (1.005-1.030); UROBILINOGEN URINE 0.2 E.U./dL (0.2-1.0)
[2019-01-26 03:03] VITALS: BP 125/56
== END 2019-01-26 03:00 | disposition home or self-care (01) ==
LOC: ER 22:28
DX: M25.561 Pain in right knee (principal); M25.511 Pain in right shoulder; F10.129 Alcohol abuse with intoxication, unspecified; Y90.6 Blood alcohol level of 120-199 mg/100 ml; J45.909 Unspecified asthma, uncomplicated; E11.9 Type 2 diabetes mellitus without complications; I10 Essential (primary) hypertension
CPT/HCPCS: 36415; 73030; 73560; 80053; 80320; 81003; 85025; 99284; J7030; Z7610; G0480

== ENCOUNTER 2019-03-04 00:42 | Emergency (ER) | payer MEDICAID ==
[~2019-03-04] VITALS: Ht 157.5 cm; Wt 50.0 kg
[2019-03-04] MEDS ORDERED: ACETAMINOPHEN 325MG TABLET PO ONE (02:00)
[2019-03-04 02:25] VITALS: BP 108/63
== END 2019-03-04 03:34 | disposition home or self-care (01) ==
LOC: ER 00:42
DX: M79.604 Pain in right leg (principal); J45.909 Unspecified asthma, uncomplicated; E11.9 Type 2 diabetes mellitus without complications; I10 Essential (primary) hypertension; F17.200 Nicotine dependence, unspecified, uncomplicated
CPT/HCPCS: 99283

== ENCOUNTER 2019-03-16 21:17 | Emergency (ER) | payer MEDICAID ==
[~2019-03-16] VITALS: Ht 162.6 cm; Wt 61.0 kg
[2019-03-17] MEDS ORDERED: ACETAMINOPHEN 325MG TABLET PO ONE (06:00)
[2019-03-17 06:20] VITALS: BP 132/78
== END 2019-03-17 06:21 | disposition home or self-care (01) ==
LOC: ER 21:17
DX: G89.29 Other chronic pain (principal); E11.9 Type 2 diabetes mellitus without complications; I10 Essential (primary) hypertension; J45.909 Unspecified asthma, uncomplicated; F17.200 Nicotine dependence, unspecified, uncomplicated
CPT/HCPCS: 99283; 99406

== ENCOUNTER 2019-04-01 21:28 | Emergency (ER) | payer MEDICAID ==
[~2019-04-01] VITALS: Ht 162.6 cm; Wt 63.0 kg
[2019-04-02] MEDS ORDERED: ACETAMINOPHEN 500MG TABLET PO ONE (07:15)
[2019-04-02 07:46] VITALS: BP 123/64
== END 2019-04-02 07:47 | disposition home or self-care (01) ==
LOC: ER 21:28
DX: M79.10 Myalgia, unspecified site (principal); R53.1 Weakness; J45.909 Unspecified asthma, uncomplicated; E11.9 Type 2 diabetes mellitus without complications; I10 Essential (primary) hypertension
CPT/HCPCS: 99283

== ENCOUNTER 2019-04-02 21:30 | Emergency (ER) | payer MEDICAID ==
[~2019-04-02] VITALS: Ht 162.6 cm; Wt 68.0 kg
[2019-04-02 21:33] VITALS: BP 116/62
== END 2019-04-03 00:56 | disposition left against medical advice (07) ==
LOC: ER 21:30
DX: Z53.21 Procedure and treatment not carried out due to patient leaving prior to being seen by health care provider (principal)

== ENCOUNTER 2019-04-03 17:37 | Emergency (ER) | payer MEDICAID ==
[~2019-04-03] VITALS: Ht 165.1 cm; Wt 64.0 kg
[2019-04-03] MEDS ORDERED: IBUPROFEN 600MG TABLET PO ONE (18:45)
[2019-04-03 18:48] VITALS: BP 100/60
== END 2019-04-03 20:02 | disposition home or self-care (01) ==
LOC: ER 17:57
DX: T14.8XXA Other injury of unspecified body region, initial encounter (principal); W10.8XXA Fall (on) (from) other stairs and steps, initial encounter; Y93.89 Activity, other specified; Y92.018 Other place in single-family (private) house as the place of occurrence of the external cause
CPT/HCPCS: 99283

== ENCOUNTER 2019-04-05 02:11 | Emergency (ER) | payer MEDICAID ==
[~2019-04-05] VITALS: Ht 167.6 cm; Wt 64.0 kg
[2019-04-05] MEDS ORDERED: IBUPROFEN 600MG TABLET PO ONE (07:00)
[2019-04-05 08:10] VITALS: BP 112/53
== END 2019-04-05 08:20 | disposition home or self-care (01) ==
LOC: ER 02:11
DX: G89.29 Other chronic pain (principal); I10 Essential (primary) hypertension
CPT/HCPCS: 99283

== ENCOUNTER 2019-04-05 20:23 | Emergency (ER) | payer MEDICAID ==
[~2019-04-05] VITALS: Ht 162.6 cm; Wt 59.0 kg
[2019-04-06] MEDS ORDERED: IBUPROFEN 600MG TABLET PO ONE (01:45)
[2019-04-06 02:49] VITALS: BP 121/79
== END 2019-04-06 02:52 | disposition home or self-care (01) ==
LOC: ER 20:23
DX: M25.511 Pain in right shoulder (principal); I10 Essential (primary) hypertension
CPT/HCPCS: 99283

== ENCOUNTER 2019-04-07 03:47 | Emergency (ER) | payer MEDICAID ==
[~2019-04-07] VITALS: Ht 167.6 cm; Wt 68.0 kg
[2019-04-07] MEDS ORDERED: ACETAMINOPHEN 325MG TABLET PO ONE (06:15)
[2019-04-07 06:54] VITALS: BP 129/69
== END 2019-04-07 06:54 | disposition home or self-care (01) ==
LOC: ER 03:47
DX: M79.604 Pain in right leg (principal); M79.605 Pain in left leg; M79.10 Myalgia, unspecified site; F10.20 Alcohol dependence, uncomplicated; Y90.0 Blood alcohol level of less than 20 mg/100 ml
CPT/HCPCS: 99283; Z7610

== ENCOUNTER 2019-04-11 19:01 | Emergency (ER) | payer MEDICAID ==
[~2019-04-11] VITALS: Ht 172.7 cm; Wt 82.0 kg
[2019-04-11] MEDS ORDERED: ACETAMINOPHEN 325MG TABLET PO ONE (23:15)
[2019-04-12 00:30] VITALS: BP 141/71
== END 2019-04-12 00:31 | disposition home or self-care (01) ==
LOC: ER 19:01
DX: M79.10 Myalgia, unspecified site (principal); Z79.899 Other long term (current) drug therapy; W19.XXXA Unspecified fall, initial encounter; Y93.89 Activity, other specified; Y92.89 Other specified places as the place of occurrence of the external cause; Y99.8 Other external cause status
CPT/HCPCS: 99283

== ENCOUNTER 2019-04-12 12:49 | Emergency (ER) | payer MEDICAID ==
[~2019-04-12] VITALS: Ht 162.6 cm; Wt 61.0 kg
[2019-04-12] MEDS ORDERED: ACETAMINOPHEN 325MG TABLET PO ONE (14:45)
[2019-04-12 15:29] VITALS: BP 142/86
== END 2019-04-12 15:30 | disposition home or self-care (01) ==
LOC: ER 12:49
DX: G89.29 Other chronic pain (principal); M79.10 Myalgia, unspecified site; F14.10 Cocaine abuse, uncomplicated
CPT/HCPCS: 99283

== ENCOUNTER 2019-04-13 01:34 | Emergency (ER) | payer MEDICAID ==
[~2019-04-13] VITALS: Ht 162.6 cm; Wt 68.0 kg
[2019-04-13] MEDS ORDERED: ACETAMINOPHEN 325MG TABLET PO ONE (02:15)
[2019-04-13 03:39] VITALS: BP 120/75
== END 2019-04-13 03:41 | disposition home or self-care (01) ==
LOC: ER 01:34
DX: R52 Pain, unspecified (principal); W10.9XXA Fall (on) (from) unspecified stairs and steps, initial encounter; Y93.9 Activity, unspecified; Y92.9 Unspecified place or not applicable
CPT/HCPCS: 99283

== ENCOUNTER 2019-04-13 22:09 | Emergency (ER) | payer MEDICAID ==
[~2019-04-13] VITALS: Ht 167.6 cm; Wt 64.0 kg
[2019-04-14 09:30] VITALS: BP 160/63
== END 2019-04-14 11:09 | disposition home or self-care (01) ==
LOC: ER 22:09
DX: M79.18 Myalgia, other site (principal); Z59.0 Homelessness; F17.200 Nicotine dependence, unspecified, uncomplicated; F14.10 Cocaine abuse, uncomplicated; F10.20 Alcohol dependence, uncomplicated; Y90.0 Blood alcohol level of less than 20 mg/100 ml
CPT/HCPCS: 99283

== ENCOUNTER 2019-04-14 19:37 | Emergency (ER) | payer MEDICAID ==
[~2019-04-14] VITALS: Ht 162.6 cm; Wt 61.2 kg
[2019-04-15] MEDS ORDERED: HYDROCODONE/ACETAMINOPHEN 5/325MG TABLET PO ONE (00:15)
[2019-04-15] MEDS ORDERED: IBUPROFEN 600MG TABLET PO ONE (00:15)
[2019-04-15 16:30] VITALS: BP 138/73
== END 2019-04-15 16:45 | disposition home or self-care (01) ==
LOC: ER 19:37
DX: S09.8XXA Other specified injuries of head, initial encounter (principal); S20.219A Contusion of unspecified front wall of thorax, initial encounter; Z59.0 Homelessness; F17.200 Nicotine dependence, unspecified, uncomplicated; W01.0XXA Fall on same level from slipping, tripping and stumbling without subsequent striking against object, initial encounter; Y93.9 Activity, unspecified; Y92.9 Unspecified place or not applicable; Z71.6 Tobacco abuse counseling
CPT/HCPCS: 71045; 99284; 99406

== ENCOUNTER 2019-04-16 00:10 | Emergency (ER) | payer MEDICAID ==
[~2019-04-16] VITALS: Ht 165.1 cm; Wt 59.0 kg
[2019-04-16] MEDS ORDERED: IBUPROFEN 600MG TABLET PO ONE (03:15)
[2019-04-16] MEDS ORDERED: ACETAMINOPHEN 325MG TABLET PO ONE (03:15)
[2019-04-16 07:30] VITALS: BP 124/78
== END 2019-04-16 07:31 | disposition home or self-care (01) ==
LOC: ER 00:10
DX: R52 Pain, unspecified (principal); Z59.0 Homelessness; F10.20 Alcohol dependence, uncomplicated; Y90.0 Blood alcohol level of less than 20 mg/100 ml
CPT/HCPCS: 99283

== ENCOUNTER 2019-04-16 19:15 | Emergency (ER) | payer MEDICAID ==
[~2019-04-16] VITALS: Ht 165.1 cm; Wt 60.0 kg
[2019-04-17 06:30] VITALS: BP 142/84
== END 2019-04-17 13:00 | disposition left against medical advice (07) ==
LOC: ER 19:15
DX: S09.8XXA Other specified injuries of head, initial encounter (principal); M25.511 Pain in right shoulder; Z59.0 Homelessness; F10.21 Alcohol dependence, in remission; W01.0XXA Fall on same level from slipping, tripping and stumbling without subsequent striking against object, initial encounter; Y93.89 Activity, other specified; Y92.89 Other specified places as the place of occurrence of the external cause
CPT/HCPCS: 71045; 72170; 73030; 99284

== ENCOUNTER 2019-04-19 21:51 | Emergency (ER) | payer MEDICAID ==
[~2019-04-19] VITALS: Ht 157.5 cm; Wt 63.0 kg
[2019-04-19] MEDS ORDERED: ACETAMINOPHEN 325MG TABLET PO ONE (22:15)
[2019-04-20 05:30] VITALS: BP 117/64
== END 2019-04-20 16:38 | disposition home or self-care (01) ==
LOC: ER 21:51
DX: M79.18 Myalgia, other site (principal); I10 Essential (primary) hypertension; Z59.0 Homelessness
CPT/HCPCS: 99283; Z7610

== ENCOUNTER 2019-06-14 19:51 | Emergency (ER) | payer MEDICAID ==
[~2019-06-14] VITALS: Ht 167.6 cm; Wt 57.0 kg
[2019-06-14] MEDS ORDERED: ACETAMINOPHEN WITH CODEINE 300/30MG TABLET PO ONE (21:15)
[2019-06-15 09:08] VITALS: BP 125/65
== END 2019-06-15 09:15 | disposition home or self-care (01) ==
LOC: ER 19:51
DX: Z59.0 Homelessness (principal); R51 Headache
CPT/HCPCS: 99283

== ENCOUNTER 2019-06-15 19:34 | Emergency (ER) | payer MEDICAID ==
[~2019-06-15] VITALS: Ht 162.6 cm; Wt 61.0 kg
[2019-06-16 11:37] VITALS: BP 138/78
== END 2019-06-16 11:48 | disposition home or self-care (01) ==
LOC: ER 19:39
DX: M79.601 Pain in right arm (principal); J45.909 Unspecified asthma, uncomplicated; E11.9 Type 2 diabetes mellitus without complications; I10 Essential (primary) hypertension
CPT/HCPCS: 99283; Z7610

== ENCOUNTER 2019-06-16 22:47 | Emergency (ER) | payer MEDICAID ==
[~2019-06-16] VITALS: Ht 162.6 cm; Wt 73.0 kg
[2019-06-16] MEDS ORDERED: ACETAMINOPHEN 325MG TABLET PO ONE (23:30)
[2019-06-17 11:00] VITALS: BP 122/88
== END 2019-06-17 13:02 | disposition home or self-care (01) ==
LOC: ER 22:53
DX: G89.29 Other chronic pain (principal); Z59.0 Homelessness; I10 Essential (primary) hypertension
CPT/HCPCS: 99283

== ENCOUNTER 2019-06-17 22:22 | Emergency (ER) | payer MEDICAID ==
[~2019-06-17] VITALS: Ht 165.1 cm; Wt 73.0 kg
[2019-06-18 14:00] VITALS: BP 120/70
== END 2019-06-18 14:00 | disposition home or self-care (01) ==
LOC: ER 22:22
DX: M79.602 Pain in left arm (principal); M79.601 Pain in right arm; F17.200 Nicotine dependence, unspecified, uncomplicated; Z59.0 Homelessness; Z79.899 Other long term (current) drug therapy
CPT/HCPCS: 99283

== ENCOUNTER 2019-06-19 00:49 | Emergency (ER) | payer MEDICAID ==
[~2019-06-19] VITALS: Ht 165.1 cm; Wt 70.0 kg
[2019-06-19] MEDS ORDERED: ACETAMINOPHEN WITH CODEINE 300/30MG TABLET PO ONE (09:30)
[2019-06-19 12:47] VITALS: BP 126/71
== END 2019-06-19 12:47 | disposition home or self-care (01) ==
LOC: ER 01:10
DX: G89.29 Other chronic pain (principal); M54.89 Other dorsalgia; I10 Essential (primary) hypertension
CPT/HCPCS: 99283

== ENCOUNTER 2019-07-11 18:10 | Emergency (ER) | payer MEDICAID ==
[~2019-07-11] VITALS: Ht 167.6 cm; Wt 73.0 kg
[2019-07-11] MEDS ORDERED: KETOROLAC 30MG/ML VIAL IM ONE (20:30)
[2019-07-12 18:30] VITALS: BP 128/84
== END 2019-07-13 07:15 | disposition home or self-care (01) ==
LOC: ER 18:10
DX: R07.89 Other chest pain (principal); M54.89 Other dorsalgia; Z59.0 Homelessness; I10 Essential (primary) hypertension
CPT/HCPCS: 71045; 72100; 82962; 96372; 99283; J1885

== ENCOUNTER 2019-07-13 17:23 | Emergency (ER) | payer MEDICAID ==
[2019-07-13] MEDS: KETOROLAC 30MG/ML VIAL IM ONE (21:12)
[2019-07-13] MEDS: ONDANSETRON 4MG ODT PO ONE (21:13)
[2019-07-13 22:01] LABS: BASOPHILS % 0.3 % (0.0-2.0); EOSINOPHILS % 0.5 % (0.0-5.0); HEMATOCRIT. 35.9 % (36.0-48.0); HEMOGLOBIN. 12.3 g/dL (12.0-16.0); LYMPHOCYTES % 26.1 % (20.0-50.0); MEAN CORPUSCULAR HEMOGLOBIN 32.5 pg (28.0-32.0); MEAN CORPUSCULAR VOLUME 95.2 fL (81.0-99.0); MEAN PLATELET VOLUME 8.2 fl (7.4-10.4); MONOCYTES % 12.2 % (2.0-8.0); NEUTROPHILS % 60.9 % (40.0-76.0); PLATELET 232 x1000/uL (130-400); RED BLOOD CELL COUNT 3.77 mill/uL (4.2-5.4); RED CELL DISTRIBUTION WIDTH 13.6 % (11.6-14.6)
[2019-07-13 22:08] LABS: CHLORIDE 103 mEq/L (98-107)
[2019-07-13 22:12] LABS: ETHANOL BLOOD 101 mg/dL
[2019-07-14 12:00] VITALS: BP 112/78
== END 2019-07-14 12:00 | disposition home or self-care (01) ==
LOC: ER 17:23
DX: R10.9 Unspecified abdominal pain (principal); R11.2 Nausea with vomiting, unspecified; F17.290 Nicotine dependence, other tobacco product, uncomplicated; F14.10 Cocaine abuse, uncomplicated; I10 Essential (primary) hypertension
CPT/HCPCS: 36415; 80053; 80320; 83690; 85025; 96372; 99283; 99406; J1885; Q0162; G0480

== ENCOUNTER 2019-08-06 14:26 | Emergency (ER) | payer MEDICAID ==
[~2019-08-06] VITALS: Ht 167.6 cm; Wt 62.0 kg
[2019-08-06 18:09] LABS: CLARITY URINE CLEAR (CLEAR); COLOR URINE YELLOW (YELLOW); KETONES URINE NEGATIVE (NEGATIVE); LEUKOCYTE ESTERASE URINE NEGATIVE (NEGATIVE); NITRITE URINE NEGATIVE (NEGATIVE); OCCULT BLOOD URINE NEGATIVE (NEGATIVE); PH URINE 5.5 (4.5-8.0); PROTEIN URINE NEGATIVE (NEGATIVE); SPECIFIC GRAVITY URINE 1.005 (1.005-1.030); UROBILINOGEN URINE 0.2 E.U./dL (0.2-1.0)
[2019-08-06 18:18] LABS: BASOPHILS % 0.3 % (0.0-2.0); CHLORIDE 105 mEq/L (98-107); EOSINOPHILS % 0.9 % (0.0-5.0); HEMOGLOBIN. 13.7 g/dL (12.0-16.0); LYMPHOCYTES % 42.5 % (20.0-50.0); MEAN CORPUSCULAR HEMOGLOBIN 32.1 pg (28.0-32.0); MEAN CORPUSCULAR VOLUME 93.3 fL (81.0-99.0); MEAN PLATELET VOLUME 8.2 fl (7.4-10.4); MONOCYTES % 9.9 % (2.0-8.0); NEUTROPHILS % 46.4 % (40.0-76.0); PLATELET 266 x1000/uL (130-400); RED BLOOD CELL COUNT 4.28 mill/uL (4.2-5.4)
[2019-08-06] MEDS ORDERED: HYDROCODONE/ACETAMINOPHEN 5/325MG TABLET PO NR (20:45)
[2019-08-06] MEDS ORDERED: KETOROLAC 15MG/ML VIAL IV NR (20:45)
[2019-08-07 09:35] VITALS: BP 122/69
== END 2019-08-06 23:30 | disposition home or self-care (01) ==
LOC: ER 14:26
DX: M25.521 Pain in right elbow (principal); I10 Essential (primary) hypertension; F14.10 Cocaine abuse, uncomplicated; Z59.0 Homelessness; W01.0XXA Fall on same level from slipping, tripping and stumbling without subsequent striking against object, initial encounter; Y93.89 Activity, other specified; Y92.89 Other specified places as the place of occurrence of the external cause; Y99.8 Other external cause status
CPT/HCPCS: 36415; 71045; 71100; 73070; 73562; 80053; 81003; 83880; 84484; 85025; 96374; 99284; J1885

== ENCOUNTER 2019-09-06 23:59 | Emergency (ER) | payer MEDICAID ==
[~2019-09-06] VITALS: Ht 165.1 cm; Wt 61.0 kg
[2019-09-07 10:00] VITALS: BP 128/89
== END 2019-09-07 11:15 | disposition home or self-care (01) ==
LOC: ER 23:59
DX: M79.10 Myalgia, unspecified site (principal); J45.909 Unspecified asthma, uncomplicated; E11.9 Type 2 diabetes mellitus without complications; I10 Essential (primary) hypertension; R56.9 Unspecified convulsions
CPT/HCPCS: 99283

== ENCOUNTER 2019-09-08 14:16 | Emergency (ER) | payer MEDICAID ==
[~2019-09-08] VITALS: Ht 167.6 cm; Wt 64.0 kg
[2019-09-08] MEDS ORDERED: ACETAMINOPHEN 325MG TABLET PO ONE (20:45)
[2019-09-09 11:00] VITALS: BP 158/78
== END 2019-09-09 15:03 | disposition home or self-care (01) ==
LOC: ER 14:16
DX: G89.29 Other chronic pain (principal); Z59.0 Homelessness; I10 Essential (primary) hypertension; E11.9 Type 2 diabetes mellitus without complications; R56.9 Unspecified convulsions; J45.909 Unspecified asthma, uncomplicated
CPT/HCPCS: 99283

== ENCOUNTER 2019-09-09 22:10 | Emergency (ER) | payer MEDICAID ==
[~2019-09-09] VITALS: Ht 167.6 cm; Wt 55.0 kg
[2019-09-09] MEDS ORDERED: IBUPROFEN 600MG TABLET PO STA (22:35)
[2019-09-09 22:58] LABS: BASOPHILS % 0.2 % (0.0-2.0); EOSINOPHILS % 0.3 % (0.0-5.0); HEMATOCRIT. 38.9 % (36.0-48.0); HEMOGLOBIN. 13.4 g/dL (12.0-16.0); LYMPHOCYTES % 29.2 % (20.0-50.0); MEAN CORPUSCULAR HEMOGLOBIN 32.3 pg (28.0-32.0); MEAN CORPUSCULAR VOLUME 93.6 fL (81.0-99.0); MEAN PLATELET VOLUME 7.8 fl (7.4-10.4); MONOCYTES % 7.3 % (2.0-8.0); PLATELET 227 x1000/uL (130-400); RED BLOOD CELL COUNT 4.16 mill/uL (4.2-5.4); RED CELL DISTRIBUTION WIDTH 13.7 % (11.6-14.6)
[2019-09-09 23:03] LABS: CHLORIDE 102 mEq/L (98-107)
[2019-09-09 23:06] LABS: ETHANOL BLOOD 243 mg/dL
[2019-09-10 00:15] LABS: CLARITY URINE CLEAR (CLEAR); COLOR URINE YELLOW (YELLOW); KETONES URINE NEGATIVE (NEGATIVE); LEUKOCYTE ESTERASE URINE NEGATIVE (NEGATIVE); NITRITE URINE NEGATIVE (NEGATIVE); OCCULT BLOOD URINE NEGATIVE (NEGATIVE); PH URINE 5.5 (4.5-8.0); PROTEIN URINE NEGATIVE (NEGATIVE); SPECIFIC GRAVITY URINE 1.003 (1.005-1.030); UROBILINOGEN URINE 0.2 E.U./dL (0.2-1.0)
[2019-09-10 00:38] LABS: *AMPHETAMINES SCREEN URINE NEGATIVE (NEGATIVE); *BARBITURATES SCREEN URINE NEGATIVE (NEGATIVE); *BENZODIAZEPINES SCREEN URINE NEGATIVE (NEGATIVE); *COCAINE SCREEN URINE NEGATIVE (NEGATIVE); CANNABINOID URINE SCREEN NEGATIVE (NEGATIVE); METHADONE URINE SCREEN NEGATIVE (NEGATIVE); OPIATES URINE SCREEN NEGATIVE (NEGATIVE); PHENCYCLIDINE URINE SCREEN NEGATIVE (NEGATIVE)
[2019-09-10 09:17] VITALS: BP 129/71
== END 2019-09-10 09:35 | disposition home or self-care (01) ==
LOC: ER 22:10
DX: S22.31XA Fracture of one rib, right side, initial encounter for closed fracture (principal); S27.9XXA Injury of unspecified intrathoracic organ, initial encounter; T51.91XA Toxic effect of unspecified alcohol, accidental (unintentional), initial encounter; F12.10 Cannabis abuse, uncomplicated; F10.129 Alcohol abuse with intoxication, unspecified; W18.30XA Fall on same level, unspecified, initial encounter; Y90.8 Blood alcohol level of 240 mg/100 ml or more; Y93.89 Activity, other specified; Y92.89 Other specified places as the place of occurrence of the external cause; Y99.8 Other external cause status
CPT/HCPCS: 36415; 71101; 80053; 80305; 80320; 81003; 84484; 85025; 93005; 99285; G0480

== ENCOUNTER 2019-09-10 21:25 | Emergency (ER) | payer MEDICAID ==
[~2019-09-10] VITALS: Ht 165.1 cm; Wt 55.0 kg
[2019-09-11 09:57] VITALS: BP 118/67
== END 2019-09-11 09:59 | disposition home or self-care (01) ==
LOC: ER 21:25
DX: F10.229 Alcohol dependence with intoxication, unspecified (principal); F14.10 Cocaine abuse, uncomplicated; Y90.9 Presence of alcohol in blood, level not specified
CPT/HCPCS: 99283

== ENCOUNTER 2019-09-11 17:09 | Emergency (ER) | payer MEDICAID ==
[~2019-09-11] VITALS: Ht 170.2 cm; Wt 65.0 kg
[2019-09-12 08:30] VITALS: BP 118/64
== END 2019-09-12 09:57 | disposition home or self-care (01) ==
LOC: ER 17:09
DX: M79.10 Myalgia, unspecified site (principal); F14.10 Cocaine abuse, uncomplicated; Z59.0 Homelessness
CPT/HCPCS: 99283

== ENCOUNTER 2019-09-12 18:28 | Emergency (ER) | payer MEDICAID ==
[~2019-09-12] VITALS: Ht 165.1 cm; Wt 65.0 kg
[2019-09-12 18:32] VITALS: BP 122/78
== END 2019-09-12 23:00 | disposition left against medical advice (07) ==
LOC: ER 18:28
DX: M79.10 Myalgia, unspecified site (principal); Z53.21 Procedure and treatment not carried out due to patient leaving prior to being seen by health care provider

== ENCOUNTER 2019-09-13 21:03 | Emergency (ER) | payer MEDICAID ==
[~2019-09-13] VITALS: Ht 162.6 cm; Wt 52.0 kg
[2019-09-14] MEDS ORDERED: LORAZEPAM 2MG/ML CPJ ONE (03:36)
[2019-09-14] MEDS ORDERED: LORAZEPAM 2MG/ML CPJ IV ONE (03:45)
[2019-09-14] MEDS ORDERED: LEVETIRACETAM 1000MG/100ML 100 ML IV ONE (03:45)
[2019-09-14 04:12] LABS: BASOPHILS % 0.2 % (0.0-2.0); EOSINOPHILS % 0.7 % (0.0-5.0); HEMATOCRIT. 41.7 % (36.0-48.0); HEMOGLOBIN. 13.7 g/dL (12.0-16.0); LYMPHOCYTES % 60.1 % (20.0-50.0); MEAN CORPUSCULAR HEMOGLOBIN 32.5 pg (28.0-32.0); MEAN CORPUSCULAR VOLUME 98.9 fL (81.0-99.0); MEAN PLATELET VOLUME 8.9 fl (7.4-10.4); MONOCYTES % 10.8 % (2.0-8.0); NEUTROPHILS % 28.2 % (40.0-76.0); PLATELET 241 x1000/uL (130-400); RED BLOOD CELL COUNT 4.22 mill/uL (4.2-5.4); RED CELL DISTRIBUTION WIDTH 14.3 % (11.6-14.6)
[2019-09-14 04:19] LABS: CHLORIDE 100 mEq/L (98-107)
[2019-09-14 04:26] LABS: ETHANOL BLOOD < 10 mg/dL
[2019-09-14 06:17] LABS: CLARITY URINE CLEAR (CLEAR); COLOR URINE YELLOW (YELLOW); KETONES URINE NEGATIVE (NEGATIVE); LEUKOCYTE ESTERASE URINE NEGATIVE (NEGATIVE); NITRITE URINE NEGATIVE (NEGATIVE); OCCULT BLOOD URINE NEGATIVE (NEGATIVE); PROTEIN URINE 1+ (NEGATIVE); SPECIFIC GRAVITY URINE 1.015 (1.005-1.030)
[2019-09-14 06:41] LABS: *AMPHETAMINES SCREEN URINE NEGATIVE (NEGATIVE); *BARBITURATES SCREEN URINE NEGATIVE (NEGATIVE); *BENZODIAZEPINES SCREEN URINE NEGATIVE (NEGATIVE); *COCAINE SCREEN URINE NEGATIVE (NEGATIVE)
[2019-09-14 06:44] LABS: METHADONE URINE SCREEN NEGATIVE (NEGATIVE)
[2019-09-14 06:46] LABS: CANNABINOID URINE SCREEN NEGATIVE (NEGATIVE); OPIATES URINE SCREEN NEGATIVE (NEGATIVE); PHENCYCLIDINE URINE SCREEN NEGATIVE (NEGATIVE)
[2019-09-14 09:11] VITALS: BP 124/61
== END 2019-09-14 09:33 | disposition home or self-care (01) ==
LOC: ER 21:03
DX: R56.9 Unspecified convulsions (principal); R41.82 Altered mental status, unspecified; F17.200 Nicotine dependence, unspecified, uncomplicated; Z91.14 Patient's other noncompliance with medication regimen
CPT/HCPCS: 36415; 70450; 72125; 80053; 80305; 80320; 81003; 85025; 96365; 96375; 99285; J1953; J2060; Z7610; G0480

== ENCOUNTER 2019-09-15 00:53 | Emergency (ER) | payer MEDICAID ==
[~2019-09-15] VITALS: Ht 162.6 cm; Wt 66.0 kg
[2019-09-15] MEDS ORDERED: ACETAMINOPHEN 325MG TABLET PO ONE (02:15)
[2019-09-15] MEDS ORDERED: LEVETIRACETAM 500MG TABLET PO ONE (02:15)
[2019-09-15] MEDS ORDERED: IBUPROFEN 600MG TABLET PO ONE (02:45)
[2019-09-15 11:14] VITALS: BP 136/63
== END 2019-09-15 11:29 | disposition home or self-care (01) ==
LOC: ER 00:53
DX: G89.29 Other chronic pain (principal); M79.18 Myalgia, other site; F14.10 Cocaine abuse, uncomplicated; F10.20 Alcohol dependence, uncomplicated; Y90.0 Blood alcohol level of less than 20 mg/100 ml
CPT/HCPCS: 99284

== ENCOUNTER 2019-09-15 20:24 | Emergency (ER) | payer MEDICAID ==
[~2019-09-15] VITALS: Ht 165.1 cm; Wt 73.0 kg
[2019-09-16] MEDS: LEVETIRACETAM 500MG TABLET PO ONE (00:06)
[2019-09-16] MEDS: ACETAMINOPHEN 325MG TABLET PO ONE (00:06)
[2019-09-16 11:00] VITALS: BP 108/74
== END 2019-09-16 12:15 | disposition home or self-care (01) ==
LOC: ER 20:24
DX: G89.29 Other chronic pain (principal); M79.18 Myalgia, other site; F14.10 Cocaine abuse, uncomplicated
CPT/HCPCS: 99283

== ENCOUNTER 2019-09-16 22:12 | Emergency (ER) | payer MEDICAID ==
[~2019-09-16] VITALS: Ht 162.6 cm; Wt 53.0 kg
[2019-09-17] MEDS ORDERED: ACETAMINOPHEN 325MG TABLET PO ONE (02:45)
[2019-09-17 15:50] VITALS: BP 120/72
== END 2019-09-17 15:52 | disposition home or self-care (01) ==
LOC: ER 22:12
DX: M79.10 Myalgia, unspecified site (principal); F14.10 Cocaine abuse, uncomplicated
CPT/HCPCS: 99283

== ENCOUNTER 2020-01-27 04:15 | Emergency (ER) | payer MEDICAID ==
[~2020-01-27] VITALS: Ht 165.1 cm; Wt 59.0 kg
[2020-01-27] MEDS ORDERED: SODIUM CHLORIDE 0.9% 1,000 ML IV ONE (04:17)
[2020-01-27] MEDS ORDERED: KETOROLAC 30MG/ML VIAL IV STA (04:17)
[2020-01-27 05:48] LABS: BASOPHILS % 0.4 % (0.0-2.0); EOSINOPHILS % 0.5 % (0.0-5.0); HEMATOCRIT. 36.4 % (36.0-48.0); HEMOGLOBIN. 12.7 g/dL (12.0-16.0); LYMPHOCYTES % 32.4 % (20.0-50.0); MEAN CORPUSCULAR HEMOGLOBIN 31.9 pg (28.0-32.0); MEAN CORPUSCULAR VOLUME 91.7 fL (81.0-99.0); NEUTROPHILS % 58.7 % (40.0-76.0); PLATELET 231 x1000/uL (130-400); RED BLOOD CELL COUNT 3.97 mill/uL (4.2-5.4); RED CELL DISTRIBUTION WIDTH 14.9 % (11.6-14.6)
[2020-01-27 05:50] LABS: CHLORIDE 109 mEq/L (98-107)
[2020-01-27 05:56] LABS: ETHANOL BLOOD 281 mg/dL
[2020-01-27 07:06] LABS: *AMPHETAMINES SCREEN URINE NEGATIVE (NEGATIVE); *BARBITURATES SCREEN URINE NEGATIVE (NEGATIVE); *BENZODIAZEPINES SCREEN URINE NEGATIVE (NEGATIVE); *COCAINE SCREEN URINE NEGATIVE (NEGATIVE); METHADONE URINE SCREEN NEGATIVE (NEGATIVE); OPIATES URINE SCREEN NEGATIVE (NEGATIVE)
[2020-01-27 07:07] LABS: CANNABINOID URINE SCREEN NEGATIVE (NEGATIVE); PHENCYCLIDINE URINE SCREEN NEGATIVE (NEGATIVE)
[2020-01-27 09:30] VITALS: BP 116/70
[2020-04-10] MEDS ORDERED: LACT10SO7 PO (13:15)
[2020-04-10] MEDS ORDERED: KEPP500 MT (13:16)
[2020-04-10] MEDS ORDERED: AZIT500T8 PO (13:19)
== END 2020-01-27 09:31 | disposition home or self-care (01) ==
LOC: ER 04:15
DX: M79.641 Pain in right hand (principal); M84.48XG Pathological fracture, other site, subsequent encounter for fracture with delayed healing; F10.129 Alcohol abuse with intoxication, unspecified; Y90.8 Blood alcohol level of 240 mg/100 ml or more; W01.0XXA Fall on same level from slipping, tripping and stumbling without subsequent striking against object, initial encounter; Y93.89 Activity, other specified; Y92.9 Unspecified place or not applicable
CPT/HCPCS: 36415; 70450; 71045; 71100; 73110; 73130; 80053; 80305; 80320; 83880; 84484; 85025; 93005; 96374; 99285; J1885; J7030; G0480

== ENCOUNTER 2020-05-02 23:51 | Emergency (ER) | payer MEDICAID ==
[~2020-05-02] VITALS: Ht 162.6 cm; Wt 54.0 kg
[~2020-05-02 23:51] MED LIST changes: +AZIT500T8 PO; +KEPP500 MT; +LACT10SO7 PO; -MOTRIN
[2020-05-03 00:04] VITALS: BP 139/76
[2020-05-03 02:35] LABS: CHLORIDE 103 mEq/L (98-107)
[2020-05-03 02:39] LABS: BASOPHILS % 0.2 % (0.0-2.0); EOSINOPHILS % 0.7 % (0.0-5.0); HEMATOCRIT. 40.6 % (36.0-48.0); HEMOGLOBIN. 13.9 g/dL (12.0-16.0); LYMPHOCYTES % 19.5 % (20.0-50.0); MEAN CORPUSCULAR HEMOGLOBIN 32.7 pg (28.0-32.0); MEAN CORPUSCULAR VOLUME 95.4 fL (81.0-99.0); MEAN PLATELET VOLUME 7.8 fl (7.4-10.4); MONOCYTES % 9.4 % (2.0-8.0); NEUTROPHILS % 70.2 % (40.0-76.0); PLATELET 196 x1000/uL (130-400); RED BLOOD CELL COUNT 4.26 mill/uL (4.2-5.4); RED CELL DISTRIBUTION WIDTH 13.6 % (11.6-14.6)
[2020-05-03 02:44] LABS: ETHANOL BLOOD 99 mg/dL
== END 2020-05-03 05:45 | disposition home or self-care (01) ==
LOC: ER 23:51
DX: G89.29 Other chronic pain (principal); F10.129 Alcohol abuse with intoxication, unspecified; F12.10 Cannabis abuse, uncomplicated; F14.10 Cocaine abuse, uncomplicated; I10 Essential (primary) hypertension; E11.9 Type 2 diabetes mellitus without complications; Y90.4 Blood alcohol level of 80-99 mg/100 ml
CPT/HCPCS: 36415; 80053; 80320; 82962; 85025; 99283; G0480

== ENCOUNTER 2020-05-10 09:54 | Emergency (ER) | payer MEDICAID ==
[~2020-05-10] VITALS: Ht 172.7 cm; Wt 64.0 kg
[2020-05-10] MEDS ORDERED: IBUPROFEN 600MG TABLET PO ONE (11:15)
[2020-05-10] MEDS ORDERED: KETOROLAC 30MG/ML VIAL IM ONE (15:00)
[2020-05-10 18:55] VITALS: BP 125/68
== END 2020-05-10 19:01 | disposition home or self-care (01) ==
LOC: ER 10:17
DX: G89.29 Other chronic pain (principal); F14.10 Cocaine abuse, uncomplicated; F12.10 Cannabis abuse, uncomplicated; E11.9 Type 2 diabetes mellitus without complications; Z59.0 Homelessness
CPT/HCPCS: 99283; J1885

== ENCOUNTER 2020-05-15 01:09 | Emergency (ER) | payer MEDICAID ==
[~2020-05-15] VITALS: Ht 170.2 cm; Wt 68.0 kg
[2020-05-15] MEDS ORDERED: ACETAMINOPHEN 325MG TABLET PO SCH (02:21)
[2020-05-15 02:30] VITALS: BP 133/74
== END 2020-05-15 02:31 | disposition home or self-care (01) ==
LOC: ER 01:09
DX: M79.10 Myalgia, unspecified site (principal); F10.10 Alcohol abuse, uncomplicated; Y90.9 Presence of alcohol in blood, level not specified; E11.9 Type 2 diabetes mellitus without complications; B20 Human immunodeficiency virus [HIV] disease
CPT/HCPCS: 99283

== ENCOUNTER 2020-05-29 13:47 | Emergency (ER) | payer MEDICAID ==
[~2020-05-29] VITALS: Ht 175.3 cm; Wt 74.0 kg
[2020-05-29 13:50] VITALS: BP 130/80
[2020-05-29] MEDS ORDERED: ACETAMINOPHEN 325MG TABLET PO STA (14:19)
== END 2020-05-29 15:09 | disposition home or self-care (01) ==
LOC: ER 13:47
DX: M79.10 Myalgia, unspecified site (principal); F10.10 Alcohol abuse, uncomplicated; Y90.9 Presence of alcohol in blood, level not specified
CPT/HCPCS: 99283

== ENCOUNTER 2020-05-29 18:16 | Emergency (ER) | payer MEDICAID ==
[~2020-05-29] VITALS: Ht 134.6 cm; Wt 61.0 kg
[2020-05-29] MEDS ORDERED: KETOROLAC 30MG/ML VIAL IM ONE (19:30)
[2020-05-29 20:32] VITALS: BP 145/60
== END 2020-05-29 20:33 | disposition home or self-care (01) ==
LOC: ER 18:16
DX: G89.29 Other chronic pain (principal)
CPT/HCPCS: 96372; 99283; J1885

== ENCOUNTER 2020-05-30 09:36 | Emergency (ER) | payer MEDICAID ==
[~2020-05-30] VITALS: Ht 167.6 cm; Wt 62.0 kg
[2020-05-30 10:09] VITALS: BP 138/78
[2020-05-30] MEDS ORDERED: ACETAMINOPHEN 325MG TABLET PO ONE (10:15)
== END 2020-05-30 11:18 | disposition home or self-care (01) ==
LOC: ER 10:27
DX: M79.10 Myalgia, unspecified site (principal); F10.129 Alcohol abuse with intoxication, unspecified; Y90.9 Presence of alcohol in blood, level not specified
CPT/HCPCS: 99283

== ENCOUNTER 2020-06-07 08:53 | Emergency (ER) | payer MEDICAID ==
[~2020-06-07] VITALS: Ht 162.6 cm; Wt 64.0 kg
[2020-06-07 11:07] LABS: BASOPHILS % 0.2 % (0.0-2.0); EOSINOPHILS % 0.4 % (0.0-5.0); HEMATOCRIT. 41.4 % (36.0-48.0); HEMOGLOBIN. 14.2 g/dL (12.0-16.0); LYMPHOCYTES % 45.5 % (20.0-50.0); MEAN CORPUSCULAR HEMOGLOBIN 32.9 pg (28.0-32.0); MEAN CORPUSCULAR VOLUME 95.8 fL (81.0-99.0); MEAN PLATELET VOLUME 7.5 fl (7.4-10.4); MONOCYTES % 10.1 % (2.0-8.0); NEUTROPHILS % 43.8 % (40.0-76.0); PLATELET 259 x1000/uL (130-400); RED BLOOD CELL COUNT 4.32 mill/uL (4.2-5.4); RED CELL DISTRIBUTION WIDTH 13.3 % (11.6-14.6)
[2020-06-07 11:15] LABS: CHLORIDE 110 mEq/L (98-107)
[2020-06-07 11:39] LABS: ETHANOL BLOOD 391 mg/dL
[2020-06-07 20:58] VITALS: BP 121/57
== END 2020-06-07 21:59 | disposition home or self-care (01) ==
LOC: ER 08:53
DX: F10.129 Alcohol abuse with intoxication, unspecified (principal); F14.10 Cocaine abuse, uncomplicated; F12.10 Cannabis abuse, uncomplicated; Y90.8 Blood alcohol level of 240 mg/100 ml or more
CPT/HCPCS: 36415; 80053; 80320; 84484; 85025; 99285; G0480

== ENCOUNTER 2020-06-12 13:49 | Emergency (ER) | payer MEDICAID ==
[~2020-06-12] VITALS: Ht 157.5 cm; Wt 62.0 kg
[2020-06-12 15:08] VITALS: BP 136/79
[2020-06-12] MEDS ORDERED: ACETAMINOPHEN 325MG TABLET PO STA (15:24)
[2020-06-12] MEDS ORDERED: IBUPROFEN 600MG TABLET PO STA (15:24)
[2020-06-12] MEDS ORDERED: ACETAMINOPHEN 325MG TABLET PO ONE (16:00)
== END 2020-06-12 16:20 | disposition home or self-care (01) ==
LOC: ER 13:49 → CANBEDREQ 20:08
DX: F10.20 Alcohol dependence, uncomplicated (principal); Y90.9 Presence of alcohol in blood, level not specified; G89.29 Other chronic pain
CPT/HCPCS: 99283

== ENCOUNTER 2020-06-14 13:42 | Emergency (ER) | payer MEDICAID ==
[~2020-06-14] VITALS: Ht 165.1 cm; Wt 62.0 kg
[2020-06-14] MEDS ORDERED: ACETAMINOPHEN 325MG TABLET PO STA (14:02)
[2020-06-14 15:42] LABS: BASOPHILS % 0.1 % (0.0-2.0); EOSINOPHILS % 0.4 % (0.0-5.0); HEMATOCRIT. 38.6 % (36.0-48.0); HEMOGLOBIN. 13.2 g/dL (12.0-16.0); LYMPHOCYTES % 20.5 % (20.0-50.0); MEAN CORPUSCULAR HEMOGLOBIN 32.8 pg (28.0-32.0); MEAN CORPUSCULAR VOLUME 96.1 fL (81.0-99.0); MEAN PLATELET VOLUME 8.3 fl (7.4-10.4); MONOCYTES % 7.9 % (2.0-8.0); NEUTROPHILS % 71.1 % (40.0-76.0); PLATELET 250 x1000/uL (130-400); RED BLOOD CELL COUNT 4.01 mill/uL (4.2-5.4); RED CELL DISTRIBUTION WIDTH 13.4 % (11.6-14.6)
[2020-06-14 15:47] LABS: CHLORIDE 103 mEq/L (98-107)
[2020-06-14 15:51] LABS: ETHANOL BLOOD 87 mg/dL
[2020-06-14 15:53] LABS: INR 0.9
[2020-06-14 16:30] VITALS: BP 115/51
== END 2020-06-14 18:45 | disposition home or self-care (01) ==
LOC: ER 13:42
DX: F10.129 Alcohol abuse with intoxication, unspecified (principal); M79.601 Pain in right arm; M25.511 Pain in right shoulder; F14.10 Cocaine abuse, uncomplicated; F12.10 Cannabis abuse, uncomplicated; Y90.4 Blood alcohol level of 80-99 mg/100 ml
CPT/HCPCS: 36415; 73030; 73060; 80053; 80320; 85025; 99285; G0480

== ENCOUNTER 2020-06-15 20:07 | Emergency (ER) | payer MEDICAID ==
[~2020-06-15] VITALS: Ht 157.5 cm; Wt 58.0 kg
[2020-06-15] MEDS ORDERED: SODIUM CHLORIDE 0.9% 1,000 ML IV ONE (20:30)
[2020-06-15 23:42] LABS: CHLORIDE 101 mEq/L (98-107)
[2020-06-15 23:45] LABS: ETHANOL BLOOD 236 mg/dL
[2020-06-15 23:46] LABS: BASOPHILS % 0.1 % (0.0-2.0); EOSINOPHILS % 0.9 % (0.0-5.0); HEMATOCRIT. 37.4 % (36.0-48.0); HEMOGLOBIN. 12.7 g/dL (12.0-16.0); LYMPHOCYTES % 37.3 % (20.0-50.0); MEAN CORPUSCULAR HEMOGLOBIN 32.6 pg (28.0-32.0); MEAN CORPUSCULAR VOLUME 95.7 fL (81.0-99.0); MEAN PLATELET VOLUME 8.2 fl (7.4-10.4); MONOCYTES % 7.6 % (2.0-8.0); NEUTROPHILS % 54.1 % (40.0-76.0); PLATELET 238 x1000/uL (130-400); RED BLOOD CELL COUNT 3.91 mill/uL (4.2-5.4); RED CELL DISTRIBUTION WIDTH 13.5 % (11.6-14.6)
[2020-06-16 06:09] VITALS: BP 116/56
== END 2020-06-16 06:37 | disposition home or self-care (01) ==
LOC: ER 20:07
DX: F10.229 Alcohol dependence with intoxication, unspecified (principal); Y90.7 Blood alcohol level of 200-239 mg/100 ml; M79.601 Pain in right arm; F14.10 Cocaine abuse, uncomplicated; F12.10 Cannabis abuse, uncomplicated; Z79.899 Other long term (current) drug therapy
CPT/HCPCS: 36415; 71045; 73060; 73090; 80053; 80320; 85025; 99285; J7030; G0480

== ENCOUNTER 2020-06-21 05:23 | Emergency (ER) | payer MEDICAID ==
[~2020-06-21] VITALS: Ht 165.1 cm; Wt 73.0 kg
[2020-06-21 05:25] VITALS: BP 160/90
[2020-06-21] MEDS ORDERED: ACETAMINOPHEN 325MG TABLET PO STA (06:21)
[2020-06-21 06:43] LABS: BASOPHILS % 0.3 % (0.0-2.0); EOSINOPHILS % 0.6 % (0.0-5.0); HEMATOCRIT. 36.8 % (36.0-48.0); HEMOGLOBIN. 12.6 g/dL (12.0-16.0); MEAN CORPUSCULAR HEMOGLOBIN 32.8 pg (28.0-32.0); MEAN CORPUSCULAR VOLUME 95.6 fL (81.0-99.0); MEAN PLATELET VOLUME 7.6 fl (7.4-10.4); NEUTROPHILS % 59.1 % (40.0-76.0); PLATELET 260 x1000/uL (130-400); RED BLOOD CELL COUNT 3.85 mill/uL (4.2-5.4); RED CELL DISTRIBUTION WIDTH 13.5 % (11.6-14.6)
[2020-06-21 06:55] LABS: CHLORIDE 104 mEq/L (98-107)
[2020-06-21 06:57] LABS: ETHANOL BLOOD 271 mg/dL
== END 2020-06-21 12:32 | disposition home or self-care (01) ==
LOC: ER 05:23
DX: T51.0X1A Toxic effect of ethanol, accidental (unintentional), initial encounter (principal); Y92.89 Other specified places as the place of occurrence of the external cause; Y90.8 Blood alcohol level of 240 mg/100 ml or more; I10 Essential (primary) hypertension; Z79.899 Other long term (current) drug therapy
CPT/HCPCS: 36415; 80053; 80320; 85025; 93005; 99284; G0480

== ENCOUNTER 2020-06-23 15:25 | Emergency (ER) | payer MEDICAID ==
[~2020-06-23] VITALS: Ht 157.5 cm; Wt 60.0 kg
[2020-06-23] MEDS ORDERED: ACETAMINOPHEN 650MG/20.3ML UDC PO ONE (17:30)
[2020-06-23 19:36] VITALS: BP 140/68
== END 2020-06-23 19:38 | disposition home or self-care (01) ==
LOC: ER 15:25
DX: I10 Essential (primary) hypertension (principal); M79.672 Pain in left foot; M79.671 Pain in right foot
CPT/HCPCS: 73610; 73630; 99284

== ENCOUNTER 2020-06-24 12:13 | Emergency (ER) | payer MEDICAID ==
[~2020-06-24] VITALS: Ht 162.6 cm; Wt 62.0 kg
[2020-06-24] MEDS ORDERED: ACETAMINOPHEN 325MG TABLET PO ONE (12:30)
[2020-06-24 13:01] VITALS: BP 141/100
== END 2020-06-24 13:02 | disposition home or self-care (01) ==
LOC: ER 12:13
DX: M79.602 Pain in left arm (principal); I10 Essential (primary) hypertension; F10.10 Alcohol abuse, uncomplicated; Y90.9 Presence of alcohol in blood, level not specified
CPT/HCPCS: 99282